=== PATIENT | female | born 1950 | race Hispanic/Latino ===

== ENCOUNTER 2025-02-22 17:48 | Inpatient (IN) | payer MEDICARE, MEDICAID ==
[~2025-02-22] VITALS: Ht 172.7 cm; Wt 89.4 kg
[2025-02-22] MEDS ORDERED: AMIOdarone 150MG VIAL IV ONE (22:15)
[2025-02-22] MEDS ORDERED: rocuRONium bROMide 10MG/1ML 5ML VL IV ONE (22:15)
--- NOTE | 2025-02-22 23:28 | HP ---
[facility] HISTORY AND PHYSICAL Date of Service: February 22, 2025 Time of Service: 23:28 Supervising physicians/attending physicians: Dr. Nathan and Dr. Alexei Burciaga HISTORY OF PRESENT ILLNESS: Ms. Rodriguez is a 74 year old female with a history of AFib, HTN, d yslipidemia, CAD, CHF, and dementia who presented to [facility] as a transfer from [facility] for the Diagnosis of triple-vessel disease and for evaluation of a CABG. The [facility] RN reports that on arrival patient's blood pressure was 82/44, heart rate 81, map 62, 98% on room air. He reports the patient was clammy and diaphoretic. EKG was done which showed sinus rhythm, PACs, L BBB, ST-elevation secondary to IVCD. Per chart review the patient presented to [facility] and was found to have leukocytosis, normocytic anemia, hypokalemia, elevated LFTs, elevated troponin, and hypoalbuminemia. The patient is a Jehovah Witness. The patient had an ultrasound of the abdomen which revealed complex hepatic cyst apparently surgery was consulted in the past but patient declined intervention. Other significant finding was dilated common bile duct with sternal echogenic material with posterior shadowing favoring choledocholithiasis. The patient was transferred on Levophed to ICU and was started on heparin drip. RN called FLOR Robbins/CV surgeon's assistant golf course superintendent as per admission order and to update her on the patient, but there was no answered. RN called Dr. Plascencia and informed him of the patient. Critical care Care was consulted for critical care management. [employer] team we will continue monitoring patient closely alongside of critical Care team, Cardiology, and CV surgeon. During my assessment patient looked fragile and diaphoretic. The patient's breathing was even, unlabored. Daughter at bedside reports that the patient has had a low blood pressure all day at [facility] and that the patient was in 2nd floor which she believes was the ICU. I informed the patient and daughter at bedside of plan of care. They verbalized understanding and are in agreement with the plan. Plan and assessment are listed below. REVIEW OF SYSTEMS 12-point ROS reviewed. All pertinent positives mentioned above. Otherwise negative, noncontributory, non-pertinent. PAST MEDICAL HISTORY: As mentioned above PAST SURGICAL HISTORY: Cholecystectomy PAST SOCIAL HISTORY: Denied alcohol, tobacco, illicit drug use FAMILY HISTORY: Noncontributory Coded Allergies: No Known Drug Allergies (Unverified Allergy, Unknown, 02/22/25) PHYSICAL EXAM GENERAL APPEARANCE: The patient is awake, alert, and oriented, in no acute cardiopulmonary distress. Appears weak, diaphoretic. NEUROLOGICAL: Cranial nerves II-XII grossly intact. Motor is 5/5 in bilateral upper and lower extremities proximal to distal. No sensory deficits. HEENT: Face is symmetric. Pupils are equal and reactive. Extraocular movements are intact. NECK: Supple. No JVD. No thyromegaly. No submental, submandibular, pre- /postauricular, occipital or supraclavicular lymphadenopathy. CHEST: Normal chest expansion. No Telemetry. LUNGS: Absence of any rales, rhonchi or any wheezing. CARDIOVASCULAR: Regular. S1 and S2 normal. No appreciable rubs, murmurs or gallops. ABDOMEN: Soft, nontender, and nondistended. There is no rebound, voluntary guarding, or rigidity. : Deferred. No Means. EXTREMITIES: Non-edematous and not cyanotic. No clubbing. Good capillary refill. SKIN: No skin breakdown. LABS: Laboratory: Test 02/22/25 23:23 Range/Units Whole Blood Glucose 135 H 70-110 MG/DL DIAGNOSTICS / RADIOLOGY: [ ] ASSESSMENT: Triple-vessel disease, POA Non ST-elevation [place] type , elevated troponins Paroxysmal atrial fibrillation with RVR Left ventricular systolic function is moderate, per echo on 02/19/2025 Global wall hypokinesis LVEF is 40-45%, per echo on 02/19/2025. Severe diastolic dysfunction (restrictive filling), per echo on 02/19/2025 Mild aortic, mitral, and tricuspid regurgitation, per echo on 02/19/2025. Bradycardia episodes, POA Rhino virus, possibly bronchopneumonia Transaminitis Polycystic liver disease Significant increase in the size of intrahepatic cystic lesions, associated with increased intrahepatic bile duct dilatation, per MRCP on 02/21/2025 Common bile duct dilatation Chronic problem list: AFib, HTN, dyslipidemia, CAD, CHF, dementia Jehovah Witness PLAN: -Patient transferred from [facility] to [facility]. -Transferred to ICU due to symptomatic hypotension with continuous cardiac monitoring and pulse oximetry monitoring. -Consult cardiology and CV surgeon. (RN informed Dr. Plascencia of patient's arrival) -Start Levophed to keep map above 65. -Start heparin drip. -Stat labs, ABGs, chest x-ray, EKG -Troponin levels and EKG series. -2D echo done at [facility]. -p.r.n. medications for: Pain management, fever, nausea, vomiting, constipation, shortness of breath. -Oxygen supplement as needed to maintain oxygen levels equal to or greater than 92% -Nitroglycerin sublingual as needed chest pain -Atorvastatin 40 mg PO daily. -vital signs per ICU -Reconcile home medications once available. -Glucometer checks before meals and at bedtime with insulin regular sliding scale. -AM labs. -monitor renal and liver function. -Monitor electrolytes and treat accordingly. -DVT and GI prophylaxis: Heparin and Pepcid ADVANCED CARE PLANNING 1. Which of the following were discussed? Hospice Care - No Therapeutic options - Yes Advance Directives - Yes Other discussions - 2. Discussed with who? Patient 3. Voluntary nature of this service was explained to the patient? Yes 4. Amount of time spent - __ over 45 minutes Due to a high probability for clinically significant, life-threatening deterioration, the patient required my highest level of preparedness to intervene emergently, and I personally spent over 45 minutes of critical care time directly and personally managing the patient. I devoted my full attention to the patient during this time, which is separate from time spent on any billable procedures. This includes time spent involved in work directly related to the care of the patient: such as review of prior records, development of treatment plan with patient and/or surrogate as well as nursing, discussions with consultants, evaluation of patient's response to treatment, examination of patient, obtaining history from patient or surrogate, ordering and performing treatments and interventions, ordering and review of laboratory studies, ordering and review of radiographic studies, pulse oximetry and re-evaluation of patient's condition, discussions with the family members and the patient, and any required documentation. This critical care time was performed to assess and manage the high probability of imminent life-threatening deterioration that could result in multi-organ failure. This dictation was prepared using [employer] voice recognition software. As a result, errors may occur. When identified, these errors have been corrected. While every attempt is made to correct errors during dictation, errors may still exist. 5. Reviewed by Physician? (if this service was performed by CANDIE) Yes ATTESTATION BY PHYSICIAN I have seen and examined the patient. I reviewed the documentation, medical decision making, and treatment plan as noted by the mid-level provider above. I agree with the findings and plan of care. ELVIRA BRYAN [facility] February 22, 2025 23:28
[2025-02-22 23:30] VITALS: BP_SYST 82; BP_SYST 87; BP_DIAS 44; BP_DIAS 5; PULSE 80; PULSE 81; RESP 20; RESP 22; TEMP 97.5; TEMP 98
[2025-02-22 23:40] VITALS: BP 86/63; PULSE 80; RESP 20
[2025-02-22 23:44] VITALS: BP 127/86; PULSE 80; RESP 18; TEMP 100.2; O2SAT 98
[2025-02-22 23:54] VITALS: TEMP 100.2
[2025-02-22 23:59] VITALS: BP 108/68; PULSE 80; RESP 17
[2025-02-23] VITALS (72 sets, daily range): BP systolic 70–138; BP diastolic 23–112; PULSE 72–91; RESP 9–72; TEMP 97.5–97.8; O2SAT 92–98
[2025-02-23] MEDS ORDERED: doCUSate SODIUM 100 MG CAP PO PRN
[2025-02-23] MEDS ORDERED: acetaMINOPHEN 650 MG SUPPOSITORY RC PRN
[2025-02-23] MEDS ORDERED: TEMAZepam 15 MG CAPSULE PO PRN
[2025-02-23] MEDS ORDERED: LACTULOSE 20 GM/30 ML UDCUP PO PRN
[2025-02-23] MEDS ORDERED: acetaMINOPHEN 325 MG TAB PO PRN
--- NOTE | 2025-02-23 00:10 | NUR ---
Admission Events 02/22/2025 2330: patient arrived via EMS to room 201 complaining of clamminess and sweating, 12-lead EKG done and vitals taken, patient was hypotensive with systolic in the 80's. Admitting team notified and orders for ICU upgrade obtained, patient to be placed on Levophed drip. 2340: Goldsmith SENIOR WEB APPLICATIONS DEVELOPER at bedside. 2350: patient transferred to ICU. 0000: care endorsed to Jh RYA. 02/23/2025 0006: Dr. Plascencia made aware of admission from [place], and transfer to ICU. Orders obtained to keep patient NPO.
[2025-02-23 00:33] LABS: ABG BASE EXCESS -2.6 mmol/L (-2.0-3.0); ABG HCO3 19.7 mmol/L (21.0-28.0); ABG OXYGEN SATURATION 98.4 % (94.0-98.0); ABG PCO2 26 mmHg (32-45); ABG PH 7.492 (7.350-7.450); CARBON MONOXIDE 0.3 % (0.5-1.5); DEVICE COMMENT ROB RN, RB; HHb 1.6; PO2, ARTERIAL BG 149.8 mmHg (83.0-108.0); VENT MODE, BG 2LNC (ROOM AIR)
[2025-02-23 00:43] LABS: BASOPHILS # (AUTO) 0.03 K/uL (0.00-0.20); BASOPHILS % (AUTO) 0.1 % (0.0-5.0); HEMATOCRIT 27.2 % (36-48); IMMATURE GRANULOCYTE ABSOLUTE 0.16 K/uL (0-1); MEAN CORPUSCULAR HEMOGLOBIN 31.9 pg (27.0-33.0); MEAN CORPUSCULAR HGB CONC 34.9 g/dL (32.0-36.0); MEAN CORPUSCULAR VOLUME 91.3 fL (79-99); MONOCYTES # (AUTO) 1.5 K/uL (0.1-1.0); MONOCYTES % (AUTO) 7.5 % (3.0-13.0); NEUTROPHILS # (AUTO) 16.4 K/uL (1.8-7.7); NEUTROPHILS % (AUTO) 81.6 % (40.0-77.0); PLATELET COUNT (AUTO) 217 K/uL (130-400); RED BLOOD CELL COUNT(AUTO) 2.98 MIL/uL (4.00-5.50); RED CELL DISTRIBUTION WIDTH 13.4 % (11.0-15.5); WHITE BLOOD COUNT (AUTO) 20.1 K/uL (4.8-10.8)
[2025-02-23 00:50] LABS: CREATININE 2.8 mg/dL (0.5-1.0); POTASSIUM 3.7 mmol/L (3.5-5.1)
[2025-02-23 01:04] LABS: ALBUMIN 2.5 g/dL (3.5-5.0); BILIRUBIN,TOTAL 3.5 mg/dL (0.2-1.0)
[2025-02-23 01:15] LABS: B-TYPE NATRIURETIC PEPTIDE 80 pg/mL (0-100)
[2025-02-23 01:16] LABS: WBC MORPHOLOGY CONSISTENT W/DIFF
[2025-02-23] MEDS: NOREPINEPHRIN 4MG/NS 250ML 250 ML IV ONE (01:49)
[2025-02-23] MEDS: atorVAStatin 40 MG TABLET PO SCH (01:51)
[2025-02-23] MEDS: HEParin 25,000 UNITS/250ML D5W 250 ML IV SCH (01:55)
[2025-02-23 04:48] LABS: HEMATOCRIT 28.9 % (36-48); MEAN CORPUSCULAR HGB CONC 33.2 g/dL (32.0-36.0); MEAN CORPUSCULAR VOLUME 93.2 fL (79-99); NUCLEATED RED BLOOD CELLS 0.1 % (0.0-0.19); RED BLOOD CELL COUNT(AUTO) 3.1 MIL/uL (4.00-5.50); RED CELL DISTRIBUTION WIDTH 13.8 % (11.0-15.5); WHITE BLOOD COUNT (AUTO) 19.4 K/uL (4.8-10.8)
[2025-02-23 05:02] LABS: CREATININE 3.1 mg/dL (0.5-1.0); MAGNESIUM 2.2 mg/dL (1.80-2.40); PHOSPHORUS 5.9 mg/dL (2.5-4.9); POTASSIUM 3.7 mmol/L (3.5-5.1); THYROID STIMULATING HORMONE 2.59 uIU/mL (0.36-3.74)
[2025-02-23 05:07] LABS: HEMOGLOBIN A1C 5.9 % (4.0-6.0)
[2025-02-23] MEDS: NOREPINEPHRIN 4MG/NS 250ML 250 ML IV SCH (06:39)
[2025-02-23] MEDS: INSULIN humuLIN R 100 UNIT/ML 3ML SQ SCH (06:49)
--- NOTE | 2025-02-23 08:48 | EKG ---
[facility] Test Date: 2025-02-22 Test Time: 23:16:00 Pat Name: YVONNE STINSON Department: [facility] Room: 208 1 Gender: F Aix Administrator: ruben rn : [id number] Requested By: ELVIRA BRYAN Order Number: [id number] Reading MD: Jewel Farris Measurements Intervals [place] Rate: 82 P: -33 OR: 136 QRS: -39 QRSD: 165 T: 69 QT: 520 QTc: 606 Interpretive Statements Sinus rhythm Atrial premature complexes Left bundle branch block ST elevation secondary to IVCD No previous ECG available for comparison Electronically Signed On 02-25-2025 12:27:09 CDT by Jewel Farris Please click the below link to view image of tracing.
--- NOTE | 2025-02-23 09:07 | HMCIMG ---
Exam Type: CHEST 1VW Clinical Information: shortness of breath Comparison: None Findings: The lungs are clear of infiltrates. The heart is enlarged. Bony and soft tissue structures of the chest wall are unremarkable. IMPRESSION: Cardiomegaly. Clear lungs.
--- NOTE | 2025-02-23 09:27 | PN ---
[facility] PROGRESS NOTE Date of Service: February 23, 2025 Time of Service: 09:19 SUBJECTIVE: [ ] Ms. Rodriguez is a 74 year old female with a history of AFib, HTN, dyslipidemia, CAD, CHF, and dementia who presented to [place] as a transfer from [facility] for the Diagnosis of triple-vessel disease and for evaluation of a CABG. The patient was seen by me on arrival to [facility]. RN reports that on arrival patient's blood pressure was 82/44, heart rate 81, map 62, 98% on room air. He reports the patient was clammy and diaphoretic. EKG was done which showed sinus rhythm, PACs, L BBB, ST-elevation secondary to IVCD. Per chart review the patient presented to [facility] and was found to have leukocytosis, normocytic anemia, hypokalemia, elevated LFTs, elevated troponin, and hypoalbuminemia. The patient is a Jehovah Witness. The patient had an ultrasound of the abdomen which revealed complex hepatic cyst apparently surgery was consulted in the past but patient declined intervention. Other significant finding was dilated common bile duct with sternal echogenic material with posterior shadowing favoring choledocholithiasis. The patient was transferred on Levophed to ICU and was started on heparin drip. 02/23 patient is seen and evaluated earlier this morning at bedside, patient alert and oriented x3, on supplemental oxygen via nasal cannula at 2 L, saturating 98%, she remains on heparin drip and Levophed. Denies chest pain, denied shortness a breath. Chest x-ray reviewed, cardiomegaly with clear lungs. Patient noted to have leukocytosis, with WBC 9.4, hemoglobin stable at 9.6. The patient 3.1. Daughter is at bedside during my visit, updated. REVIEW OF SYSTEMS 12-point ROS reviewed. All pertinent positives mentioned above. Otherwise negative, noncontributory, non-pertinent. PHYSICAL EXAM GENERAL APPEARANCE: The patient is awake, alert, and oriented, in no acute cardiopulmonary distress. Appears weak, diaphoretic. NEUROLOGICAL: Cranial nerves II-XII grossly intact. Motor is 5/5 in bilateral upper and lower extremities proximal to distal. No sensory deficits. HEENT: Face is symmetric. Pupils are equal and reactive. Extraocular movements are intact. NECK: Supple. No JVD. No thyromegaly. No submental, submandibular, pre-/po stauricular, occipital or supraclavicular lymphadenopathy. CHEST: Normal chest expansion. No Telemetry. LUNGS: Absence of any rales, rhonchi or any wheezing. CARDIOVASCULAR: Regular. S1 and S2 normal. No appreciable rubs, murmurs or gallops. ABDOMEN: Soft, nontender, and nondistended. There is no rebound, voluntary guarding, or rigidity. : Deferred. No Means. EXTREMITIES: Non-edematous and not cyanotic. No clubbing. Good capillary refill. SKIN: No skin breakdown. Vital Signs (last 8hr) Date Time Temp Pulse Resp B/P (MAP) Pulse Ox O2 Delivery O2 Flow Rate FiO2 02/23/25 06:29 78 19 112/50 (70) 97 02/23/25 06:14 75 16 100/42 (61) 98 02/23/25 05:59 75 12 95/68 (77) 97 02/23/25 05:44 76 16 98/78 (85) 97 02/23/25 05:30 76 17 101/72 (82) 98 02/23/25 05:15 75 16 95/59 (71) 97 02/23/25 05:12 77 17 130/95 (107) 97 02/23/25 04:06 97.5 77 15 111/69 (83) 97 02/23/25 04:06 77 15 111/69 97 Nasal Cannula 2.0 02/23/25 04:00 98 Nasal Cannula* 2 28 02/23/25 01:59 84 41 103/56 (72) 96 02/23/25 01:59 84 41 103/56 96 Nasal Cannula 2.0 02/23/25 01:45 83 17 126/74 99 Nasal Cannula 2.0 02/23/25 01:45 83 17 126/74 (91) 99 02/23/25 01:30 83 19 70/32 97 Nasal Cannula 2.0 02/23/25 01:30 83 19 70/32 (45) 97 LABS: Laboratory: Test 02/23/25 06:45 02/23/25 03:54 02/23/25 00:33 02/23/25 00:32 Range/Units Whole Blood Glucose 129 H 70-110 MG/DL White Blood Count 19.4 H 4.8-10.8 K/uL Red Blood Count 3.10 L 4.00-5.50 MIL/uL Hemoglobin 9.6 L 12.0-16.0 g/dL Hematocrit 28.9 L 36-48 % Mean Corpuscular Volume 93.2 79-99 fL Mean Corpuscular Hemoglobin 31.0 27.0-33.0 pg Mean Corpuscular Hemoglobin Concent 33.2 32.0-36.0 g/dL Red Cell Distribution Width 13.8 11.0-15.5 % Platelet Count 237 130-400 K/uL Mean Platelet Volume 11.9 H 7.5-10.5 fL Nucleated Red Blood Cells 0.1 0.0-0.19 % Sodium Level 127 L 136-145 mmol/L Potassium Level 3.7 3.5-5.1 mmol/L Chloride Level 91 L 101-111 mmol/L Carbon Dioxide Level 22 21-32 mmol/L Blood Urea Nitrogen 46 H 7-18 mg/dL Creatinine 3.1 H 0.5-1.0 mg/dL Glomerular Filtration Rate Calc 15 >90 mL/min Random Glucose 246 #H 70-105 mg/dL Hemoglobin A1c 5.9 4.0-6.0 % Estimated Average Glucose (eAG) 123 70-126 mg/dL Total Calcium 8.1 L 8.5-10.1 mg/dL Phosphorus Level 5.9 H 2.5-4.9 mg/dL Magnesium Level 2.20 1.80-2.40 mg/dL Thyroid Stimulating Hormone (TSH) 2.59 0.36-3.74 uIU/mL Immature Granulocyte % (Auto) 0.8 0-1 % Neutrophils (%) (Auto) 81.6 H 40.0-77.0 % Lymphocytes (%) (Auto) 10.0 L 21.0-51.0 % Monocytes (%) (Auto) 7.5 3.0-13.0 % Eosinophils (%) (Auto) 0.0 0.0-8.0 % Basophils (%) (Auto) 0.1 0.0-5.0 % Neutrophils # (Auto) 16.4 H 1.8-7.7 K/uL Lymphocytes # (Auto) 2.0 1.0-4.8 K/uL Monocytes # (Auto) 1.5 H 0.1-1.0 K/uL Eosinophils # (Auto) 0.00 0.00-0.70 K/uL Basophils # (Auto) 0.03 0.00-0.20 K/uL Absolute Immature Granulocyte (auto 0.16 0-1 K/uL White Cell Morphology Comment CONSISTENT W/DIFF Activated Partial Thromboplast Time 35.1 26.3-35.5 SEC Total Bilirubin 3.5 H 0.2-1.0 mg/dL Aspartate Amino Transf (AST/SGOT) 768 *H 10-37 U/L Alanine Aminotransferase (ALT/SGPT) 705 *H 12-78 U/L Alkaline Phosphatase 565 H 50-136 U/L Troponin I High Sensitivity 403 *H 4-50 ng/L B-Type Natriuretic Peptide 80 0-100 pg/mL Total Protein 7.0 6.0-8.3 g/dL Albumin 2.5 L 3.5-5.0 g/dL Blood Gas Specimen Type Arterial Arterial Blood pH 7.492 H 7.350-7.450 Arterial Blood Partial Pressure CO2 26 L 32-45 mmHg Arterial Blood Partial Pressure O2 149.8 H 83.0-108.0 mmHg Arterial Blood HCO3 19.7 L 21.0-28.0 mmol/L Arterial Blood Oxygen Saturation 98.4 H 94.0-98.0 % Arterial Blood Base Excess -2.6 L -2.0-3.0 mmol/L Hemoglobin (Blood Gas) 10.3 L 12.0-16.0 g/dL Sodium (Blood Gas) 130 L 136-145 MMOL/L Bedside Potassium (Blood Gas) 3.8 3.4-4.5 MMOL/L Bedside Chloride (Blood Gas) 96 L 98-107 MMOL/L Bedside Glucose (Blood Gas) 156 H 65-95 MG/DL Bedside Ionized Calcium (Blood Gas) 1.05 L 1.15-1.33 MMOL/L Bedside Lactic Acid (Blood Gas) 2.30 H 0.36-0.75 MMOL/L Blood Gas Temperature 37.0 35.5-37.0 CELSIUS Blood Gas Flow-by 2.00 0.00-15.00 L/min Blood Gas Vent Mode 2LNC ROOM AIR FiO2 28.0 % Blood Gas Specimen Comment TERESA RN, RB Current Medications Medications (Trade) Dose Ordered Sig/Nathan Route PRN Reason Start Time Stop Time Status Last Admin Dose Admin Acetaminophen (TYLenol 325MG TAB) 650 mg Q6H PRN PO FEVER/MILD PAIN LEVEL 1-3 02/23/25 00:00 03/25/25 00:00 Acetaminophen (TYLenol 650MG SUPPOSITORY) 650 mg Q6H PRN RC FEVER / MILD PAIN 1-3 IF NPO 02/23/25 00:00 03/25/25 00:00 Atorvastatin Calcium (LIPItor 40MG) 40 mg HS PO 02/23/25 00:15 03/25/25 00:14 02/23/25 01:51 40 MG Docusate Sodium (COLace 100MG CAP) 100 mg BID PRN PO CONSTIPATION 02/23/25 00:00 03/25/25 00:00 Doxycycline Hyclate 250 ml @ 125 mls/hr Q12H IV 02/23/25 09:30 03/05/25 09:29 Heparin Sodium/ Dextrose 250 ml @ 0 mls/hr PROTOCOL IV 02/23/25 00:30 03/25/25 00:29 02/23/25 01:55 15 MLS/HR Insulin Human Regular (humuLIN R 100 UNIT/ML 3ML) INSULIN SLIDING SCAL... ACHS SQ 02/23/25 07:30 03/25/25 07:29 Lactulose (Constulose 20gm/ 30ml Udcup) 20 gm Q6H PRN PO CONSTIPATION 02/23/25 00:00 03/25/25 00:00 Norepinephrine 250 ml @ 33.509 mls/ hr PROTOCOL IV 02/23/25 05:30 03/25/25 05:29 02/23/25 06:39 33.509 MLS/HR Ondansetron HCl (zoFRAN 4MG INJ) 4 mg Q6H PRN IVP NAUSEA/VOMITING 02/23/25 00:00 03/25/25 00:00 Piperacillin Sod/ Tazobactam Sod (Zosyn 3.375gm+NS 50ml) 3.375 gm Q12H IV 02/23/25 09:30 03/05/25 09:29 Sodium Bicarbonate (Sodium Bicarbonate) 650 mg BID PO 02/23/25 21:00 03/25/25 20:59 Temazepam (restORIL 15 MG CAP) 15 mg HS PRN PO INSOMNIA/SLEEP 02/23/25 00:00 03/25/25 00:00 DIAGNOSTICS / RADIOLOGY: [ ] Exam Type: CHEST 1VW Clinical Information: shortness of breath Comparison: None Findings: The lungs are clear of infiltrates. The heart is enlarged. Bony and soft tissue structures of the chest wall are unremarkable. IMPRESSION: Cardiomegaly. Clear lungs. ASSESSMENT: Possible Septic shock, POA Possible acute ascending cholangitis, POA Triple-vessel disease, POA Non ST-elevation [place] type , elevated troponins Paroxysmal atrial fibrillation with RVR Left ventricular systolic function is moderate, per echo on 02/19/2025 Global wall hypokinesis LVEF is 40-45%, per echo on 02/19/2025. Severe diastolic dysfunction (restrictive filling), per echo on 02/19/2025 Mild aortic, mitral, and tricuspid regurgitation, per echo on 02/19/2025. Bradycardia episodes, POA Rhino virus, possibly bronchopneumonia Transaminitis Polycystic liver disease Significant increase in the size of intrahepatic cystic lesions, associated with increased intrahepatic bile duct dilatation, per MRCP on 02/21/2025 Common bile duct dilatation Chronic problem list: AFib, HTN, dyslipidemia, CAD, CHF, dementia Jehovah Witness Anemia of chronic disease PLAN: Patient remains admitted to the ICU Continue the patient on supplemental oxygen via nasal cannula at 2 L to keep oxygen saturation greater than 94% Continue the patient on Levophed, wean as tolerated Continue the patient on heparin drip Critical care consultation requested, we will follow input and recommendation Cardiothoracic surgery consultation requested, we will follow input and recommendation The patient with transaminitis, per chart review, admission [facility], The patient had an ultrasound of the abdomen which revealed complex hepatic cyst apparently surgery was consulted in the past but patient declined intervention. Other significant finding was dilated common bile duct with sternal echogenic material with posterior shadowing favoring choledocholithiasis. Continue the patient on broad-spectrum IV antibiotics with Zosyn IV and doxycycline IV We will request Infectious Disease consultation Septic workup to include two sets of blood cultures, UA and urine culture We will perform liver ultrasound at the bedside for further evaluation Continue to monitor liver enzymes in a.m. Follow anemia workup Jehovah Witness NEURO: Minimize central acting medications as possible. Fall Precautions. Well lighted room through the day and minimize interruptions through the night to prevent acute delirium. PULMONARY: Supplemental 02 as needed BiPAP as necessary, for respiratory distress Titrate Fio2 to keep Spo2 > or = 90% DuoNebs and CPT as needed IS hourly while awake for pulmonary hygiene prn Out of bed to chair as tolerated Maintain aspiration precautions at all times CARDIOVASCULAR: Follow hemodynamics. Vital signs per facility protocol GI & NUTRITION: Continue nutritional support Aspirations precautions Prokinetic agents and laxatives as needed KIDNEYS & ELECTROLYTES: Strict monitoring of intake and output Daily weights Avoid nephrotoxic agents Monitor electrolytes and replace as needed Goal urine output of 30mL/hr or 0.5mL/kg/hr Medications to be dosed according to renal function. Avoid contrast if possible ENDOCRINE: Maintain blood glucose between 100-180 at all times. Insulin sliding scale for blood glucose management Hypoglycemia and hyperglycemia protocol in place INFECTIOUS DISEASE: Trend temperature, WBC and procalcitonin level Follow cultures, deescalate antibiotics as soon as possible. Panculture if new onset fever HEMATOLOGY & COAGULATION: Monitor H&H. Keep Hgb > 7 Transfuse 1 unit of PRBC for Hgb < 7 Transfuse 1 pack of platelets of platelets < 20, 000 Watch for any signs and symptoms of bleeding SKIN: Pressure ulcer prevention per facility protocol Specialty mattress as needed ORTHO/REHAB Continue PT/OT PRN: MEDICATIONS Tylenol 650 mg po every 4 hrs for fever zofran 4 mg IV every 6 hrs for n/v Hydralazine 5 mg IV every 4 hrs systolic pressure > 160 bowel regiment: lactulose 20 gm PO BID PRN constipation Supportive measures: Continue GI and DVT prophylaxis Disposition: Pending improvement in clinical condition All questions answered time spent: > 35 min FRANCIA SETHI MD February 23, 2025 09:27
--- NOTE | 2025-02-23 09:37 | CONS ---
[facility] CONSULTATION NOTE Date Patient Seen: February 23, 2025 Time of Visit: 09:37 Supervising Physician: Katia Garsia MD Reason for Consultation: [facility] Primary Care Physician: Kin Guerra MD Outpatient Specialists: Inpatient Consults: Dr Kaley PICKENS, Dr Kelton Patel MD , MD Dr Tito Lima MD PROBLEM LIST: Septic shock POA MvCAD- pending CABG eval POA NSTEMI Type II POA Paroxysmal atrial fibrillation with RVR [id number] score 5 Points, HAS Bled Score of 4 Points (High Risk for bleed) Chronic diastolic Heart Failure with EF of 40-45% POA 02/19/25 Mild aortic, mitral, and tricuspid regurgitation, per echo on 02/19/2025. Bradycardia episodes, POA + Rhino virus POA (Tested + at [facility]) Transaminitis Polycystic liver disease Significant increase in the size of intrahepatic cystic lesions, associated with increased intrahepatic bile duct dilatation, per MRCP on 02/21/2025 Common bile duct dilatation Chronic problem list: AFib, HTN, dyslipidemia, CAD, CHF, dementia Jehovah Witness HPI: This is a 74-year-old obese female with a past medical history of atrial fibrillation, hypertension, dyslipidemia, multivessel CAD, CHF and dementia who was transferred from [facility] for evaluation of multivessel CAD for possible CABG. Per patient and daughter she presented to [facility] for complaints of cold-like symptoms, she was found to be positive for rhino virus and was found to have leukocytosis, normocytic anemia hypokalemia elevated LFTs and elevated troponin. The patient had ultrasound of the abdomen which revealed complex hepatic cyst apparently surgery was consulted in the past but patient declined intervention. There was a significant findings of dilated common bile duct was sternal echogenic material with posterior shadowing favoring choledocholithiasis. Patient was worked up with an MRCP on 02/21/25 which showed significant increasing size of intrahepatic cystic lesions with increased intrahepatic bile duct dilation. Apparently patient has a history of multivessel CAD and was transferred for evaluation by CV for possible CABG. At the time of my assessment patient was in the ICU on a heparin drip and Levophed at 0.04 mcg/kg per minute. She appeared critically ill with possible septic shock. Vital signs: Heart rate in the 70s respiratory rate of 20 blood pressure 118/78 saturating 96% with 2 L via nasal cannula. She is afebrile with a T-max of 100.2 F and a T low of 97.5. white count of 20.7 H&H of 8.6/25.7 platelet count of 211 K. sodium of 130 potassium 3.8 chloride of 94 BUN of 55, creatinine 3.5 worsening GFR of 13 patient is not on hemodialysis patient and does have a previous history of CKD but now is worsening lactic acid of 4.2 total calcium 7.7 AST of 702 trending down slightly alkaline phosphatase 484 and total bili 3.1. Sensitive Troponins were trended 403, now 416. TSH was normal albumin of 2.3. She is pending US of abdomen complete. PAST MEDICAL HX: see above PAST SURGICAL HX: noncontributory SOCIAL HISTORY: No tobacco, ETOH, or illicit drug use Coded Allergies: No Known Drug Allergies (Unverified Allergy, Unknown, 02/22/25) REVIEW OF SYSTEMS: Const: Yes to fever and fatigue, no weight changes. Eyes:[ no recent vision problems] ENT: [No congestion, ear pain, or sore throat] C/V: [no chest pain, palpitations or edema] Resp: [No cough, congestion, wheezing , or Shortness of breath] GI: Yes to abdominal pain nausea no diarrhea. : [No incontinence of or dyuria] M/S: [No joint or pain swelling] Skin: [No rash] Neuro: [no headache, focal numbness, or weakness, dizziness or seizures] Psych: [no depression or anxiety] Heme: [no abnormal bruising or bleeding] Lymph: [no swollen glands] PHYSICAL EXAM: GENERAL: alert, weak, awake oriented x 3 HEENT: EOMI, Sclera non icteric, moist mucosa NECK: Supple, no JVD, trachea midline LUNGS: Clear breath sounds bilaterally. No wheezes HEART: Regular rate and rhythm. Normal S1 and S2, without murmurs ABD: Abdomen soft, nontender. Bowel sounds present EXT: No clubbing cyanosis or edema NEURO: Alert and oriented to person, follows commands Vital Signs (last 8hr) Date Time Temp Pulse Resp B/P (MAP) Pulse Ox O2 Delivery O2 Flow Rate FiO2 02/23/25 06:29 78 19 112/50 (70) 97 02/23/25 06:14 75 16 100/42 (61) 98 02/23/25 05:59 75 12 95/68 (77) 97 02/23/25 05:44 76 16 98/78 (85) 97 02/23/25 05:30 76 17 101/72 (82) 98 02/23/25 05:15 75 16 95/59 (71) 97 02/23/25 05:12 77 17 130/95 (107) 97 02/23/25 04:06 97.5 77 15 111/69 (83) 97 02/23/25 04:06 77 15 111/69 97 Nasal Cannula 2.0 02/23/25 04:00 98 Nasal Cannula* 2 28 02/23/25 01:59 84 41 103/56 (72) 96 02/23/25 01:59 84 41 103/56 96 Nasal Cannula 2.0 02/23/25 01:45 83 17 126/74 99 Nasal Cannula 2.0 02/23/25 01:45 83 17 126/74 (91) 99 LABS: Hematology Labs: Test 02/23/25 03:54 02/23/25 00:33 Range/Units White Blood Count 19.4 H 4.8-10.8 K/uL Red Blood Count 3.10 L 4.00-5.50 MIL/uL Hemoglobin 9.6 L 12.0-16.0 g/dL Hematocrit 28.9 L 36-48 % Mean Corpuscular Volume 93.2 79-99 fL Mean Corpuscular Hemoglobin 31.0 27.0-33.0 pg Mean Corpuscular Hemoglobin Concent 33.2 32.0-36.0 g/dL Red Cell Distribution Width 13.8 11.0-15.5 % Platelet Count 237 130-400 K/uL Mean Platelet Volume 11.9 H 7.5-10.5 fL Nucleated Red Blood Cells 0.1 0.0-0.19 % Immature Granulocyte % (Auto) 0.8 0-1 % Neutrophils (%) (Auto) 81.6 H 40.0-77.0 % Lymphocytes (%) (Auto) 10.0 L 21.0-51.0 % Monocytes (%) (Auto) 7.5 3.0-13.0 % Eosinophils (%) (Auto) 0.0 0.0-8.0 % Basophils (%) (Auto) 0.1 0.0-5.0 % Neutrophils # (Auto) 16.4 H 1.8-7.7 K/uL Lymphocytes # (Auto) 2.0 1.0-4.8 K/uL Monocytes # (Auto) 1.5 H 0.1-1.0 K/uL Eosinophils # (Auto) 0.00 0.00-0.70 K/uL Basophils # (Auto) 0.03 0.00-0.20 K/uL Absolute Immature Granulocyte (auto 0.16 0-1 K/uL White Cell Morphology Comment CONSISTENT W/DIFF Chemistry Labs: Test 02/23/25 06:45 02/23/25 03:54 02/23/25 00:33 Range/Units Whole Blood Glucose 129 H 70-110 MG/DL Sodium Level 127 L 136-145 mmol/L Potassium Level 3.7 3.5-5.1 mmol/L Chloride Level 91 L 101-111 mmol/L Carbon Dioxide Level 22 21-32 mmol/L Blood Urea Nitrogen 46 H 7-18 mg/dL Creatinine 3.1 H 0.5-1.0 mg/dL Glomerular Filtration Rate Calc 15 >90 mL/min Random Glucose 246 #H 70-105 mg/dL Hemoglobin A1c 5.9 4.0-6.0 % Estimated Average Glucose (eAG) 123 70-126 mg/dL Total Calcium 8.1 L 8.5-10.1 mg/dL Phosphorus Level 5.9 H 2.5-4.9 mg/dL Magnesium Level 2.20 1.80-2.40 mg/dL Thyroid Stimulating Hormone (TSH) 2.59 0.36-3.74 uIU/mL Total Bilirubin 3.5 H 0.2-1.0 mg/dL Aspartate Amino Transf (AST/SGOT) 768 *H 10-37 U/L Alanine Aminotransferase (ALT/SGPT) 705 *H 12-78 U/L Alkaline Phosphatase 565 H 50-136 U/L Troponin I High Sensitivity 403 *H 4-50 ng/L B-Type Natriuretic Peptide 80 0-100 pg/mL Total Protein 7.0 6.0-8.3 g/dL Albumin 2.5 L 3.5-5.0 g/dL Coagulation Labs: Test 02/23/25 07:53 Range/Units Activated Partial Thromboplast Time > 139.0 #*H 26.3-35.5 [facility] / RADIOLOGY RESULTS: [ ] IMAGING REPORT Signed PATIENT: YVONNE STINSON MR#: [id number] : 1950 SEX: F AGE: 74 LOCATION: 2B ORDER STATUS: ADM IN REPORT#: [id number] SERVICE REASON: shortness of breath ORDERING PHYSICIAN: ELVIRA BRYAN PROCEDURE: CXR1VW - CHEST 1VW Exam Type: CHEST 1VW Clinical Information: shortness of breath Comparison: None Findings: The lungs are clear of infiltrates. The heart is enlarged. Bony and soft tissue structures of the chest wall are unremarkable. IMPRESSION: Cardiomegaly. Clear lungs. DICTATED BY: KIT ALEMAN MD DATE: 02/23/25902 ELECTRONICALLY SIGNED BY: KIT ALEMAN MD DATE: 02/23/25906 PLAN ICU care Cardiac monitoring Cardiac enzymes BNP follow cardiology recommendations 2D echo done admission [facility] which shows EF of 4 40-45% CV has been consulted pending eval and recommendations Patient currently on heparin drip per protocol Monitor for bleeding PPI for risk of bleeding Statin therapy Glucose goal between 82 180 mg/dL Atorvastatin on hold due to elevated liver enzymes Sodium bicarb 650 mg p.o. b.i.d. Start Zosyn IV q.12 hours Doxycycline 100 mg IV q.12 hours Patient is NPO due to abdominal pain and nausea.-IVF with NS at 50 mL/hour for now. Stop IV fluids once patient tolerates p.o.. Appreciate GI eval and recommendations NEURO: Minimize central acting medications as possible. Fall Precautions. Well lighted room through the day and minimize interruptions through the night to prevent acute delirium. Patient with underlying history of dementia-melatonin q.h.s. PULMONARY: Supplemental 02 as needed Titrate Fio2 to keep Spo2 > or = 90% DuoNebs and CPT as needed IS hourly while awake for pulmonary hygiene Out of bed to chair as tolerated CXR with no obvious infiltrates CARDIOVASCULAR: Follow hemodynamics. Titrate vasopressor to keep MAP >65 or systolic blood pressure >95mmHg Continuous cardiac monitoring Consult cardiology and follow recommendations Monitor troponin levels Cardiac panel CV surgeon eval and recommendations Drips: Levophed Heparin LINES: PIV Pending PICC line GI & NUTRITION: Continue nutritional support Aspirations precautions Prokinetic agents and laxatives as needed NPO due to severe abdominal pain and nausea GI consulted and appreciate recs us abdomen complete per primary team CT abdomen and pelvis to rule out intraabdominal infection KIDNEYS & ELECTROLYTES: Strict monitoring of intake and output Daily weights Avoid nephrotoxic agents Monitor electrolytes and replace as needed Goal urine output of 30mL/hr or 0.5mL/kg/hr potassium half protocol magnesium protocol ENDOCRINE: Maintain blood glucose between 100-180 at all times. Insulin sliding scale for blood glucose management A1C 5.9 at [facility]. TSH normal INFECTIOUS DISEASE: Trend temperature. Doyle-culture if febrile. Micro: [ ] Respiratory Urine Blood cultures covid Influenza a and B swab COVID-19 swab Antibiotics: Zosyn Doxy HEMATOLOGY & COAGULATION: Monitor H&H. Keep Hgb > 7 Transfuse 1 unit of PRBC for Hgb < 7 Transfuse 1 pack of platelets of platelets < 20, 000 Watch for any signs and symptoms of bleeding SKIN: Pressure ulcer prevention per facility protocol Rehab: PT/OT Prophylaxis: GI: Protonix DVT: Patient currently on heparin drip Code Status: Full Resuscitation Disposition: ICU Other: Critical care time This patient required multiple bedside visits to manage the patient, review blood gases, coordinate with respiratory, nurses, talk to [Specialist] review radiology exams, talk to the family members and discuss advanced directives. I personally spent 90 minutes of critical care time in treatment of this patient. This includes patient management, time at bedside, time reviewing tests, labs, appropriate images and studies, documentation, and patient care coordination. This time excludes separately billable procedures. Case was discussed and seen with my supervising physician. The above plan was formulated and agreed upon. ANTHONY CHIU [facility] February 23, 2025 09:37
[2025-02-23] MEDS: LACTATED RINGERS 1000ML IV SCH (09:44)
[2025-02-23] MEDS: hydroMORPHone 0.5 MG SYG (0.5MG/0.5ML) IVP ONE ×2 (10:34→12:24)
[2025-02-23] MEDS: ZOSYN 3.375GM +NS 50ML IV SCH (10:35)
[2025-02-23] MEDS: DOXYCYCLINE 100MG+NS 250ML 250 ML IV SCH (10:35)
[2025-02-23] MEDS: PoTASSium chloRIDE 20MEQ/100ML 100 ML IV ONE (10:35)
[2025-02-23 10:41] LABS: BASOPHILS # (AUTO) 0.03 K/uL (0.00-0.20); BASOPHILS % (AUTO) 0.1 % (0.0-5.0); HEMATOCRIT 25.7 % (36-48); IMMATURE GRANULOCYTE ABSOLUTE 0.22 K/uL (0-1); LYMPHOCYTES # (AUTO) 1.9 K/uL (1.0-4.8); LYMPHOCYTES % (AUTO) 9.3 % (21.0-51.0); MEAN CORPUSCULAR HEMOGLOBIN 31.2 pg (27.0-33.0); MEAN CORPUSCULAR HGB CONC 33.5 g/dL (32.0-36.0); MEAN CORPUSCULAR VOLUME 93.1 fL (79-99); MONOCYTES # (AUTO) 1.6 K/uL (0.1-1.0); MONOCYTES % (AUTO) 7.8 % (3.0-13.0); NEUTROPHILS # (AUTO) 16.9 K/uL (1.8-7.7); NEUTROPHILS % (AUTO) 81.7 % (40.0-77.0); NUCLEATED RED BLOOD CELLS 0.1 % (0.0-0.19); PLATELET COUNT (AUTO) 211 K/uL (130-400); RED BLOOD CELL COUNT(AUTO) 2.76 MIL/uL (4.00-5.50); RED CELL DISTRIBUTION WIDTH 13.8 % (11.0-15.5); WHITE BLOOD COUNT (AUTO) 20.7 K/uL (4.8-10.8)
[2025-02-23 10:58] LABS: % IRON SATURATION 56.3 % (22-44)
[2025-02-23 11:09] LABS: ALBUMIN 2.3 g/dL (3.5-5.0); BILIRUBIN,TOTAL 3.1 mg/dL (0.2-1.0); CREATININE 3.5 mg/dL (0.5-1.0); POTASSIUM 3.8 mmol/L (3.5-5.1); TOTAL PROTEIN, SERUM 6.6 g/dL (6.0-8.3)
[2025-02-23 11:40] LABS: INR 1.21 (0.85-1.15); PROTHROMBIN TIME 12.6 SEC (9.6-11.6)
--- NOTE | 2025-02-23 11:40 | NUR ---
DCP: HOME Pt is from [facility] and was transferred from [facility] to [facility]. Pt lives alone in her home. Sons Nate and Valentin [phone] tend to pt and assist her as needed, Pt has a provider services 4hrs daily, to assist her with ADLS, home management and meal prep. Pt uses a walker and has no HH or HD services. PCP is Kin Ruiz and she uses [facility] for rx. DCP is home wih family to assist during recovery as needed. Addendum: 02/23/25 at 1141 by DEA CHICAS SS Amended: Links added.
[2025-02-23] MEDS: 0.9%NACL 1000ML 1,000 ML IV SCH (11:50)
[2025-02-23] MEDS ORDERED: PoTASSium chloRIDE 20MEQ ER 20 MEQ ERTAB PO PRN (13:00)
[2025-02-23] MEDS ORDERED: MAGNESIUM 2GM PREMIX 50ML 50 ML IV PRN (13:00)
[2025-02-23] MEDS ORDERED: PoTASSium chloRIDE 10MEQ/100ML 100 ML IV PRN ×2 (13:00)
[2025-02-23] MEDS ORDERED: PoTASSium chl 10% ELIXIR 20MEQ 20 MEQ/15 ML UDCUP PO PRN (13:00)
--- NOTE | 2025-02-23 14:32 | HMCIMG ---
Exam Type: CHEST 1VW Clinical Information: PICC PLACEMENT Comparison: None Findings: Left PICC line is noted with tip within the mid superior vena cava and there are no other interval changes. IMPRESSION: Left PICC line as noted.
--- NOTE | 2025-02-23 14:36 | HMCIMG ---
Exam Type: CT ABDOMEN/PELVIS W/O CONTRAST Clinical Information: rule out intrabdominal infection Comparison: None CT Dose Index (CTDI): 10.20 mGy Dose Length Product (DLP): 530.00 total mGy-cm PROTOCOL: Routine noncontrast helical scanning of the abdomen and pelvis was performed at 5mm collimation. Findings: Please note that this is a noncontrast study but there is residual contrast within the urinary tract, probably from a recent exam. Please correlate with patient's immediate history. The liver is enlarged and there is a complex structure within the right lobe extending into the left lobe, large, centrally located and measuring 16.1 x 14.3 cm. The appearance of the structures that of a developing abscess or a parenchymal hematoma of the liver, less likely. No evidence of nephro or ureterolithiasis is found. No hydronephrosis or ureteral dilatation is seen. The lung bases are clear. The stomach is unremarkable. It shows no wall thickening. No gross ulceration is seen. It is not overly distended. There are no surrounding inflammatory changes. No wall lesions are identified to suggest cancer. The spleen is unremarkable. It is not enlarged. The pancreas shows normal anatomy. It is not fatty replaced. It shows no lesions. The pancreatic duct is not dilated. The gallbladder is surgically absent. The adrenal glands are unremarkable. There is no enlargement. No lesions are noted. The appendix is unremarkable. It shows no evidence of inflammation. No appendicolith is seen. The small bowel is unremarkable. There is no evidence of dilatation to suggest obstruction. No evidence of adynamic ileus is seen. There is no small bowel wall thickening to suggest enteritis. The colon is unremarkable. The urinary bladder is unremarkable. There is no wall thickening to suggest tumor or inflammation. There are no intraluminal calculi. There are no diverticula. There is no evidence of chronic bladder outlet obstruction. There is no evidence of urinary bladder distention to suggest urinary retention. Means catheter noted in place. The other pelvic structures are unremarkable. The bony and vascular structures are unremarkable for the patient's age. IMPRESSION: Hepatic abscess, less likely hematoma as noted above. This study was performed using dose reduction techniques to include automated exposure control and/or adjustment of the mA and/or kV according to patient size.
--- NOTE | 2025-02-23 14:46 | CONS ---
NEPHROLOGY CONSULTATION NOTE Date/Time Patient Seen: February 23, 2025 Reason for Consultation: Renal failure HISTORY OF PRESENT ILLNESS: This is a is a 74 year old female with a history of AFib, HTN, dyslipidemia, CAD, CHF, and dementia She [place] [facility] [place] from [facility] for the Diagnosis of triple-vessel disease and for evaluation of a CABG. Per chart review the patient presented to [facility] and was found to have leukocytosis, normocytic anemia, hypokalemia, elevated LFTs, elevated troponin, and hypoalbuminemia. The patient is a Jehovah Witness. The patient had an ultrasound of the abdomen which revealed complex hepatic cyst apparently surgery was consulted in the past but patient declined intervention. Other significant finding was dilated common bile duct with sternal echogenic material with posterior shadowing favoring choledocholithiasis. She was noted with elevated BUN/creatinine. We has been consulted for renal failure Renal function remains elevated Electrolytes are noted Pending CT of the abdomen and complete abdominal ultrasound. She was seen in the ICU REVIEW OF SYSTEMS: GENERAL: Negative for any nausea, vomiting, fevers, chills, or weight loss. NEUROLOGIC: Negative for any blurry vision, blind spots, double vision, facial asymmetry, dysphagia, dysarthria, hemiparesis, hemisensory deficits, vertigo, ataxia. HEENT: Negative for any head trauma, neck trauma, neck stiffness, photophobia, phonophobia, sinusitis, rhinitis. CARDIAC: Negative for any chest pain, dyspnea on exertion, paroxysmal nocturnal dyspnea, peripheral edema. PULMONARY: Negative for any shortness of breath, wheezing, COPD, or TB exposure. GASTROINTESTINAL: Negative for any abdominal pain, nausea, vomiting, bright red blood per rectum, melena. GENITOURINARY: Negative for any dysuria, hematuria, incontinence. INTEGUMENTARY: Negative for any rashes, cuts, insect bites. RHEUMATOLOGIC: Negative for any joint pains, photosensitive rashes, history of vasculitis or kidney problems. HEMATOLOGIC: Negative for any abnormal bruising, frequent infections or bleeding. PAST MEDICAL HISTORY: AFib, HTN, dyslipidemia, CAD, CHF, and dementia PAST SURGICAL HISTORY: Noncontributory PAST SOCIAL HISTORY: Denies use of alcohol, tobacco or illicit drugs FAMILY HISTORY: Noncontributory PHYSICAL EXAM: GENERAL: Alert and oriented x 3. No acute distress. Well-nourished. EYES: EOMI. Anicteric. HENT: Moist mucous membranes. No scleral icterus. No cervical lymphadenopathy. LUNGS: Clear to auscultation bilaterally. No accessory muscle use. CARDIOVASCULAR: Regular rate and rhythm. No murmur. No JVD. ABDOMEN: Soft, non-tender and non-distended. No palpable masses. EXTREMITIES: No edema. Non-tender.?SKIN: No rashes or lesions. Warm. NEUROLOGIC: No focal neurological deficits. CN II-XII grossly intact, but not individually tested. PSYCHIATRIC: Cooperative. Appropriate mood and affect. MEDICATIONS: [ ] Current Medications Medications (Trade) Dose Ordered Sig/Nathan Route PRN Reason Start Time Stop Time Status Last Admin Dose Admin Acetaminophen (TYLenol 325MG TAB) 650 mg Q6H PRN PO FEVER/MILD PAIN LEVEL 1-3 02/23/25 00:00 03/25/25 00:00 Acetaminophen (TYLenol 650MG SUPPOSITORY) 650 mg Q6H PRN RC FEVER / MILD PAIN 1-3 IF NPO 02/23/25 00:00 03/25/25 00:00 Atorvastatin Calcium (LIPItor 40MG) 40 mg HS PO 02/23/25 00:15 03/25/25 00:14 Hold 02/23/25 01:51 40 MG Docusate Sodium (COLace 100MG CAP) 100 mg BID PRN PO CONSTIPATION 02/23/25 00:00 03/25/25 00:00 Doxycycline Hyclate 250 ml @ 125 mls/hr Q12H IV 02/23/25 09:30 03/05/25 09:29 02/23/25 10:35 125 MLS/HR Heparin Sodium/ Dextrose 250 ml @ 0 mls/hr PROTOCOL IV 02/23/25 00:30 03/25/25 00:29 02/23/25 01:55 15 MLS/HR Hydromorphone HCl (DiLAUDid 0.5MG INJ) 0.5 mg Q4H PRN IVP SEVERE PAIN (7-10) 02/23/25 12:00 02/28/25 11:59 Insulin Human Regular (humuLIN R 100 UNIT/ML 3ML) INSULIN SLIDING SCAL... ACHS SQ 02/23/25 07:30 03/25/25 07:29 Lactated Ringer's (Lactated Ringers 1000ml) 500 ml ONCE IV 02/23/25 09:30 02/23/25 09:31 DC 02/23/25 09:44 500 ML Lactulose (Constulose 20gm/ 30ml Udcup) 20 gm Q6H PRN PO CONSTIPATION 02/23/25 00:00 03/25/25 00:00 Magnesium Sulfate 50 ml @ 0 mls/hr PROTOCOL PRN IV low magnesium 02/23/25 13:00 03/25/25 12:59 Melatonin (Melatonin) 10 mg HS PO 02/23/25 21:00 03/25/25 20:59 Norepinephrine 250 ml @ 33.509 mls/ hr PROTOCOL IV 02/23/25 05:30 03/25/25 05:29 02/23/25 12:31 33.509 MLS/HR Ondansetron HCl (zoFRAN 4MG INJ) 4 mg Q6H PRN IVP NAUSEA/VOMITING 02/23/25 00:00 03/25/25 00:00 Pantoprazole Sodium (PROTonix 40MG INJ) 40 mg DAILY IVP 02/23/25 13:00 03/25/25 12:59 Piperacillin Sod/ Tazobactam Sod (Zosyn 3.375gm+NS 50ml) 3.375 gm Q12H IV 02/23/25 09:30 03/05/25 09:29 02/23/25 10:35 3.375 GM Potassium Chloride 100 ml @ 100 mls/hr AD PRN IV POTASSIUM PROTOCOL 02/23/25 13:00 03/25/25 12:59 Potassium Chloride 100 ml @ 100 mls/hr AD PRN IV POTASSIUM PROTOCOL 02/23/25 13:00 03/25/25 12:59 Potassium Chloride (K-Dur/Klor-Con 20meq) 10 meq AD PRN PO POTASSIUM PROTOCOL 02/23/25 13:00 03/25/25 12:59 Potassium Chloride (KCl 10% Elixir 20meq/15ml) 10 meq AD PRN PO POTASSIUM PROTOCOL 02/23/25 13:00 03/25/25 12:59 Sodium Bicarbonate (Sodium Bicarbonate) 650 mg BID PO 02/23/25 21:00 03/25/25 20:59 Sodium Chloride 1,000 ml @ 50 mls/hr Q20H IV 02/23/25 09:30 03/25/25 09:29 02/23/25 11:50 50 MLS/HR Temazepam (restORIL 15 MG CAP) 15 mg HS PRN PO INSOMNIA/SLEEP 02/23/25 00:00 03/25/25 00:00 Vital Signs (last 8hr) Date Time Temp Pulse Resp B/P (MAP) Pulse Ox O2 Delivery O2 Flow Rate FiO2 02/23/25 12:31 101/60 02/23/25 10:30 77 20 95 02/23/25 10:30 96 Nasal Cannula* 2 28 02/23/25 10:29 76 15 111/78 (89) 96 02/23/25 10:15 78 14 98 02/23/25 10:14 79 19 118/77 (91) 99 02/23/25 10:00 78 19 129/102 (111) 88 02/23/25 09:30 84 18 111/76 (88) 97 02/23/25 09:15 84 18 111/70 (84) 97 02/23/25 09:00 87 21 110/71 (84) 97 02/23/25 08:45 91 21 79/23 (41) 94 02/23/25 08:30 83 18 102/73 (83) 96 02/23/25 08:15 81 17 96/67 (77) 97 02/23/25 08:00 81 19 89/65 (73) 98 02/23/25 07:45 81 17 97/60 (72) 97 02/23/25 07:30 97.7 80 17 95/59 (71) 95 02/23/25 07:15 79 18 103/66 (78) 98 02/23/25 07:00 84 19 84/60 (68) 97 DIAGNOSTICS / RADIOLOGY: REASON: PICC PLACEMENT ORDERING PHYSICIAN: ANTHONY CHIU PROCEDURE: CXR1VW - CHEST 1VW Exam Type: CHEST 1VW Clinical Information: PICC PLACEMENT Comparison: None Findings: Left PICC line is noted with tip within the mid superior vena cava and there are no other interval changes. IMPRESSION: Left PICC line as noted. DICTATED BY: KIT ALEMAN MD DATE: 02/23/25 1423 REASON: rule out intrabdominal infection ORDERING PHYSICIAN: ANTHONY CHIU PROCEDURE: ABD PEL WO - CT ABDOMEN/PELVIS W/O CONTRAST Exam Type: CT ABDOMEN/PELVIS W/O CONTRAST Clinical Information: rule out intrabdominal infection Comparison: None CT Dose Index (CTDI): 10.20 mGy Dose Length Product (DLP): 530.00 total mGy-cm PROTOCOL: Routine noncontrast helical scanning of the abdomen and pelvis was performed at 5mm collimation. Findings: Please note that this is a noncontrast study but there is residual contrast within the urinary tract, probably from a recent exam. Please correlate with patient's immediate history. The liver is enlarged and there is a complex structure within the right lobe extending into the left lobe, large, centrally located and measuring 16.1 x 14.3 cm. The appearance of the structures that of a developing abscess or a parenchymal hematoma of the liver, less likely. No evidence of nephro or ureterolithiasis is found. No hydronephrosis or ureteral dilatation is seen. The lung bases are clear. The stomach is unremarkable. It shows no wall thickening. No gross ulceration is seen. It is not overly distended. There are no surrounding inflammatory changes. No wall lesions are identified to suggest cancer. The spleen is unremarkable. It is not enlarged. The pancreas shows normal anatomy. It is not fatty replaced. It shows no lesions. The pancreatic duct is not dilated. The gallbladder is surgically absent. The adrenal glands are unremarkable. There is no enlargement. No lesions are noted. The appendix is unremarkable. It shows no evidence of inflammation. No appendicolith is seen. The small bowel is unremarkable. There is no evidence of dilatation to suggest obstruction. No evidence of adynamic ileus is seen. There is no small bowel wall thickening to suggest enteritis. The colon is unremarkable. The urinary bladder is unremarkable. There is no wall thickening to suggest tumor or inflammation. There are no intraluminal calculi. There are no diverticula. There is no evidence of chronic bladder outlet obstruction. There is no evidence of urinary bladder distention to suggest urinary retention. Means catheter noted in place. The other pelvic structures are unremarkable. The bony and vascular structures are unremarkable for the patient's age. IMPRESSION: Hepatic abscess, less likely hematoma as noted above. This study was performed using dose reduction techniques to include automated exposure control and/or adjustment of the mA and/or kV according to patient size. DICTATED BY: KIT ALEMAN MD DATE: 02/23/25 7513 REASON: shortness of breath ORDERING PHYSICIAN: ELVIRA BRYAN BARBER OR [employer] MANAGER PROCEDURE: CXR1VW - CHEST 1VW Exam Type: CHEST 1VW Clinical Information: shortness of breath Comparison: None Findings: The lungs are clear of infiltrates. The heart is enlarged. Bony and soft tissue structures of the chest wall are unremarkable. IMPRESSION: Cardiomegaly. Clear lungs. DICTATED BY: KIT ALEMAN MD DATE: 02/23/25 0903 LABORATORY: [ ] Hematology Labs: Test 02/23/25 10:27 02/23/25 00:33 Range/Units White Blood Count 20.7 H 4.8-10.8 K/uL Red Blood Count 2.76 L 4.00-5.50 MIL/uL Hemoglobin 8.6 L 12.0-16.0 g/dL Hematocrit 25.7 L 36-48 % Mean Corpuscular Volume 93.1 79-99 fL Mean Corpuscular Hemoglobin 31.2 27.0-33.0 pg Mean Corpuscular Hemoglobin Concent 33.5 32.0-36.0 g/dL Red Cell Distribution Width 13.8 11.0-15.5 % Platelet Count 211 130-400 K/uL Mean Platelet Volume 11.3 H 7.5-10.5 fL Immature Granulocyte % (Auto) 1.1 H 0-1 % Neutrophils (%) (Auto) 81.7 H 40.0-77.0 % Lymphocytes (%) (Auto) 9.3 L 21.0-51.0 % Monocytes (%) (Auto) 7.8 3.0-13.0 % Eosinophils (%) (Auto) 0.0 0.0-8.0 % Basophils (%) (Auto) 0.1 0.0-5.0 % Neutrophils # (Auto) 16.9 H 1.8-7.7 K/uL Lymphocytes # (Auto) 1.9 1.0-4.8 K/uL Monocytes # (Auto) 1.6 H 0.1-1.0 K/uL Eosinophils # (Auto) 0.00 0.00-0.70 K/uL Basophils # (Auto) 0.03 0.00-0.20 K/uL Absolute Immature Granulocyte (auto 0.22 0-1 K/uL Nucleated Red Blood Cells 0.1 0.0-0.19 % White Cell Morphology Comment CONSISTENT W/DIFF Chemistry Labs: Test 02/23/25 13:10 02/23/25 11:42 02/23/25 10:27 02/23/25 03:54 Range/Units Lactic Acid Level 2.6 H 0.8-2.5 mmol/L Whole Blood Glucose 147 H 70-110 MG/DL Sodium Level 130 L 136-145 mmol/L Potassium Level 3.8 3.5-5.1 mmol/L Chloride Level 94 L 101-111 mmol/L Carbon Dioxide Level 21 21-32 mmol/L Blood Urea Nitrogen 55 H 7-18 mg/dL Creatinine 3.5 H 0.5-1.0 mg/dL Glomerular Filtration Rate Calc 13 >90 mL/min Random Glucose 149 H 70-105 mg/dL Whole Blood Ketones Quantitative 0.4 0.0-0.6 mmol/L Total Calcium 7.7 L 8.5-10.1 mg/dL Iron Level 102 50-170 mcg/dL Total Iron Binding Capacity 181 L 250-450 mcg/dL Percent Iron Saturation 56.3 H 22-44 % Total Bilirubin 3.1 H 0.2-1.0 mg/dL Aspartate Amino Transf (AST/SGOT) 825 *H 10-37 U/L Alanine Aminotransferase (ALT/SGPT) 702 *H 12-78 U/L Alkaline Phosphatase 484 H 50-136 U/L Ammonia < 10 L 11-32 umol/L Total Creatine Kinase 362 H 21-232 U/L Troponin I High Sensitivity 516.7 *H 4-50 ng/L Total Protein 6.6 6.0-8.3 g/dL Albumin 2.3 L 3.5-5.0 g/dL Lipase 72 16-77 U/L Procalcitonin 5.56 H 0.05-0.5 ng/mL Hemoglobin A1c 5.9 4.0-6.0 % Estimated Average Glucose (eAG) 123 70-126 mg/dL Phosphorus Level 5.9 H 2.5-4.9 mg/dL Magnesium Level 2.20 1.80-2.40 mg/dL Thyroid Stimulating Hormone (TSH) 2.59 0.36-3.74 uIU/mL Test 02/23/25 00:33 Range/Units B-Type Natriuretic Peptide 80 0-100 pg/mL Coagulation Labs: Test 02/23/25 10:27 02/23/25 07:53 Range/Units Prothrombin Time 12.6 H 9.6-11.6 SEC Prothromb Time International Ratio 1.21 H 0.85-1.15 Activated Partial Thromboplast Time > 139.0 #*H 26.3-35.5 SEC ASSESSMENT: Acute renal failure Anemia Possible Septic shock, POA Possible acute ascending cholangitis, POA Triple-vessel disease, POA Non ST-elevation CT type , elevated troponins Paroxysmal atrial fibrillation with RVR Left ventricular systolic function is moderate, per echo on 02/19/2025 Global wall hypokinesis LVEF is 40-45%, per echo on 02/19/2025. Severe diastolic dysfunction (restrictive filling), per echo on 02/19/2025 Mild aortic, mitral, and tricuspid regurgitation, per echo on 02/19/2025. Bradycardia episodes, POA Rhino virus, possibly bronchopneumonia Transaminitis Polycystic liver disease Significant increase in the size of intrahepatic cystic lesions, associated with increased intrahepatic bile duct dilatation, per MRCP on 02/21/2025 Common bile duct dilatation AFib HTN dyslipidemia CAD CHF Dementia PLAN: Labs, diagnostic, radiologic exams reviewed and interpreted by myself and supervising physician. We have reviewed external records in detail Start thiamine 100 mg IV q.day Order acute hepatitis panel Obtain UA, urine electrolytes, urine creatinine, urine osmolality Pending complete abdominal ultrasound Require close monitoring of renal function and electrolytes Order CBC, CMP, uric acid, TSH and electrolytes in am Continue with antibiotics Renal diabetic diet BiPAP as necessary, for respiratory distress IV pressors as needed Monitor blood pressure adjust medication doses as needed Avoid hypotensive episodes May use Dilaudid 0.5 mg IV every 6 hours as needed for severe pain Monitor blood sugars Strict intake, output, and daily weight should be monitored Please renally adjust medications Avoid nephrotoxic and nonsteroidal drugs Avoid contrast if possible Will continue to monitor renal function, anemia, electrolytes Treatment plan discussed with patient Questions were answered We have discussed with the other team physicians in detail about the care plan We will continue to monitor the patient closely Thank you for allowing us to participate in the care of this patient Total critical care time spent with patient, nursing staff, critical care team over 35 minutes ATTESTATION BY PHYSICIAN I have seen and examined the patient. I reviewed the documentation, medical decision making, and treatment plan as noted by the mid-level provider above. I agree with the findings and plan of care. EVGENY SMITH MD, ELIZABETH [employer]BER [employer]GER February 23, 2025 14:46
[2025-02-23] MEDS: SODIUM CHLORIDE 3% FOR INHALATION 4 ML/AMP VIAL.NEB IH ONE ×2 (14:53→23:37)
[2025-02-23 14:57] LABS: HEMATOCRIT 24.5 % (36-48); MEAN CORPUSCULAR HEMOGLOBIN 31.8 pg (27.0-33.0); MEAN CORPUSCULAR HGB CONC 33.5 g/dL (32.0-36.0); NUCLEATED RED BLOOD CELLS 0.2 % (0.0-0.19); RED BLOOD CELL COUNT(AUTO) 2.58 MIL/uL (4.00-5.50); WHITE BLOOD COUNT (AUTO) 21.4 K/uL (4.8-10.8)
[2025-02-23] MEDS: hydroMORPHone 0.5 MG SYG (0.5MG/0.5ML) IVP PRN (15:40)
[2025-02-23] MEDS: PANTOPrazole 40 MG/VIAL IVP SCH (15:52)
[2025-02-23] MEDS ORDERED: ATOR40TA69 PO (17:19)
[2025-02-23] MEDS ORDERED: ESOM40CA66 PO (17:44)
[2025-02-23] MEDS ORDERED: SODI650T PO (17:44)
[2025-02-23] MEDS ORDERED: METO-409 PO (17:44)
[2025-02-23] MEDS ORDERED: FE F1CAP8 PO (17:44)
[2025-02-23] MEDS ORDERED: MEMA5TAB16 PO (17:44)
[2025-02-23] MEDS ORDERED: ALPR-410 PO (17:44)
[2025-02-23] MEDS ORDERED: APIX5TAB PO (17:44)
[2025-02-23] MEDS ORDERED: MECL-226 PO (17:44)
[2025-02-23] MEDS ORDERED: AMIO200T68 PO (17:44)
[2025-02-23] MEDS ORDERED: PHARMACY COMMUNICATION MISC SCH (19:00)
[2025-02-23 20:03] LABS: POTASSIUM 4.1 mmol/L (3.5-5.1)
[2025-02-23] MEDS: SODIUM CHLORIDE FOR INHALATION 3 ML VIAL.NEB. IH ONE (20:13)
[2025-02-23] MEDS: MELATONIN 5 MG TABLET PO SCH (20:57)
[2025-02-23] MEDS: SODIUM BICARBONATE 650 MG TAB PO SCH (20:57)
[2025-02-23] MEDS: NOREPINEPHRINE BITARTRATE 32 MG in 0.9% NACL 250ML 250 ML IV ONE (21:05)
[2025-02-23] MEDS: metRONIDazole 500MG/100ML BAG 100 ML IVPB SCH (22:38)
[2025-02-24] VITALS (66 sets, daily range): BP systolic 75–137; BP diastolic 32–102; PULSE 71–99; RESP 10–83; TEMP 97.2–98.8; O2SAT 92–99
[2025-02-24 04:08] LABS: HEPATITIS B SURFACE ANTIGEN Non-Reactive (Nonreactive)
[2025-02-24 04:09] LABS: HEPATITIS A IGM ANTIBODY Non-Reactive (Nonreactive); HEPATITIS B CORE IGM ANTIBODY Non-Reactive (Negative); HEPATITIS C ANTIBODY Non-Reactive (Nonreactive)
[2025-02-24] MEDS: Vitamin B Complex/Vit C/Folic Acid PO SCH (09:00)
[2025-02-24] MEDS ORDERED: THIAMINE HCL 100 MG/ML 2ML VIAL IM SCH (09:00)
--- NOTE | 2025-02-24 09:13 | HMCIMG ---
Exam Type: US ABDOMINAL COMPLETE Clinical Information: transaminitis, anemia Comparison: None Findings: The liver shows fatty infiltration and is enlarged at 19 cm. There are simple cysts of the liver. In addition, there is a complex cystic lesion, possible abscess, right lobe, 17 x 15 x 15 mm. Doppler evaluation shows patent portal and hepatic veins. The gallbladder is surgically absent. There is intra and extrahepatic bile duct dilatation with a prominent common bile duct measuring 8 mm. Multiple intrahepatic biliary ductal calculi are seen and there are common bile duct calculi as well consistent with choledocholithiasis. In addition, the complex cystic lesion suspicious for an abscess of the right liver lobe appears to be causing extrinsic compression upon the common bile duct and may be contributing to the obstructive changes. The kidneys are normal in size and echogenicity. No hydronephrosis or renal calculi are seen. There are no renal masses. The pancreas is unremarkable. IMPRESSION: Suspected right liver lobe abscess. Common bile duct and intrahepatic bile ductal dilatation with choledocholithiasis. Please see above.
[2025-02-24 09:35] LABS: BASOPHILS # (AUTO) 0.02 K/uL (0.00-0.20); BASOPHILS % (AUTO) 0.1 % (0.0-5.0); IMMATURE GRANULOCYTE ABSOLUTE 0.33 K/uL (0-1); LYMPHOCYTES # (AUTO) 1.4 K/uL (1.0-4.8); LYMPHOCYTES % (AUTO) 6.8 % (21.0-51.0); MEAN CORPUSCULAR HEMOGLOBIN 31.7 pg (27.0-33.0); MEAN CORPUSCULAR HGB CONC 34.1 g/dL (32.0-36.0); MEAN CORPUSCULAR VOLUME 92.8 fL (79-99); MONOCYTES % (AUTO) 4.7 % (3.0-13.0); NEUTROPHILS # (AUTO) 18.3 K/uL (1.8-7.7); NEUTROPHILS % (AUTO) 86.8 % (40.0-77.0); NUCLEATED RED BLOOD CELLS 0.6 % (0.0-0.19); PLATELET COUNT (AUTO) 200 K/uL (130-400); RED BLOOD CELL COUNT(AUTO) 2.21 MIL/uL (4.00-5.50); RED CELL DISTRIBUTION WIDTH 14.1 % (11.0-15.5); WHITE BLOOD COUNT (AUTO) 21.1 K/uL (4.8-10.8)
--- NOTE | 2025-02-24 09:46 | NUR ---
PT AND HER FAMILY REQUESTING THAT BLOOD DRAWS BE LIMITED FOR ONLY IF NECESSARY AND TO COLLECT AMOUNTS IN PEDI TUBES. THEY ALLOWED ME TO COLLECT AM LABS EARLIER. VENOUS BLOOD GAS CANCELLED DR SETHI NOTIFIED OF PT.FAMILY REQUEST.
[2025-02-24 09:53] LABS: HEMATOCRIT 20.5 % (36-48)
[2025-02-24 10:03] LABS: ALBUMIN 2.2 g/dL (3.5-5.0); BILIRUBIN,TOTAL 2.7 mg/dL (0.2-1.0); CREATININE 4.7 mg/dL (0.5-1.0); PHOSPHORUS 6.5 mg/dL (2.5-4.9); POTASSIUM 4.3 mmol/L (3.5-5.1); TOTAL PROTEIN, SERUM 6.2 g/dL (6.0-8.3); URIC ACID 6.8 mg/dL (2.6-7.2)
--- NOTE | 2025-02-24 10:42 | PN ---
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 Bradycardia episodes, POA + Rhino virus POA (Tested + at [facility]) Transaminitis Polycystic liver disease Significant increase in the size of intrahepatic cystic lesions, associated with increased intrahepatic bile duct dilatation, per MRCP on 02/21/2025 Common bile duct dilatation Chronic problem list: AFib, HTN, dyslipidemia, CAD, CHF, dementia Jehovah Witness INTERVAL HISTORY: Pt is awake alert and oriented. She appears pale and fatigue. she is currently on 3 L via NC saturatin 98%. She remains on pressors. Per RN he has not been able to wean currently on Levophed at 0.15 mcg/kg/min and Blood pressure 111/76 with a MAP of 83. White count is trending downslightly WBC 21.1 at this time. HH 7.0/20.5. Neutrophils 86.8. Pt reports she is a Jehova witness and would not accept blood transfusion. Heparin gtt was placed on hold yesterday. Started pt on Iron IV x 3 days and Neprhology has started pt on Retacrit. We will order 1 x dose of vitamin K. due to Liver abscess noted on CT abdomen and pelvis that may have a hemorrhagic component to it. IR was consulted to eval for liver abscess drain and they have recommended no intervention for drain because it is too high risk. For now we will follow ID recommendations and continue IV abx and blood pressure support. Left Picc line has been placed. appears in good position and good to use on chest XR. Dr Garsia has explained to pt the complexity of her clinical findings and multiorgan system involvement. Pt has a poor prognosis. Pt and family have requested for her to remain a full code. Post conversation with Dr Garsia they have agreed to revisit the discussion of goals of care together as a family for the possibility of comfort measures but for now we will continue with current medical management. REVIEW OF SYSTEMS: Const: Yes to fever and fatigue, no weight changes. Eyes:[ no recent vision problems] ENT: [No congestion, ear pain, or sore throat] C/V: [no chest pain, palpitations or edema] Resp: [No cough, congestion, wheezing , or Shortness of breath] GI: Yes to abdominal pain nausea no diarrhea. : [No incontinence of or dyuria] M/S: [No joint or pain swelling] Skin: [No rash] Neuro: [no headache, focal numbness, or weakness, dizziness or seizures] Psych: [no depression or anxiety] Heme: [no abnormal bruising or bleeding] Lymph: [no swollen glands] PHYSICAL EXAM: GENERAL: alert, weak, awake oriented x 3 HEENT: EOMI, Sclera non icteric, moist mucosa NECK: Supple, no JVD, trachea midline LUNGS: Clear breath sounds bilaterally. No wheezes HEART: Regular rate and rhythm. Normal S1 and S2, without murmurs ABD: Abdomen soft, nontender. Bowel sounds present EXT: No clubbing cyanosis or edema NEURO: Alert and oriented to person, follows commands Vital Signs (last 8hr) Date Time Temp Pulse Resp B/P (MAP) Pulse Ox O2 Delivery O2 Flow Rate FiO2 02/24/25 08:00 97.7 89 14 108/62 (77) 98 02/24/25 07:00 84 13 101/64 (76) 100 02/24/25 06:49 88 18 N/Cannula Low lpm 2.0 28 02/24/25 05:59 88 13 93/63 (73) 94 02/24/25 05:44 88 16 111/69 (83) 98 02/24/25 05:29 88 23 104/85 (91) 84 02/24/25 05:14 88 18 118/82 (94) 92 02/24/25 05:00 88 13 116/75 (89) 93 02/24/25 04:44 87 15 106/61 (76) 95 02/24/25 04:29 87 15 115/79 (91) 97 02/24/25 04:14 85 14 79/45 (56) 88 02/24/25 03:59 84 22 87/58 (68) 96 02/24/25 03:52 97.2 LABS: Hematology Labs: Test 02/24/25 08:56 02/23/25 00:33 Range/Units White Blood Count 21.1 H 4.8-10.8 K/uL Red Blood Count 2.21 L 4.00-5.50 MIL/uL Hemoglobin 7.0 *L 12.0-16.0 g/dL Hematocrit 20.5 *L 36-48 % Mean Corpuscular Volume 92.8 79-99 fL Mean Corpuscular Hemoglobin 31.7 27.0-33.0 pg Mean Corpuscular Hemoglobin Concent 34.1 32.0-36.0 g/dL Red Cell Distribution Width 14.1 11.0-15.5 % Platelet Count 200 130-400 K/uL Mean Platelet Volume 11.6 H 7.5-10.5 fL Immature Granulocyte % (Auto) 1.6 H 0-1 % Neutrophils (%) (Auto) 86.8 H 40.0-77.0 % Lymphocytes (%) (Auto) 6.8 L 21.0-51.0 % Monocytes (%) (Auto) 4.7 3.0-13.0 % Eosinophils (%) (Auto) 0.0 0.0-8.0 % Basophils (%) (Auto) 0.1 0.0-5.0 % Neutrophils # (Auto) 18.3 H 1.8-7.7 K/uL Lymphocytes # (Auto) 1.4 1.0-4.8 K/uL Monocytes # (Auto) 1.0 0.1-1.0 K/uL Eosinophils # (Auto) 0.00 0.00-0.70 K/uL Basophils # (Auto) 0.02 0.00-0.20 K/uL Absolute Immature Granulocyte (auto 0.33 0-1 K/uL Nucleated Red Blood Cells 0.6 H 0.0-0.19 % White Cell Morphology Comment CONSISTENT W/DIFF Chemistry Labs: Test 02/24/25 08:56 02/24/25 06:28 02/23/25 10:27 02/23/25 03:54 Range/Units Sodium Level 131 L 136-145 mmol/L Potassium Level 4.3 3.5-5.1 mmol/L Chloride Level 97 L 101-111 mmol/L Carbon Dioxide Level 21 21-32 mmol/L Blood Urea Nitrogen 76 *H 7-18 mg/dL Creatinine 4.7 H 0.5-1.0 mg/dL Glomerular Filtration Rate Calc 9 >90 mL/min Random Glucose 132 H 70-105 mg/dL Lactic Acid Level 2.6 H 0.8-2.5 mmol/L Uric Acid 6.8 2.6-7.2 mg/dL Total Calcium 7.1 L 8.5-10.1 mg/dL Phosphorus Level 6.5 H 2.5-4.9 mg/dL Magnesium Level 2.00 1.80-2.40 mg/dL Total Bilirubin 2.7 H 0.2-1.0 mg/dL Aspartate Amino Transf (AST/SGOT) 1219 *H 10-37 U/L Alanine Aminotransferase (ALT/SGPT) 834 *H 12-78 U/L Alkaline Phosphatase 445 H 50-136 U/L Total Creatine Kinase 398 H 21-232 U/L Troponin I High Sensitivity 643.7 *H 4-50 ng/L Total Protein 6.2 6.0-8.3 g/dL Albumin 2.2 L 3.5-5.0 g/dL Triglycerides Level 59 30-200 mg/dL Cholesterol Level 86 <200 mg/dL LDL Cholesterol 40 0-99 mg/dL HDL Cholesterol 23 L 35-85 mg/dL Whole Blood Glucose 118 H 70-110 MG/DL Whole Blood Ketones Quantitative 0.4 0.0-0.6 mmol/L Iron Level 102 50-170 mcg/dL Total Iron Binding Capacity 181 L 250-450 mcg/dL Percent Iron Saturation 56.3 H 22-44 % Ammonia < 10 L 11-32 umol/L Lipase 72 16-77 U/L Procalcitonin 5.56 H 0.05-0.5 ng/mL Hemoglobin A1c 5.9 4.0-6.0 % Estimated Average Glucose (eAG) 123 70-126 mg/dL Thyroid Stimulating Hormone (TSH) 2.59 0.36-3.74 uIU/mL Test 02/23/25 00:33 Range/Units B-Type Natriuretic Peptide 80 0-100 pg/mL Coagulation Labs: Test 02/23/25 10:27 02/23/25 07:53 Range/Units Prothrombin Time 12.6 H 9.6-11.6 SEC Prothromb Time International Ratio 1.21 H 0.85-1.15 Activated Partial Thromboplast Time > 139.0 #*H 26.3-35.5 SEC DIAGNOSTICS / RADIOLOGY RESULTS: [ ] IMAGING REPORT Signed PATIENT: YVONNE STINSON MR#: [id number] : 1950 SEX: F AGE: 74 LOCATION: 2BH ORDER 1046 STATUS: ADM IN REPORT#: [id number] SERVICE [id number] REASON: hypoxic ORDERING PHYSICIAN: ANTHONY CHIU PROCEDURE: CXR1VW - CHEST 1VW Exam Type: CHEST 1VW Clinical Information: hypoxic Comparison: None Findings: Left PICC line is noted with tip within the mid superior vena cava and there are no other interval changes. IMPRESSION: Left PICC line as noted. DICTATED BY: KIT ALEMAN MD DATE: 02/24/25 1149 ELECTRONICALLY SIGNED BY: KIT ALEMAN MD DATE: 02/24/25 1152 PLAN ICU care Cardiac monitoring Cardiac enzymes BNP follow cardiology recommendations 2D echo done admission [facility] which shows EF of 4 40-45% CV has been consulted pending eval and recommendations AC on hold due to acute anemia Monitor for bleeding Vitamin K x 1 dose Iron IV x 3 days Epogen per neprhology recs PPI for risk of bleeding Glucose goal between 82 180 mg/dL Atorvastatin on hold due to elevated liver enzymes Sodium bicarb 650 mg p.o. b.i.d. Start Zosyn IV q.12 hours Doxycycline 100 mg IV q.12 hours Patient is NPO due to abdominal pain and nausea.-IVF with NS at 50 mL/hour for now. Stop IV fluids once patient tolerates p.o.. Appreciate GI eval and recommendations Follow recs from ID GI to eval no need for ERCP, per GI IR to has deemed pt to high risk for abscess drain intervention NEURO: Minimize central acting medications as possible. Fall Precautions. Well lighted room through the day and minimize interruptions through the night to prevent acute delirium. Patient with underlying history of dementia-melatonin q.h.s. PULMONARY: Supplemental 02 as needed Titrate Fio2 to keep Spo2 > or = 90% DuoNebs and CPT as needed IS hourly while awake for pulmonary hygiene Out of bed to chair as tolerated CXR with no obvious infiltrates CARDIOVASCULAR: Follow hemodynamics. Titrate vasopressor to keep MAP >65 or systolic blood pressure >95mmHg Continuous cardiac monitoring Consult cardiology and follow recommendations Monitor troponin levels Cardiac panel CV surgeon eval and recommendations Drips: Levophed LINES: PIV Pending PICC line GI & NUTRITION: Continue nutritional support Aspirations precautions Prokinetic agents and laxatives as needed NPO due to severe abdominal pain and nausea GI consulted and appreciate recs us abdomen complete per primary team CT abdomen and pelvis to rule out intraabdominal infection KIDNEYS & ELECTROLYTES: Strict monitoring of intake and output Daily weights Avoid nephrotoxic agents Monitor electrolytes and replace as needed Goal urine output of 30mL/hr or 0.5mL/kg/hr potassium half protocol magnesium protocol ENDOCRINE: Maintain blood glucose between 100-180 at all times. Insulin sliding scale for blood glucose management A1C 5.9 at [facility]. TSH normal INFECTIOUS DISEASE: Trend temperature. Doyle-culture if febrile. Micro: [ ] Respiratory Urine Blood cultures covid Influenza a and B swab COVID-19 swab Antibiotics: Zosyn Doxy HEMATOLOGY & COAGULATION: Monitor H&H. Keep Hgb > 7 Transfuse 1 unit of PRBC for Hgb < 7 Transfuse 1 pack of platelets of platelets < 20, 000 Watch for any signs and symptoms of bleeding SKIN: Pressure ulcer prevention per facility protocol Rehab: PT/OT Prophylaxis: GI: Protonix DVT: Patient currently on heparin drip on HOLD due to high risk for bleeding and anemia, SCDS Code Status: Full Resuscitation Disposition: ICU Other: Critical care time This patient required multiple bedside visits to manage the patient, review blood gases, coordinate with respiratory, nurses, talk to [Specialist] review radiology exams, talk to the family members and discuss advanced directives. I personally spent 90 minutes of critical care time in treatment of this patient. This includes patient management, time at bedside, time reviewing tests, labs, appropriate images and studies, documentation, and patient care coordination. This time excludes separately billable procedures. Case was discussed and seen with my supervising physician. The above plan was formulated and agreed upon. ANTHONY CHIU DAIRY FARM MANAGER February 24, 2025 10:42
[2025-02-24] MEDS ORDERED: 0.9% NACL 500ML IV.SOLN 500 ML IV SCH (11:00)
--- NOTE | 2025-02-24 11:20 | NUR ---
CT LIVER ABSCESS DRAIN PLACEMENT CANCELLED IMAGES REVIEWED BY DR Ethan GONSALVES. PER DR GONSALVES H&H CRITICALLY LOW. PER ELIEL RAY PT IS JEHOVAH WITNESS AND DOES NOT ACCEPT BLOOD PRODUCTS. PER DR GONSALVES IMAGES SHOW A HEMATOMA AROUND LIVER. UNSAFE TO PROCEDURE WITH DRAIN PLACEMENT. ELIEL RAY NOTIFIED OF OUTCOME.
[2025-02-24] MEDS: THIAMINE HCL 100 MG/ML 2ML VIAL IV SCH (11:38)
[2025-02-24] MEDS: IRON sUCROse COMPLEX 100 MG/5 ML VIAL IV SCH (11:39)
--- NOTE | 2025-02-24 11:52 | HMCIMG ---
Exam Type: CHEST 1VW Clinical Information: hypoxic Comparison: None Findings: Left PICC line is noted with tip within the mid superior vena cava and there are no other interval changes. IMPRESSION: Left PICC line as noted.
[2025-02-24] MEDS ORDERED: COMPOUND IV REFRIGERATED 1 EACH IVSOLN MISC PRN (12:30)
--- NOTE | 2025-02-24 12:38 | CONS ---
GASTROENTEROLOGY CONSULTATION NOTE Date of Consultation: February 24, 2025 Time of Consultation: 12:38 History of Present Illness: This is a 74-year-old female with past medical history of atrial fibrillation, hypertension, dyslipidemia, CAD, CHF, dementia who presented from [facility] due to triple-vessel disease for evaluation for CABG. She was found to be hypotensive. Troponin elevated as well as LFTs. She is on pressor support in the ICU. MRCP was done at [facility] without evidence of choledocholithiasis. Imaging here with liver abscess. Hemoglobin on admission was 9.5 and today trended down to 7 with a platelet count of 200. There is no overt GI bleeding. Total bilirubin trended down from 3.5 to 2.7. AST 1219, ALT 34 and alkaline phos of 445. Lipase negative. IR consult was placed for drainage of liver abscess however patient was deemed not to be a candidate. Review of Systems: CONSTITUTIONAL: No malaise or change in sensation of wellbeing. ENMT: No rhinorrhea, otorrhea, sinus pain, ear ache. CARDIOVASCULAR: No angina, palpitations, orthopnea or paroxysmal dyspnea. RESPIRATORY: No SOB. GASTROINTESTINAL: No abdominal pain, nausea, vomiting, diarrhea, hematemesis, melena or change in the patient's habitual bowel movements consistency/number. GENITOURINARY: No dysuria, hematuria or change in bladder continence. MUSCULOSKELETAL: No new muscle pain or decrease in muscular strength. No new joint swelling, redness or tenderness. SKIN: No new rash. Past Medical History: [ ] Past Surgical History: [ ] Past Social History: [ ] Family History: [ ] Coded Allergies: No Known Drug Allergies (Unverified Allergy, Unknown, 02/22/25) Physical Exam: GEN: Awake, alert, oriented in person, time and place, and in no acute distress. HEENT: No sinus tenderness. Tympanic membranes were not examined. No rhinorrhea. Oral pharyngeal mucosa is pink, moist and within normal limits. Neck is supple with no cervical lymphadenopathy, thyromegaly or JVD. CHEST: Inspection, palpation and percussion of the chest were unremarkable. Lung auscultation revealed normal breath sounds bilaterally. CARDIAC: PMI is within normal limits. Heart sounds are regular. Normal S1, S2. No gallop or murmur. ABD: Soft, non-tender and not distended. No peritoneal signs on palpation. No organomegaly. Normal bowel sounds. EXT: No cyanosis or clubbing. No edema. SKIN: Intact. No rashes. JOINTS: No evidence of synovitis or acute arthritis. NEURO: Alert and oriented to name, place and person. Cranial nerve examination is unremarkable. No focal motor deficits. Normal speech. Gait is normal. Strength is normal. Vital Sign (Last 24 Hours) 02/24/25 02/24/25 06:49 08:00 Temp 97.7 Pulse 89 Resp 14 B/P (MAP) 108/62 (77) Pulse Ox 98 O2 Delivery N/Cannula Low lpm O2 Flow Rate 2.0 FiO2 28 Intake & Output (last 24hrs) 02/23/25 02/23/25 02/24/25 15:00 23:00 07:00 Intake Total 853.6 ml 1571.9 ml 550.4 ml Output Total 0 ml Balance 853.6 ml 1571.9 ml 550.4 ml Laboratory: [ ] Laboratory: Test 02/24/25 11:24 02/24/25 08:56 02/23/25 12:05 02/23/25 10:27 Range/Units Whole Blood Glucose 115 H 70-110 MG/DL White Blood Count 21.1 H 4.8-10.8 K/uL Red Blood Count 2.21 L 4.00-5.50 MIL/uL Hemoglobin 7.0 *L 12.0-16.0 g/dL Hematocrit 20.5 *L 36-48 % Mean Corpuscular Volume 92.8 79-99 fL Mean Corpuscular Hemoglobin 31.7 27.0-33.0 pg Mean Corpuscular Hemoglobin Concent 34.1 32.0-36.0 g/dL Red Cell Distribution Width 14.1 11.0-15.5 % Platelet Count 200 130-400 K/uL Mean Platelet Volume 11.6 H 7.5-10.5 fL Immature Granulocyte % (Auto) 1.6 H 0-1 % Neutrophils (%) (Auto) 86.8 H 40.0-77.0 % Lymphocytes (%) (Auto) 6.8 L 21.0-51.0 % Monocytes (%) (Auto) 4.7 3.0-13.0 % Eosinophils (%) (Auto) 0.0 0.0-8.0 % Basophils (%) (Auto) 0.1 0.0-5.0 % Neutrophils # (Auto) 18.3 H 1.8-7.7 K/uL Lymphocytes # (Auto) 1.4 1.0-4.8 K/uL Monocytes # (Auto) 1.0 0.1-1.0 K/uL Eosinophils # (Auto) 0.00 0.00-0.70 K/uL Basophils # (Auto) 0.02 0.00-0.20 K/uL Absolute Immature Granulocyte (auto 0.33 0-1 K/uL Nucleated Red Blood Cells 0.6 H 0.0-0.19 % Sodium Level 131 L 136-145 mmol/L Potassium Level 4.3 3.5-5.1 mmol/L Chloride Level 97 L 101-111 mmol/L Carbon Dioxide Level 21 21-32 mmol/L Blood Urea Nitrogen 76 *H 7-18 mg/dL Creatinine 4.7 H 0.5-1.0 mg/dL Glomerular Filtration Rate Calc 9 >90 mL/min Random Glucose 132 H 70-105 mg/dL Lactic Acid Level 2.6 H 0.8-2.5 mmol/L Uric Acid 6.8 2.6-7.2 mg/dL Total Calcium 7.1 L 8.5-10.1 mg/dL Phosphorus Level 6.5 H 2.5-4.9 mg/dL Magnesium Level 2.00 1.80-2.40 mg/dL Total Bilirubin 2.7 H 0.2-1.0 mg/dL Aspartate Amino Transf (AST/SGOT) 1219 *H 10-37 U/L Alanine Aminotransferase (ALT/SGPT) 834 *H 12-78 U/L Alkaline Phosphatase 445 H 50-136 U/L Total Creatine Kinase 398 H 21-232 U/L Troponin I High Sensitivity 643.7 *H 4-50 ng/L Total Protein 6.2 6.0-8.3 g/dL Albumin 2.2 L 3.5-5.0 g/dL Triglycerides Level 59 30-200 mg/dL Cholesterol Level 86 <200 mg/dL LDL Cholesterol 40 0-99 mg/dL HDL Cholesterol 23 L 35-85 mg/dL Hepatitis A IgM Antibody Non-Reactive Nonreactive Hepatitis B Surface Antigen. Non-Reactive Nonreactive Hepatitis B Core IgM Antibody Non-Reactive Negative Hepatitis C Antibody Non-Reactive Nonreactive Prothrombin Time 12.6 H 9.6-11.6 SEC Prothromb Time International Ratio 1.21 H 0.85-1.15 Whole Blood Ketones Quantitative 0.4 0.0-0.6 mmol/L Iron Level 102 50-170 mcg/dL Total Iron Binding Capacity 181 L 250-450 mcg/dL Percent Iron Saturation 56.3 H 22-44 % Ammonia < 10 L 11-32 umol/L Lipase 72 16-77 U/L Procalcitonin 5.56 H 0.05-0.5 ng/mL Monoscreen NEGATIVE NEGATIVE Test 02/23/25 07:53 02/23/25 03:54 02/23/25 00:33 02/23/25 00:32 Range/Units Activated Partial Thromboplast Time > 139.0 #*H 26.3-35.5 SEC Hemoglobin A1c 5.9 4.0-6.0 % Estimated Average Glucose (eAG) 123 70-126 mg/dL Thyroid Stimulating Hormone (TSH) 2.59 0.36-3.74 uIU/mL White Cell Morphology Comment CONSISTENT W/DIFF B-Type Natriuretic Peptide 80 0-100 pg/mL Blood Gas Specimen Type Arterial Arterial Blood pH 7.492 H 7.350-7.450 Arterial Blood Partial Pressure CO2 26 L 32-45 mmHg Arterial Blood Partial Pressure O2 149.8 H 83.0-108.0 mmHg Arterial Blood HCO3 19.7 L 21.0-28.0 mmol/L Arterial Blood Oxygen Saturation 98.4 H 94.0-98.0 % Arterial Blood Base Excess -2.6 L -2.0-3.0 mmol/L Hemoglobin (Blood Gas) 10.3 L 12.0-16.0 g/dL Sodium (Blood Gas) 130 L 136-145 MMOL/L Bedside Potassium (Blood Gas) 3.8 3.4-4.5 MMOL/L Bedside Chloride (Blood Gas) 96 L 98-107 MMOL/L Bedside Glucose (Blood Gas) 156 H 65-95 MG/DL Bedside Ionized Calcium (Blood Gas) 1.05 L 1.15-1.33 MMOL/L Bedside Lactic Acid (Blood Gas) 2.30 H 0.36-0.75 MMOL/L Blood Gas Temperature 37.0 35.5-37.0 CELSIUS Blood Gas Flow-by 2.00 0.00-15.00 L/min Blood Gas Vent Mode 2LNC ROOM AIR FiO2 28.0 % Blood Gas Specimen Comment TERESA RN, RB Current Medications Medications (Trade) Dose Ordered Sig/Nathan Route PRN Reason Start Time Stop Time Status Last Admin Dose Admin Acetaminophen (TYLenol 325MG TAB) 650 mg Q6H PRN PO FEVER/MILD PAIN LEVEL 1-3 02/23/25 00:00 03/25/25 00:00 Acetaminophen (TYLenol 650MG SUPPOSITORY) 650 mg Q6H PRN RC FEVER / MILD PAIN 1-3 IF NPO 02/23/25 00:00 03/25/25 00:00 Atorvastatin Calcium (LIPItor 40MG) 40 mg HS PO 02/23/25 00:15 03/25/25 00:14 Hold 02/23/25 01:51 40 MG Docusate Sodium (COLace 100MG CAP) 100 mg BID PRN PO CONSTIPATION 02/23/25 00:00 03/25/25 00:00 Doxycycline Hyclate 250 ml @ 125 mls/hr Q12H IV 02/23/25 09:30 03/05/25 09:29 02/24/25 08:32 125 MLS/HR Heparin Sodium/ Dextrose 250 ml @ 0 mls/hr PROTOCOL IV 02/23/25 00:30 03/25/25 00:29 Hold 02/23/25 01:55 15 MLS/HR Hydromorphone HCl (DiLAUDid 0.5MG INJ) 0.5 mg Q4H PRN IVP SEVERE PAIN (7-10) 02/23/25 12:00 02/28/25 11:59 02/24/25 10:14 0.5 MG Insulin Human Regular (humuLIN R 100 UNIT/ML 3ML) INSULIN SLIDING SCAL... ACHS SQ 02/23/25 07:30 03/25/25 07:29 Ipratropium [place] (AtrovENT UD) 0.5 MG [id number] IH 02/24/25 14:00 03/26/25 13:59 Iron Sucrose (VenoFER) 200 mg Q24H IV 02/24/25 11:00 02/27/25 10:59 02/24/25 11:39 200 MG Lactated Ringer's (Lactated Ringers 1000ml) 500 ml ONCE IV 02/23/25 09:30 02/23/25 09:31 DC 02/23/25 09:44 500 ML Lactulose (Constulose 20gm/ 30ml Udcup) 20 gm Q6H PRN PO CONSTIPATION 02/23/25 00:00 03/25/25 00:00 Magnesium Sulfate 50 ml @ 0 mls/hr PROTOCOL PRN IV low magnesium 02/23/25 13:00 03/25/25 12:59 Melatonin (Melatonin) 10 mg HS PO 02/23/25 21:00 03/25/25 20:59 02/23/25 20:57 10 MG Metronidazole/ Sodium Chloride 100 ml @ 100 mls/hr Q8H6 IVPB 02/23/25 22:00 03/05/25 21:59 02/24/25 06:08 100 MLS/HR Norepinephrine 250 ml @ 33.509 mls/ hr PROTOCOL IV 02/23/25 05:30 03/25/25 05:29 02/23/25 12:31 33.509 MLS/HR Ondansetron HCl (zoFRAN 4MG INJ) 4 mg Q6H PRN IVP NAUSEA/VOMITING 02/23/25 00:00 03/25/25 00:00 Pantoprazole Sodium (PROTonix 40MG INJ) 40 mg BID IVP 02/24/25 21:00 03/25/25 12:59 Pantoprazole Sodium (PROTonix 40MG INJ) 40 mg DAILY IVP 02/23/25 13:00 02/24/25 10:44 DC 02/24/25 10:18 40 MG Pharmacy Profile Note (Pharmacy Communication) 1 each ONCE MISC 02/23/25 19:00 02/23/25 19:16 DC Piperacillin Sod/ Tazobactam Sod (Zosyn 3.375gm+NS 50ml) 3.375 gm Q12H IV 02/23/25 09:30 03/05/25 09:29 02/24/25 10:18 3.375 GM Potassium Chloride 100 ml @ 100 mls/hr AD PRN IV POTASSIUM PROTOCOL 02/23/25 13:00 03/25/25 12:59 Potassium Chloride 100 ml @ 100 mls/hr AD PRN IV POTASSIUM PROTOCOL 02/23/25 13:00 03/25/25 12:59 Potassium Chloride (K-Dur/Klor-Con 20meq) 10 meq AD PRN PO POTASSIUM PROTOCOL 02/23/25 13:00 6/7/25 12:59 Potassium Chloride (KCl 10% Elixir 20meq/15ml) 10 meq AD PRN PO POTASSIUM PROTOCOL 02/23/25 13:00 03/25/25 12:59 Sodium Bicarbonate (Sodium Bicarbonate) 650 mg BID PO 02/23/25 21:00 03/25/25 20:59 02/23/25 20:57 650 MG Sodium Chloride 500 ml @ 0 mls/hr Q0M IV 02/24/25 11:00 03/26/25 10:59 Sodium Chloride 1,000 ml @ 50 mls/hr Q20H IV 02/23/25 09:30 02/24/25 10:40 DC 02/24/25 08:33 50 MLS/HR Temazepam (restORIL 15 MG CAP) 15 mg HS PRN PO INSOMNIA/SLEEP 02/23/25 00:00 03/25/25 00:00 Thiamine HCl (Vitamin B-1) 100 mg DAILY IM 02/24/25 09:00 02/24/25 10:22 DC Thiamine HCl (Vitamin B-1) 100 mg DAILY IV 02/24/25 10:30 03/26/25 10:29 02/24/25 11:38 100 MG Vitamin B Complex/ Vit C/Folic Acid (Nephrovite Tablet) 1 cap DAILY PO 02/24/25 09:00 03/26/25 08:59 Diagnostics / Radiology: [COPY/PASTE HERE IF NO REPORTS PLEASE DELETE SECTION] Assessment: Abnormal LFTs Liver abscess CAD Plan: Case discussed with Dr. Garcia ERCP not warranted given no evidence of choledocholithiasis on MRCP Continue antibiotics and ID recs for liver abscess Trend LFTs, likely shock liver from hemodynamic instability MICHELL KNIGHT SQL SS[employer] DEVELOPER February 24, 2025 12:38
--- NOTE | 2025-02-24 12:58 | PN ---
[facility] PROGRESS NOTE Date of Service: February 24, 2025 Time of Service: 12:53 SUBJECTIVE: [ ] Ms. Rodriguez is a 74 year old female with a history of AFib, HTN, dyslipidemia, CAD, CHF, and dementia who [place] [facility] [place] [facility] for the Diagnosis of triple-vessel disease and for evaluation of a CABG. The patient was seen by me on arrival to [facility]. RN reports that on arrival patient's blood pressure was 82/44, heart rate 81, map 62, 98% on room air. He reports the patient was clammy and diaphoretic. EKG was done which showed sinus rhythm, PACs, L BBB, ST-elevation secondary to IVCD. Per chart review the patient presented to [facility] and was found to have leukocytosis, normocytic anemia, hypokalemia, elevated LFTs, elevated troponin, and hypoalbuminemia. The patient is a Jehovah Witness. The patient had an ultrasound of the abdomen which revealed complex hepatic cyst apparently surgery was consulted in the past but patient declined intervention. Other significant finding was dilated common bile duct with sternal echogenic material with posterior shadowing favoring choledocholithiasis. The patient was transferred on Levophed to ICU and was started on heparin drip. 02/23 patient is seen and evaluated earlier this morning at bedside, patient alert and oriented x3, on supplemental oxygen via nasal cannula at 2 L, saturating 98%, she remains on heparin drip and Levophed. Denies chest pain, denied shortness a breath. Chest x-ray reviewed, cardiomegaly with clear lungs. Patient noted to have leukocytosis, with WBC 9.4, hemoglobin stable at 9.6. The patient 3.1. Daughter is at bedside during my visit, updated. 02/24 patient is seen and examined at bedside, remains on Levophed for blood pressure support, BP 108/62, afebrile, saturating 98% 2 L nasal cannula. Patient getting broad-spectrum IV antibiotics. Son is at the bedside during my visit. Ultrasound of the abdomen as well as CT of the abdomen suspected right liver lobe abscess, common bile duct and intrahepatic bile duct dilatation with choledocholithiasis is present. Discussed findings with both the patient and the son at bedside, all questions answered. Understood all the information provided. Patient hemoglobin today 7.0, hematocrit 20.5, persistent leukocytosis at 21.1. REVIEW OF SYSTEMS 12-point ROS reviewed. All pertinent positives mentioned above. Otherwise negative, noncontributory, non-pertinent. PHYSICAL EXAM GENERAL APPEARANCE: The patient is awake, alert, and oriented, in no acute cardiopulmonary distress. Appears weak, diaphoretic. NEUROLOGICAL: Cranial nerves II-XII grossly intact. Motor is 5/5 in bilateral upper and lower extremities proximal to distal. No sensory deficits. HEENT: Face is symmetric. Pupils are equal and reactive. Extraocular movements are intact. NECK: Supple. No JVD. No thyromegaly. No submental, submandibular, pre-/postauricular, occipital or supraclavicular lymphadenopathy. CHEST: Normal chest expansion. No Telemetry. LUNGS: Absence of any rales, rhonchi or any wheezing. CARDIOVASCULAR: Regular. S1 and S2 normal. No appreciable rubs, murmurs or gallops. ABDOMEN: Soft, nontender, and nondistended. There is no rebound, voluntary guarding, or rigidity. : Deferred. No Means. EXTREMITIES: Non-edematous and not cyanotic. No clubbing. Good capillary refill. SKIN: No skin breakdown. Vital Signs (last 8hr) Date Time Temp Pulse Resp B/P (MAP) Pulse Ox O2 Delivery O2 Flow Rate FiO2 02/24/25 08:00 97.7 89 14 108/62 (77) 98 02/24/25 07:00 84 13 101/64 (76) 100 02/24/25 06:49 88 18 N/Cannula Low lpm 2.0 28 02/24/25 05:59 88 13 93/63 (73) 94 02/24/25 05:44 88 16 111/69 (83) 98 02/24/25 05:29 88 23 104/85 (91) 84 02/24/25 05:14 88 18 118/82 (94) 92 02/24/25 05:00 88 13 116/75 (89) 93 LABS: Laboratory: Test 02/24/25 11:24 02/24/25 08:56 02/23/25 12:05 02/23/25 10:27 Range/Units Whole Blood Glucose 115 H 70-110 MG/DL White Blood Count 21.1 H 4.8-10.8 K/uL Red Blood Count 2.21 L 4.00-5.50 MIL/uL Hemoglobin 7.0 *L 12.0-16.0 g/dL Hematocrit 20.5 *L 36-48 % Mean Corpuscular Volume 92.8 79-99 fL Mean Corpuscular Hemoglobin 31.7 27.0-33.0 pg Mean Corpuscular Hemoglobin Concent 34.1 32.0-36.0 g/dL Red Cell Distribution Width 14.1 11.0-15.5 % Platelet Count 200 130-400 K/uL Mean Platelet Volume 11.6 H 7.5-10.5 fL Immature Granulocyte % (Auto) 1.6 H 0-1 % Neutrophils (%) (Auto) 86.8 H 40.0-77.0 % Lymphocytes (%) (Auto) 6.8 L 21.0-51.0 % Monocytes (%) (Auto) 4.7 3.0-13.0 % Eosinophils (%) (Auto) 0.0 0.0-8.0 % Basophils (%) (Auto) 0.1 0.0-5.0 % Neutrophils # (Auto) 18.3 H 1.8-7.7 K/uL Lymphocytes # (Auto) 1.4 1.0-4.8 K/uL Monocytes # (Auto) 1.0 0.1-1.0 K/uL Eosinophils # (Auto) 0.00 0.00-0.70 K/uL Basophils # (Auto) 0.02 0.00-0.20 K/uL Absolute Immature Granulocyte (auto 0.33 0-1 K/uL Nucleated Red Blood Cells 0.6 H 0.0-0.19 % Sodium Level 131 L 136-145 mmol/L Potassium Level 4.3 3.5-5.1 mmol/L Chloride Level 97 L 101-111 mmol/L Carbon Dioxide Level 21 21-32 mmol/L Blood Urea Nitrogen 76 *H 7-18 mg/dL Creatinine 4.7 H 0.5-1.0 mg/dL Glomerular Filtration Rate Calc 9 >90 mL/min Random Glucose 132 H 70-105 mg/dL Lactic Acid Level 2.6 H 0.8-2.5 mmol/L Uric Acid 6.8 2.6-7.2 mg/dL Total Calcium 7.1 L 8.5-10.1 mg/dL Phosphorus Level 6.5 H 2.5-4.9 mg/dL Magnesium Level 2.00 1.80-2.40 mg/dL Total Bilirubin 2.7 H 0.2-1.0 mg/dL Aspartate Amino Transf (AST/SGOT) 1219 *H 10-37 U/L Alanine Aminotransferase (ALT/SGPT) 834 *H 12-78 U/L Alkaline Phosphatase 445 H 50-136 U/L Total Creatine Kinase 398 H 21-232 U/L Troponin I High Sensitivity 643.7 *H 4-50 ng/L Total Protein 6.2 6.0-8.3 g/dL Albumin 2.2 L 3.5-5.0 g/dL Triglycerides Level 59 30-200 mg/dL Cholesterol Level 86 <200 mg/dL LDL Cholesterol 40 0-99 mg/dL HDL Cholesterol 23 L 35-85 mg/dL Hepatitis A IgM Antibody Non-Reactive Nonreactive Hepatitis B Surface Antigen. Non-Reactive Nonreactive Hepatitis B Core IgM Antibody Non-Reactive Negative Hepatitis C Antibody Non-Reactive Nonreactive Prothrombin Time 12.6 H 9.6-11.6 SEC Prothromb Time International Ratio 1.21 H 0.85-1.15 Whole Blood Ketones Quantitative 0.4 0.0-0.6 mmol/L Iron Level 102 50-170 mcg/dL Total Iron Binding Capacity 181 L 250-450 mcg/dL Percent Iron Saturation 56.3 H 22-44 % Ammonia < 10 L 11-32 umol/L Lipase 72 16-77 U/L Procalcitonin 5.56 H 0.05-0.5 ng/mL Monoscreen NEGATIVE NEGATIVE Test 02/23/25 07:53 02/23/25 03:54 02/23/25 00:33 02/23/25 00:32 Range/Units Activated Partial Thromboplast Time > 139.0 #*H 26.3-35.5 SEC Hemoglobin A1c 5.9 4.0-6.0 % Estimated Average Glucose (eAG) 123 70-126 mg/dL Thyroid Stimulating Hormone (TSH) 2.59 0.36-3.74 uIU/mL White Cell Morphology Comment CONSISTENT W/DIFF B-Type Natriuretic Peptide 80 0-100 pg/mL Blood Gas Specimen Type Arterial Arterial Blood pH 7.492 H 7.350-7.450 Arterial Blood Partial Pressure CO2 26 L 32-45 mmHg Arterial Blood Partial Pressure O2 149.8 H 83.0-108.0 mmHg Arterial Blood HCO3 19.7 L 21.0-28.0 mmol/L Arterial Blood Oxygen Saturation 98.4 H 94.0-98.0 % Arterial Blood Base Excess -2.6 L -2.0-3.0 mmol/L Hemoglobin (Blood Gas) 10.3 L 12.0-16.0 g/dL Sodium (Blood Gas) 130 L 136-145 MMOL/L Bedside Potassium (Blood Gas) 3.8 3.4-4.5 MMOL/L Bedside Chloride (Blood Gas) 96 L 98-107 MMOL/L Bedside Glucose (Blood Gas) 156 H 65-95 MG/DL Bedside Ionized Calcium (Blood Gas) 1.05 L 1.15-1.33 MMOL/L Bedside Lactic Acid (Blood Gas) 2.30 H 0.36-0.75 MMOL/L Blood Gas Temperature 37.0 35.5-37.0 CELSIUS Blood Gas Flow-by 2.00 0.00-15.00 L/min Blood Gas Vent Mode 2LNC ROOM AIR FiO2 28.0 % Blood Gas Specimen Comment TERESA RN, RB Current Medications Medications (Trade) Dose Ordered Sig/Nathan Route PRN Reason Start Time Stop Time Status Last Admin Dose Admin Acetaminophen (TYLenol 325MG TAB) 650 mg Q6H PRN PO FEVER/MILD PAIN LEVEL 1-3 02/23/25 00:00 03/25/25 00:00 Acetaminophen (TYLenol 650MG SUPPOSITORY) 650 mg Q6H PRN RC FEVER / MILD PAIN 1-3 IF NPO 02/23/25 00:00 03/25/25 00:00 Atorvastatin Calcium (LIPItor 40MG) 40 mg HS PO 02/23/25 00:15 03/25/25 00:14 Hold 02/23/25 01:51 40 MG Docusate Sodium (COLace 100MG CAP) 100 mg BID PRN PO CONSTIPATION 02/23/25 00:00 03/25/25 00:00 Doxycycline Hyclate 250 ml @ 125 mls/hr Q12H IV 02/23/25 09:30 03/05/25 09:29 02/24/25 08:32 125 MLS/HR Heparin Sodium/ Dextrose 250 ml @ 0 mls/hr PROTOCOL IV 02/23/25 00:30 03/25/25 00:29 Hold 02/23/25 01:55 15 MLS/HR Hydromorphone HCl (DiLAUDid 0.5MG INJ) 0.5 mg Q4H PRN IVP SEVERE PAIN (7-10) 02/23/25 12:00 02/28/25 11:59 02/24/25 10:14 0.5 MG Insulin Human Regular (humuLIN R 100 UNIT/ML 3ML) INSULIN SLIDING SCAL... ACHS SQ 02/23/25 07:30 03/25/25 07:29 Ipratropium [place] (AtrovENT UD) 0.5 MG [id number] IH 02/24/25 14:00 03/26/25 13:59 Iron Sucrose (VenoFER) 200 mg Q24H IV 02/24/25 11:00 02/27/25 10:59 02/24/25 11:39 200 MG Lactated Ringer's (Lactated Ringers 1000ml) 500 ml ONCE IV 02/23/25 09:30 02/23/25 09:31 DC 02/23/25 09:44 500 ML Lactulose (Constulose 20gm/ 30ml Udcup) 20 gm Q6H PRN PO CONSTIPATION 02/23/25 00:00 03/25/25 00:00 Magnesium Sulfate 50 ml @ 0 mls/hr PROTOCOL PRN IV low magnesium 02/23/25 13:00 03/25/25 12:59 Melatonin (Melatonin) 10 mg HS PO 02/23/25 21:00 03/25/25 20:59 02/23/25 20:57 10 MG Metronidazole/ Sodium Chloride 100 ml @ 100 mls/hr Q8H6 IVPB 02/23/25 22:00 03/05/25 21:59 02/24/25 06:08 100 MLS/HR Norepinephrine 250 ml @ 33.509 mls/ hr PROTOCOL IV 02/23/25 05:30 03/25/25 05:29 02/23/25 12:31 33.509 MLS/HR Ondansetron HCl (zoFRAN 4MG INJ) 4 mg Q6H PRN IVP NAUSEA/VOMITING 02/23/25 00:00 03/25/25 00:00 Pantoprazole Sodium (PROTonix 40MG INJ) 40 mg BID IVP 02/24/25 21:00 03/25/25 12:59 Pantoprazole Sodium (PROTonix 40MG INJ) 40 mg DAILY IVP 02/23/25 13:00 02/24/25 10:44 DC 02/24/25 10:18 40 MG Pharmacy Profile Note (Pharmacy Communication) 1 each ONCE MISC 02/23/25 19:00 02/23/25 19:16 DC Piperacillin Sod/ Tazobactam Sod (Zosyn 3.375gm+NS 50ml) 3.375 gm Q12H IV 02/23/25 09:30 03/05/25 09:29 02/24/25 10:18 3.375 GM Potassium Chloride 100 ml @ 100 mls/hr AD PRN IV POTASSIUM PROTOCOL 02/23/25 13:00 03/25/25 12:59 Potassium Chloride 100 ml @ 100 mls/hr AD PRN IV POTASSIUM PROTOCOL 02/23/25 13:00 03/25/25 12:59 Potassium Chloride (K-Dur/Klor-Con 20meq) 10 meq AD PRN PO POTASSIUM PROTOCOL 02/23/25 13:00 03/25/25 12:59 Potassium Chloride (KCl 10% Elixir 20meq/15ml) 10 meq AD PRN PO POTASSIUM PROTOCOL 02/23/25 13:00 03/25/25 12:59 Sodium Bicarbonate (Sodium Bicarbonate) 650 mg BID PO 02/23/25 21:00 03/25/25 20:59 02/23/25 20:57 650 MG Sodium Chloride 500 ml @ 0 mls/hr Q0M IV 02/24/25 11:00 03/26/25 10:59 Sodium Chloride 1,000 ml @ 50 mls/hr Q20H IV 02/23/25 09:30 02/24/25 10:40 DC 02/24/25 08:33 50 MLS/HR Temazepam (restORIL 15 MG CAP) 15 mg HS PRN PO INSOMNIA/SLEEP 02/23/25 00:00 03/25/25 00:00 Thiamine HCl (Vitamin B-1) 100 mg DAILY IM 02/24/25 09:00 02/24/25 10:22 DC Thiamine HCl (Vitamin B-1) 100 mg DAILY IV 02/24/25 10:30 03/26/25 10:29 02/24/25 11:38 100 MG Vitamin B Complex/ Vit C/Folic Acid (Nephrovite Tablet) 1 cap DAILY PO 02/24/25 09:00 03/26/25 08:59 DIAGNOSTICS / RADIOLOGY: [ ] Exam Type: US ABDOMINAL COMPLETE Clinical Information: transaminitis, anemia Comparison: None Findings: The liver shows fatty infiltration and is enlarged at 19 cm. There are simple cysts of the liver. In addition, there is a complex cystic lesion, possible abscess, right lobe, 17 x 15 x 15 mm. Doppler evaluation shows patent portal and hepatic veins. The gallbladder is surgically absent. There is intra and extrahepatic bile duct dilatation with a prominent common bile duct measuring 8 mm. Multiple intrahepatic biliary ductal calculi are seen and there are common bile duct calculi as well consistent with choledocholithiasis. In addition, the complex cystic lesion suspicious for an abscess of the right liver lobe appears to be causing extrinsic compression upon the common bile duct and may be contributing to the obstructive changes. The kidneys are normal in size and echogenicity. No hydronephrosis or renal calculi are seen. There are no renal masses. The pancreas is unremarkable. IMPRESSION: Suspected right liver lobe abscess. Common bile duct and intrahepatic bile ductal dilatation with choledocholithiasis. Please see above. ASSESSMENT: Septic shock, POA Acute ascending cholangitis, POA Suspected right liver lobe abscess, POA Common bile duct dilatation, POA Intrahepatic bile duct dilatation with choledocholithiasis, POA CAD with a Triple-vessel disease, POA Non ST-elevation [place] type , elevated troponins Paroxysmal atrial fibrillation with RVR Left ventricular systolic function is moderate, per echo on 02/19/2025 Global wall hypokinesis LVEF is 40-45%, per echo on 02/19/2025. Severe diastolic dysfunction (restrictive filling), per echo on 02/19/2025 Mild aortic, mitral, and tricuspid regurgitation, per echo on 02/19/2025. Bradycardia episodes, POA Rhino virus, possibly bronchopneumonia Transaminitis possible shock liver Polycystic liver disease Significant increase in the size of intrahepatic cystic lesions, associated with increased intrahepatic bile duct dilatation, per MRCP on 02/21/2025 Common bile duct dilatation Chronic problem list: AFib, HTN, dyslipidemia, CAD, CHF, dementia Jehovah Witness Anemia of chronic disease PLAN: Patient remains admitted to the ICU Continue the patient on supplemental oxygen via nasal cannula at 2 L to keep oxygen saturation greater than 94% Continue the patient on Levophed, wean as tolerated Critical care consultation requested, case discussed Cardiothoracic surgery consultation requested, we will follow input and recommendation The patient with transaminitis, per chart review, admission [facility], The patient had an ultrasound of the abdomen which revealed complex hepatic cyst apparently surgery was consulted in the past but patient declined intervention. Other significant finding was dilated common bile duct with sternal echogenic material with posterior shadowing favoring choledocho lithiasis. CT of the abdomen as well as repeat liver ultrasound done [place] [facility] [place] right liver low abscess, common bile duct and intrahepatic bile ductal dilatation with choledocholithiasis. The patient with persistent leukocytosis. Liver enzymes progressively getting worse, total bilirubin 2.7 Continue the patient on broad-spectrum IV antibiotics with Flagyl, Zosyn IV and doxycycline IV. Infectious Disease consultation requested, we will follow input and recommendation. Follow results of septic workup May benefit from IR consultation for possible liver abscess aspiration Continue to monitor liver enzymes in a.m. Follow anemia workup, hemoglobin worse today. GI consultation requested, follow input and recommendation. The patient is Jehovah Witness Prognosis of this patient is guarded. NEURO: Minimize central acting medications as possible. Fall Precautions. Well lighted room through the day and minimize interruptions through the night to prevent acute delirium. PULMONARY: Supplemental 02 as needed BiPAP as necessary, for respiratory distress Titrate Fio2 to keep Spo2 > or = 90% DuoNebs and CPT as needed IS hourly while awake for pulmonary hygiene prn Out of bed to chair as tolerated Maintain aspiration precautions at all times CARDIOVASCULAR: Follow hemodynamics. Vital signs per facility protocol GI & NUTRITION: Continue nutritional support Aspirations precautions Prokinetic agents and laxatives as needed KIDNEYS & ELECTROLYTES: Strict monitoring of intake and output Daily weights Avoid nephrotoxic agents Monitor electrolytes and replace as needed Goal urine output of 30mL/hr or 0.5mL/kg/hr Medications to be dosed according to renal function. Avoid contrast if possible ENDOCRINE: Maintain blood glucose between 100-180 at all times. Insulin sliding scale for blood glucose management Hypoglycemia and hyperglycemia protocol in place INFECTIOUS DISEASE: Trend temperature, WBC and procalcitonin level Follow cultures, deescalate antibiotics as soon as possible. Panculture if new onset fever HEMATOLOGY & COAGULATION: Monitor H&H. Keep Hgb > 7 Transfuse 1 unit of PRBC for Hgb < 7 Transfuse 1 pack of platelets of platelets < 20, 000 Watch for any signs and symptoms of bleeding SKIN: Pressure ulcer prevention per facility protocol Specialty mattress as needed ORTHO/REHAB Continue PT/OT PRN: MEDICATIONS Tylenol 650 mg po every 4 hrs for fever zofran 4 mg IV every 6 hrs for n/v Hydralazine 5 mg IV every 4 hrs systolic pressure > 160 bowel regiment: lactulose 20 gm PO BID PRN constipation Supportive measures: Continue GI and DVT prophylaxis Disposition: Pending improvement in clinical condition All questions answered time spent: > 35 min FRANCIA SETHI MD February 24, 2025 12:58
--- NOTE | 2025-02-24 14:10 | PN ---
NEPHROLOGY PROGRESS NOTE Date/Time Patient Seen: February 24, 2025 SUBJECTIVE: This is a 74 year old female with a history of AFib, HTN, dyslipidemia, CAD, CHF, and dementia She presented to [facility] as a transfer from [facility] for the Diagnosis of triple-vessel disease and for evaluation of a CABG. Per chart review the patient presented to [facility] and was found to have leukocytosis, normocytic anemia, hypokalemia, elevated LFTs, elevated troponin, and hypoalbuminemia. The patient is a Jehovah Witness. The patient had an ultrasound of the abdomen which revealed complex hepatic cyst apparently surgery was consulted in the past but patient declined intervention. Other significant finding was dilated common bile duct with sternal echogenic material with posterior shadowing favoring choledocholithiasis. She was noted with elevated BUN/creatinine. We has been consulted for renal failure Renal function remains elevated Electrolytes are noted Hemoglobin and iron panel was noted. She has been started on IV Iron She was seen in the ICU REVIEW OF SYSTEMS: GENERAL: Negative for any nausea, vomiting, fevers, chills, or weight loss. NEUROLOGIC: Negative for any blurry vision, blind spots, double vision, facial asymmetry, dysphagia, dysarthria, hemiparesis, hemisensory deficits, vertigo, ataxia. HEENT: Negative for any head trauma, neck trauma, neck stiffness, photophobia, phonophobia, sinusitis, rhinitis. CARDIAC: Negative for any chest pain, dyspnea on exertion, paroxysmal nocturnal dyspnea, peripheral edema. PULMONARY: Negative for any shortness of breath, wheezing, COPD, or TB exposure. GASTROINTESTINAL: Negative for any abdominal pain, nausea, vomiting, bright red blood per rectum, melena. GENITOURINARY: Negative for any dysuria, hematuria, incontinence. INTEGUMENTARY: Negative for any rashes, cuts, insect bites. RHEUMATOLOGIC: Negative for any joint pains, photosensitive rashes, history of vasculitis or kidney problems. HEMATOLOGIC: Negative for any abnormal bruising, frequent infections or bleeding. PHYSICAL EXAM: GENERAL: Alert and oriented x 3. No acute distress. Well-nourished. EYES: EOMI. Anicteric. HENT: Moist mucous membranes. No scleral icterus. No cervical lymphadenopathy. LUNGS: Clear to auscultation bilaterally. No accessory muscle use. CARDIOVASCULAR: Regular rate and rhythm. No murmur. No JVD. ABDOMEN: Soft, non-tender and non-distended. No palpable masses. EXTREMITIES: No edema. Non-tender.?SKIN: No rashes or lesions. Warm. NEUROLOGIC: No focal neurological deficits. CN II-XII grossly intact, but not individually tested. PSYCHIATRIC: Cooperative. Appropriate mood and affect. LABORATORY: [ ] Hematology Labs: Test 02/24/25 08:56 02/23/25 00:33 Range/Units White Blood Count 21.1 H 4.8-10.8 K/uL Red Blood Count 2.21 L 4.00-5.50 MIL/uL Hemoglobin 7.0 *L 12.0-16.0 g/dL Hematocrit 20.5 *L 36-48 % Mean Corpuscular Volume 92.8 79-99 fL Mean Corpuscular Hemoglobin 31.7 27.0-33.0 pg Mean Corpuscular Hemoglobin Concent 34.1 32.0-36.0 g/dL Red Cell Distribution Width 14.1 11.0-15.5 % Platelet Count 200 130-400 K/uL Mean Platelet Volume 11.6 H 7.5-10.5 fL Immature Granulocyte % (Auto) 1.6 H 0-1 % Neutrophils (%) (Auto) 86.8 H 40.0-77.0 % Lymphocytes (%) (Auto) 6.8 L 21.0-51.0 % Monocytes (%) (Auto) 4.7 3.0-13.0 % Eosinophils (%) (Auto) 0.0 0.0-8.0 % Basophils (%) (Auto) 0.1 0.0-5.0 % Neutrophils # (Auto) 18.3 H 1.8-7.7 K/uL Lymphocytes # (Auto) 1.4 1.0-4.8 K/uL Monocytes # (Auto) 1.0 0.1-1.0 K/uL Eosinophils # (Auto) 0.00 0.00-0.70 K/uL Basophils # (Auto) 0.02 0.00-0.20 K/uL Absolute Immature Granulocyte (auto 0.33 0-1 K/uL Nucleated Red Blood Cells 0.6 H 0.0-0.19 % White Cell Morphology Comment CONSISTENT W/DIFF Chemistry Labs: Test 02/24/25 11:24 5/9/25 08:56 02/23/25 10:27 02/23/25 03:54 Range/Units Whole Blood Glucose 115 H 70-110 MG/DL Sodium Level 131 L 136-145 mmol/L Potassium Level 4.3 3.5-5.1 mmol/L Chloride Level 97 L 101-111 mmol/L Carbon Dioxide Level 21 21-32 mmol/L Blood Urea Nitrogen 76 *H 7-18 mg/dL Creatinine 4.7 H 0.5-1.0 mg/dL Glomerular Filtration Rate Calc 9 >90 mL/min Random Glucose 132 H 70-105 mg/dL Lactic Acid Level 2.6 H 0.8-2.5 mmol/L Uric Acid 6.8 2.6-7.2 mg/dL Total Calcium 7.1 L 8.5-10.1 mg/dL Phosphorus Level 6.5 H 2.5-4.9 mg/dL Magnesium Level 2.00 1.80-2.40 mg/dL Total Bilirubin 2.7 H 0.2-1.0 mg/dL Aspartate Amino Transf (AST/SGOT) 1219 *H 10-37 U/L Alanine Aminotransferase (ALT/SGPT) 834 *H 12-78 U/L Alkaline Phosphatase 445 H 50-136 U/L Total Creatine Kinase 398 H 21-232 U/L Troponin I High Sensitivity 643.7 *H 4-50 ng/L Total Protein 6.2 6.0-8.3 g/dL Albumin 2.2 L 3.5-5.0 g/dL Triglycerides Level 59 30-200 mg/dL Cholesterol Level 86 <200 mg/dL LDL Cholesterol 40 0-99 mg/dL HDL Cholesterol 23 L 35-85 mg/dL Whole Blood Ketones Quantitative 0.4 0.0-0.6 mmol/L Iron Level 102 50-170 mcg/dL Total Iron Binding Capacity 181 L 250-450 mcg/dL Percent Iron Saturation 56.3 H 22-44 % Ammonia < 10 L 11-32 umol/L Lipase 72 16-77 U/L Procalcitonin 5.56 H 0.05-0.5 ng/mL Hemoglobin A1c 5.9 4.0-6.0 % Estimated Average Glucose (eAG) 123 70-126 mg/dL Thyroid Stimulating Hormone (TSH) 2.59 0.36-3.74 uIU/mL Test 02/23/25 00:33 Range/Units B-Type Natriuretic Peptide 80 0-100 pg/mL Coagulation Labs: Test 02/23/25 10:27 02/23/25 07:53 Range/Units Prothrombin Time 12.6 H 9.6-11.6 SEC Prothromb Time International Ratio 1.21 H 0.85-1.15 Activated Partial Thromboplast Time > 139.0 #*H 26.3-35.5 SEC DIAGNOSTICS / RADIOLOGY: REASON: hypoxic ORDERING PHYSICIAN: ANTHONY CHIU PROCEDURE: CXR1VW - CHEST 1VW Exam Type: CHEST 1VW Clinical Information: hypoxic Comparison: None Findings: Left PICC line is noted with tip within the mid superior vena cava and there are no other interval changes. IMPRESSION: Left PICC line as noted. DICTATED BY: KIT ALEMAN MD DATE: 02/24/25 1149 REASON: PICC PLACEMENT ORDERING PHYSICIAN: ANTHONY CHIU PROCEDURE: CXR1VW - CHEST 1VW Exam Type: CHEST 1VW Clinical Information: PICC PLACEMENT Comparison: None Findings: Left PICC line is noted with tip within the mid superior vena cava and there are no other interval changes. IMPRESSION: Left PICC line as noted. DICTATED BY: KIT ALEMAN MD DATE: 02/23/25 1429 REASON: rule out intrabdominal infection ORDERING PHYSICIAN: ANTHONY CHIU PROCEDURE: ABD PEL WO - CT ABDOMEN/PELVIS W/O CONTRAST Exam Type: CT ABDOMEN/PELVIS W/O CONTRAST Clinical Information: rule out intrabdominal infection Comparison: None CT Dose Index (CTDI): 10.20 mGy Dose Length Product (DLP): 530.00 total mGy-cm PROTOCOL: Routine noncontrast helical scanning of the abdomen and pelvis was performed at 5mm collimation. Findings: Please note that this is a noncontrast study but there is residual contrast within the urinary tract, probably from a recent exam. Please correlate with patient's immediate history. The liver is enlarged and there is a complex structure within the right lobe extending into the left lobe, large, centrally located and measuring 16.1 x 14.3 cm. The appearance of the structures that of a developing abscess or a parenchymal hematoma of the liver, less likely. No evidence of nephro or ureterolithiasis is found. No hydronephrosis or ureteral dilatation is seen. The lung bases are clear. The stomach is unremarkable. It shows no wall thickening. No gross ulceration is seen. It is not overly distended. There are no surrounding inflammatory changes. No wall lesions are identified to suggest cancer. The spleen is unremarkable. It is not enlarged. The pancreas shows normal anatomy. It is not fatty replaced. It shows no lesions. The pancreatic duct is not dilated. The gallbladder is surgically absent. The adrenal glands are unremarkable. There is no enlargement. No lesions are noted. The appendix is unremarkable. It shows no evidence of inflammation. No appendicolith is seen. The small bowel is unremarkable. There is no evidence of dilatation to suggest obstruction. No evidence of adynamic ileus is seen. There is no small bowel wall thickening to suggest enteritis. The colon is unremarkable. The urinary bladder is unremarkable. There is no wall thickening to suggest tumor or inflammation. There are no intraluminal calculi. There are no diverticula. There is no evidence of chronic bladder outlet obstruction. There is no evidence of urinary bladder distention to suggest urinary retention. Means catheter noted in place. The other pelvic structures are unremarkable. The bony and vascular structures are unremarkable for the patient's age. IMPRESSION: Hepatic abscess, less likely hematoma as noted above. This study was performed using dose reduction techniques to include automated exposure control and/or adjustment of the mA and/or kV according to patient size. DICTATED BY: KIT ALEMAN MD DATE: 02/23/25 1431 REASON: shortness of breath ORDERING PHYSICIAN: ELVIRA [employer]AN [employer] PROCEDURE: CXR1VW - CHEST 1VW Exam Type: CHEST 1VW Clinical Information: shortness of breath Comparison: None Findings: The lungs are clear of infiltrates. The heart is enlarged. Bony and soft tissue structures of the chest wall are unremarkable. IMPRESSION: Cardiomegaly. Clear lungs. DICTATED BY: KIT ALEMAN MD DATE: 02/23/25 0903 ASSESSMENT: Acute renal failure Anemia Possible Septic shock, POA Possible acute ascending cholangitis, POA Triple-vessel disease, POA Non ST-elevation [place] type , elevated troponins Paroxysmal atrial fibrillation with RVR Left ventricular systolic function is moderate, per echo on 02/19/2025 Global wall hypokinesis LVEF is 40-45%, per echo on 02/19/2025. Severe diastolic dysfunction (restrictive filling), per echo on 02/19/2025 Mild aortic, mitral, and tricuspid regurgitation, per echo on 02/19/2025. Bradycardia episodes, POA Rhino virus, possibly bronchopneumonia Transaminitis Polycystic liver disease Significant increase in the size of intrahepatic cystic lesions, associated with increased intrahepatic bile duct dilatation, per MRCP on 02/21/2025 Common bile duct dilatation AFib HTN dyslipidemia CAD CHF Dementia PLAN: Labs, diagnostic, radiologic exams reviewed and interpreted by myself and supervising physician. We have reviewed external records in detail Epogen 20,000 U SQ weekly. Pending complete abdominal ultrasound Require close monitoring of renal function and electrolytes Order CBC, CMP,and electrolytes in am Continue with antibiotics Renal diabetic diet BiPAP as necessary, for respiratory distress IV pressors as needed Monitor blood pressure adjust medication doses as needed Avoid hypotensive episodes May use Dilaudid 0.5 mg IV every 6 hours as needed for severe pain Monitor blood sugars Strict intake, output, and daily weight should be monitored Please renally adjust medications Avoid nephrotoxic and nonsteroidal drugs Avoid contrast if possible Will continue to monitor renal function, anemia, electrolytes Treatment plan discussed with patient Questions were answered We have discussed with the other team physicians in detail about the care plan We will continue to monitor the patient closely Total critical care time spent with patient, nursing staff, critical care team over 35 minutes ATTESTATION BY PHYSICIAN I have seen and examined the patient. I reviewed the documentation, medical decision making, and treatment plan as noted by the mid-level provider above. I agree with the findings and plan of care. EVGENY SMITH MD, [facility] February 24, 2025 14:10
[2025-02-24] MEDS: IpraTROPium 0.5 MG/2.5 ML INH IH SCH (14:17)
[2025-02-24] MEDS: M.V.I. IV [ADULT] 10 ML in CLINIMIX-E 5%AA /D15%W 2000ML 2,000 ML IV ONE (15:15)
[2025-02-24] MEDS ORDERED: DILT-36 PO (15:36)
[2025-02-24] MEDS ORDERED: FE F1CAP33 PO (15:39)
[2025-02-24] MEDS ORDERED: MECL-302 PO (15:39)
[2025-02-24] MEDS: EPOETIN ALFA-EPBX (NON-ESRD) 10,000 UNIT/ML VIAL SQ ONE (16:33)
--- NOTE | 2025-02-24 16:35 | CONS ---
INFECTIOUS DISEASE CONSULTATION DATE OF SERVICE: 02/24/2025 REQUESTING PHYSICIAN: Alexi Nathan MD REASON FOR CONSULTATION: Septic shock and antibiotic management. HISTORY OF PRESENT ILLNESS: A 74-year-old female with atrial fibrillation, hypertension, dyslipidemia, and coronary artery disease who was transferred from [facility] for a higher level of care. The patient was originally admitted to [facility] with chest pain. The patient had cardiac catheterization done, which shows multivessel coronary artery disease. The patient transferred to [facility] for evaluation for CABG. Upon arrival, the patient was found with elevated liver enzymes, renal failure, elevated WBC and was transferred to ICU because of septic shock. Imaging of the abdomen has been done, which is consistent with liver abscess. The patient is on vasopressor. Hemoglobin today is 7.0. The patient is refusing blood transfusion due to advent belief. The patient is a Jehovah Witness. The patient has no cough, no shortness of breath. Denies chest pain. No palpitation or orthopnea. The patient was also found with renal failure. Means catheter has been placed. PAST MEDICAL HISTORY: * Atrial fibrillation. * Hypertension. * Dyslipidemia. * Coronary artery disease. * CHF. * Dementia. PAST SURGICAL HISTORY: Cardiac catheterization. ALLERGIES: No known drug allergies. CURRENT MEDICATIONS: Include, * Zosyn. * Lipitor. * Dilaudid. * Flagyl. * Tylenol. * Levophed. SOCIAL HISTORY: No alcohol, tobacco or illicit drug use. The patient is a Jehovah Witness. FAMILY HISTORY: Noncontributory. REVIEW OF SYSTEMS: Greater than 10-system were reviewed, negative as documented above. PHYSICAL EXAMINATION: GENERAL: Elderly female, awake. VITAL SIGNS: Temperature 97.7, pulse 89, respiratory rate 14, blood pressure 108/62. EYES: No icterus. Pupils equal and reactive. HENT: No oral thrush seen. Moist oral mucosa. NECK: Supple. No JVD or thyromegaly. LUNGS: Good air entry. No rales. No rhonchi. CARDIOVASCULAR: S1 and S2, regular. No murmur heard. ABDOMEN: Full, soft, nontender. Bowel sound is present. CENTRAL NERVOUS SYSTEM: Awake. Dictation ends here. TID: [id number] RECEIPT: [id number]
--- NOTE | 2025-02-24 18:16 | CONS ---
Cardiology Consult Note Attending Finisher Wallboard And Plasterboard: Dr. Jewel Valverde Consulting Physician: Hospitalist Date of Service: 02/24/2025 Reason for Consult: ACS-NSTEMI HPI: This is a 74y/o female with a past medical history of HTN, HLP, DM2, CAD s/p PCI with RASHAWN placement in the mid LAD done in 2008, paroxysmal atrial fibrillation, HFmrEF, polocytic liver disease, and Mosque who was transferred from [facility] for further evaluation from CT surgery for CABG secondary to ACS-NSTEMI with multivessel CAD. The patient's hospital course have been complicated by the development of multifactorial shock, leukocytosis, lactic acidosis, increased size in an intrahepatic cyst or abscess with concern for a hemorrhagic component, acute liver injury, acute renal failure, and acute blood loss anemia. Cardiology was consulted for treatment recommendations. PMH: Listed above PSH: Listed above FH: Noncontributory SH: Denies alcohol, tobacco, or illicit drug use. Allergies: Coded Allergies: No Known Drug Allergies (Unverified Allergy, Unknown, 02/22/25) Review of systems: General: Denies fever or chills HEENT: Denies changes in vision, earache or sore throat Neck: Denies pain or stiffness Cardio: As per the HPI Pulm: Denies SOB, coughing or wheezing GI: As per the HPI MSK: Denies decreased ROM or joint pain. Heme: As per the HPI Neuro: Denies headache, dizziness, or syncope. Physical Exam: Vital Signs Date Time Temp Pulse Resp B/P (MAP) Pulse Ox O2 Delivery O2 Flow Rate FiO2 02/24/25 17:00 80 18 130/64 (86) 97 02/24/25 16:00 98.8 02/24/25 16:00 Nasal Cannula* 2 28 General: Alert and oriented. Ill appearing. Weak, frail, and pale. HEENT: NC/AT. Oral mucosa is moist. Neck: No masses, JVD, or carotid bruits Lungs: NRD. SCM. Bilateral air entry. Diminished breath sounds noted throughout. Cardio: Regular rate. Normal S1 and S2. +S4. No obvious murmurs, gallops, or rubs noted. Abdomen: Soft. ND. Normal active bowel sounds x 4 quadrants. Extremities: Diminished throughout. No edema, clubbing, or cyanosis. Neuro: CN II-XII were grossly intact. No focal deficits. Labs: Laboratory Tests Test 02/23/25 19:32 02/23/25 21:17 02/24/25 06:28 02/24/25 08:56 Range/Units Sodium Level 132 L 131 L 136-145 mmol/L Potassium Level 4.1 4.3 3.5-5.1 mmol/L Chloride Level 98 L 97 L 101-111 mmol/L Carbon Dioxide Level 20 L 21 21-32 mmol/L Blood Urea Nitrogen 62 H 76 *H 7-18 mg/dL Creatinine 4.0 H 4.7 H 0.5-1.0 mg/dL Glomerular Filtration Rate Calc 11 9 >90 mL/min Random Glucose 130 H 132 H 70-105 mg/dL Total Calcium 7.0 L 7.1 L 8.5-10.1 mg/dL Whole Blood Glucose 125 H 118 H 70-110 MG/DL White Blood Count 21.1 H 4.8-10.8 K/uL Red Blood Count 2.21 L 4.00-5.50 MIL/uL Hemoglobin 7.0 *L 12.0-16.0 g/dL Hematocrit 20.5 *L 36-48 % Mean Corpuscular Volume 92.8 79-99 fL Mean Corpuscular Hemoglobin 31.7 27.0-33.0 pg Mean Corpuscular Hemoglobin Concent 34.1 32.0-36.0 g/dL Red Cell Distribution Width 14.1 11.0-15.5 % Platelet Count 200 130-400 K/uL Mean Platelet Volume 11.6 H 7.5-10.5 fL Immature Granulocyte % (Auto) 1.6 H 0-1 % Neutrophils (%) (Auto) 86.8 H 40.0-77.0 % Lymphocytes (%) (Auto) 6.8 L 21.0-51.0 % Monocytes (%) (Auto) 4.7 3.0-13.0 % Eosinophils (%) (Auto) 0.0 0.0-8.0 % Basophils (%) (Auto) 0.1 0.0-5.0 % Neutrophils # (Auto) 18.3 H 1.8-7.7 K/uL Lymphocytes # (Auto) 1.4 1.0-4.8 K/uL Monocytes # (Auto) 1.0 0.1-1.0 K/uL Eosinophils # (Auto) 0.00 0.00-0.70 K/uL Basophils # (Auto) 0.02 0.00-0.20 K/uL Absolute Immature Granulocyte (auto 0.33 0-1 K/uL Nucleated Red Blood Cells 0.6 H 0.0-0.19 % Lactic Acid Level 2.6 H 0.8-2.5 mmol/L Uric Acid 6.8 2.6-7.2 mg/dL Phosphorus Level 6.5 H 2.5-4.9 mg/dL Magnesium Level 2.00 1.80-2.40 mg/dL Total Bilirubin 2.7 H 0.2-1.0 mg/dL Aspartate Amino Transf (AST/SGOT) 1219 *H 10-37 U/L Alanine Aminotransferase (ALT/SGPT) 834 *H 12-78 U/L Alkaline Phosphatase 445 H 50-136 U/L Total Creatine Kinase 398 H 21-232 U/L Troponin I High Sensitivity 643.7 *H 4-50 ng/L Total Protein 6.2 6.0-8.3 g/dL Albumin 2.2 L 3.5-5.0 g/dL Triglycerides Level 59 30-200 mg/dL Cholesterol Level 86 <200 mg/dL LDL Cholesterol 40 0-99 mg/dL HDL Cholesterol 23 L 35-85 mg/dL Test 02/24/25 11:24 02/24/25 16:31 Range/Units Whole Blood Glucose 115 H 131 H 70-110 MG/DL Assessment: -Multifactorial shock -Sepsis -Leukocytosis -Lactic acidosis -Intrahepatic cyst or abscess with concern for a hemorrhagic component -Acute liver injury -Acute renal failure -ACS-NSTEMI -Acute blood loss anemia -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 Multifactorial shock -Secondary to sepsis, multiorgan failure, and acute blood loss anemia -The patient has been evaluated by IR for possible drainage of the hepatic cyst/abscess, but has deemed her too high of a risk to undergo any procedure due to bleeding risks, thus treatment options remain incredibly limited. She has been started on IV iron and was given a dose of epoetin in hopes to address her underlying anemia. -Currently on IV vasopressor support with norepinephrine 2. ACS-NSTEMI -Unfortunately antiplatelet therapy had been held due to the patient's acute blood loss anemia (suspected intrahepatic hemorrhage) and she is not a candidate for BB therapy due to the need for IV vasopressor support or statin therapy due to her acute liver injury. -Furthermore, she is not a candidate for CABG at this time due to her underlying shock, multiorgan failure, and anemia in which she is refusing blood product transfusion. In light of the patient's clinical status and increased risk of in hospital mortality, goals of care and code status should be reevaluated, and consideration for transitioning to Palliative Care/Comfort Measures would be an appropriate option. Thank you for this interesting consult and allowing us to participate in the care of your patient. This case was discussed with my Supervising Physician, Dr. Jewel Valverde, and the above mentioned plan was formulated and agreed upon. -Consult Note written by Nita Mathis, MSN, [employer], AGACNP-BC NITA MATHIS ECHO VASCULAR TECH February 24, 2025 18:15
[2025-02-24] MEDS: hydroMORPHone 1 MG INJ IVP ONE (18:32)
[2025-02-24] MEDS: ondanSETRON 4MG INJ IVP PRN (18:38)
[2025-02-24] MEDS: PANTOPrazole 40 MG/VIAL IVP SCH (20:53)
--- NOTE | 2025-02-24 21:15 | CONS ---
This is a 74-year-old lady, transferred from [place], presents with a liver cyst and three-vessel coronary artery disease. The patient is a Evangelical. I have discussed the case with Dr. Ovalles. We both agree she meets indications for surgery; however, she has poor access and she is a Evangelical. The hemoglobin is down to 7, so it would not be safe to proceed with any surgical intervention at this point. We will have to build up the hemoglobin by giving IV iron, vitamin B6, B12, and Procrit. The patient also has a liver cyst which needs to be drained to rule out infectious versus malignant process. I will follow with you. At this time, she is not a surgical candidate. TID: [id number] RECEIPT: [id number]
[2025-02-24] MEDS: PHYTONADIONE 10 MG/1 ML AMP SQ ONE (23:31)
[2025-02-25] VITALS (71 sets, daily range): BP systolic 68–145; BP diastolic 30–84; PULSE 81–108; RESP 11–93; TEMP 97.5–97.8; O2SAT 94–100
[2025-02-25] MEDS ORDERED: NOREPINEPHRINE BITARTRATE 32 MG in 0.9% NACL 250ML 250 ML IV SCH (09:00)
[2025-02-25] MEDS ORDERED: PHARMACY COMMUNICATION MISC SCH (09:00)
[2025-02-25] MEDS: NOREPINEPHRINE BITARTRATE 32 MG in 0.9% NACL 250ML 250 ML IV SCH (09:08)
--- NOTE | 2025-02-25 09:58 | HMCIMG ---
Exam Type: CHEST 1VW Clinical Information: hypoxic Comparison: None Findings: Pulmonary pattern is as before. No worrisome interval changes have taken place. Impression: Stable exam.
--- NOTE | 2025-02-25 10:47 | PN ---
[facility] Cardiology Progress Note Cardiology progress note February 25, 2025 Problems: 1. Non ST-elevation myocardial infarction 2. Multifactorial shock including sepsis 3. Intrahepatic cyst versus abscess, history of polycystic liver disease 4. Acute liver injury 5. Acute renal insufficiency with a GFR less than 10 6. Anemia secondary to blood loss 7. CAD status post drug-eluting stent in the mid LAD 2008 with ejection fraction of 40-45% this admission 8. Confucianist declining blood products 9. Hypertension 10. Dyslipidemia 11. Diabetes mellitus type 2 The patient is receiving iron therapy and Epogen for his underlying anemia. Continues on pressor support. His antiplatelet agents have been held because of drop in hemoglobin. [place] [address] hemoglobin has dropped from 8.2-7.0. The patient continues on doxycycline insulin scale metronidazole norepinephrine pantoprazole Zosyn antibiotic and thiamine. The patient has been seen by the CT surgery service and is not felt to be a candidate for surgery at this time. Recommendations were made to potentially drain the liver cyst when able and to try to improve the hemoglobin. Currently she is resting comfortably flat and denies any chest pain or shortness of breath. She has good breath sounds bilaterally. She is receiving an iron infusion currently. Prognosis remains guarded. LORRIE HUYNH MD February 25, 2025 10:47
--- NOTE | 2025-02-25 11:31 | PN ---
[facility] PROGRESS NOTE Date of Service: February 25, 2025 Time of Service: 11:28 SUBJECTIVE: [ ] Ms. Rodriguez is a 74 year old female with a history of AFib, HTN, dyslipidemia, CAD, CHF, and dementia who presented to [facility] as a transfer from [facility] for the Diagnosis of triple-vessel disease and for evaluation of a CABG. The patient was seen by me on arrival to [facility]. RN reports that on arrival patient's blood pressure was 82/44, heart rate 81, map 62, 98% on room air. He reports the patient was clammy and diaphoretic. EKG was done which showed sinus rhythm, PACs, L BBB, ST-elevation secondary to IVCD. Per chart review the patient presented to [facility] and was found to have leukocytosis, normocytic anemia, hypokalemia, elevated LFTs, elevated troponin, and hypoalbuminemia. The patient is a Jehovah Witness. The patient had an ultrasound of the abdomen which revealed complex hepatic cyst apparently surgery was consulted in the past but patient declined intervention. Other significant finding was dilated common bile duct with sternal echogenic material with posterior shadowing favoring choledocholithiasis. The patient was transferred on Levophed to ICU and was started on heparin drip. 02/23 patient is seen and evaluated earlier this morning at bedside, patient alert and oriented x3, on supplemental oxygen via nasal cannula at 2 L, saturating 98%, she remains on heparin drip and Levophed. Denies chest pain, denied shortness a breath. Chest x-ray reviewed, cardiomegaly with clear lungs. Patient noted to have leukocytosis, with WBC 9.4, hemoglobin stable at 9.6. The patient 3.1. Daughter is at bedside during my visit, updated. 02/24 patient is seen and examined at bedside, remains on Levophed for blood pressure support, BP 108/62, afebrile, saturating 98% 2 L nasal cannula. Patien t getting broad-spectrum IV antibiotics. Son is at the bedside during my visit. Ultrasound of the abdomen as well as CT of the abdomen suspected right liver lobe abscess, common bile duct and intrahepatic bile duct dilatation with choledocholithiasis is present. Discussed findings with both the patient and the son at bedside, all questions answered. Understood all the information provided. Patient hemoglobin today 7.0, hematocrit 20.5, persistent leukocytosis at 21.1. 02/25 patient is seen and examined at bedside, she remains alert oriented x3, remains on Levophed for blood pressure support, she is getting broad-spectrum IV antibiotics, getting nutritional support via TPN. BP 99/54, she is saturating 100% on 3 L via nasal cannula. Latest hemoglobin of 7.0, hematocrit 20.5, with WBC persistently elevated at 21.1. REVIEW OF SYSTEMS 12-point ROS reviewed. All pertinent positives mentioned above. Otherwise negative, noncontributory, non-pertinent. PHYSICAL EXAM GENERAL APPEARANCE: The patient is awake, alert, and oriented, in no acute cardiopulmonary distress. Appears weak, diaphoretic. NEUROLOGICAL: Cranial nerves II-XII grossly intact. Motor is 5/5 in bilateral upper and lower extremities proximal to distal. No sensory deficits. HEENT: Face is symmetric. Pupils are equal and reactive. Extraocular movements are intact. NECK: Supple. No JVD. No thyromegaly. No submental, submandibular, pre- /postauricular, occipital or supraclavicular lymphadenopathy. CHEST: Normal chest expansion. No Telemetry. LUNGS: Absence of any rales, rhonchi or any wheezing. CARDIOVASCULAR: Regular. S1 and S2 normal. No appreciable rubs, murmurs or gallops. ABDOMEN: Soft, nontender, and nondistended. There is no rebound, voluntary guarding, or rigidity. : Deferred. No Means. EXTREMITIES: Non-edematous and not cyanotic. No clubbing. Good capillary refill. SKIN: No skin breakdown. Vital Signs (last 8hr) Date Time Temp Pulse Resp B/P (MAP) Pulse Ox O2 Delivery O2 Flow Rate FiO2 02/25/25 09:08 113/62 02/25/25 08:00 97.7 02/25/25 08:00 100 Nasal Cannula* 3 32 02/25/25 08:00 90 12 99/54 (69) 100 02/25/25 07:30 88 18 93/55 (68) 97 02/25/25 07:11 83 18 02/25/25 07:09 83 18 N/Cannula Low lpm 2.0 28 02/25/25 07:00 90 13 113/64 (80) 100 02/25/25 06:29 81 13 101/57 (72) 100 02/25/25 06:14 81 35 90/48 (62) 97 02/25/25 05:44 82 13 105/58 (74) 97 02/25/25 05:29 87 13 102/54 (70) 94 02/25/25 05:14 83 18 89/51 (64) 100 02/25/25 04:59 83 15 105/57 (73) 96 02/25/25 04:54 84 14 94/61 (72) 99 02/25/25 04:44 86 14 68/30 (43) 100 02/25/25 04:29 93 15 112/72 (85) 95 02/25/25 04:14 97.7 87 11 115/53 (73) 90 02/25/25 04:10 98 Nasal Cannula* 3 32 02/25/25 03:59 83 15 97/61 (73) 100 02/25/25 03:44 88 13 111/52 (71) 96 02/25/25 03:29 90 14 92/61 (71) 99 LABS: Laboratory: Test 02/25/25 06:34 02/24/25 08:56 02/23/25 12:05 Range/Units Whole Blood Glucose 152 #H 70-110 MG/DL White Blood Count 21.1 H 4.8-10.8 K/uL Red Blood Count 2.21 L 4.00-5.50 MIL/uL Hemoglobin 7.0 *L 12.0-16.0 g/dL Hematocrit 20.5 *L 36-48 % Mean Corpuscular Volume 92.8 79-99 fL Mean Corpuscular Hemoglobin 31.7 27.0-33.0 pg Mean Corpuscular Hemoglobin Concent 34.1 32.0-36.0 g/dL Red Cell Distribution Width 14.1 11.0-15.5 % Platelet Count 200 130-400 K/uL Mean Platelet Volume 11.6 H 7.5-10.5 fL Immature Granulocyte % (Auto) 1.6 H 0-1 % Neutrophils (%) (Auto) 86.8 H 40.0-77.0 % Lymphocytes (%) (Auto) 6.8 L 21.0-51.0 % Monocytes (%) (Auto) 4.7 3.0-13.0 % Eosinophils (%) (Auto) 0.0 0.0-8.0 % Basophils (%) (Auto) 0.1 0.0-5.0 % Neutrophils # (Auto) 18.3 H 1.8-7.7 K/uL Lymphocytes # (Auto) 1.4 1.0-4.8 K/uL Monocytes # (Auto) 1.0 0.1-1.0 K/uL Eosinophils # (Auto) 0.00 0.00-0.70 K/uL Basophils # (Auto) 0.02 0.00-0.20 K/uL Absolute Immature Granulocyte (auto 0.33 0-1 K/uL Nucleated Red Blood Cells 0.6 H 0.0-0.19 % Sodium Level 131 L 136-145 mmol/L Potassium Level 4.3 3.5-5.1 mmol/L Chloride Level 97 L 101-111 mmol/L Carbon Dioxide Level 21 21-32 mmol/L Blood Urea Nitrogen 76 *H 7-18 mg/dL Creatinine 4.7 H 0.5-1.0 mg/dL Glomerular Filtration Rate Calc 9 >90 mL/min Random Glucose 132 H 70-105 mg/dL Lactic Acid Level 2.6 H 0.8-2.5 mmol/L Uric Acid 6.8 2.6-7.2 mg/dL Total Calcium 7.1 L 8.5-10.1 mg/dL Phosphorus Level 6.5 H 2.5-4.9 mg/dL Magnesium Level 2.00 1.80-2.40 mg/dL Total Bilirubin 2.7 H 0.2-1.0 mg/dL Aspartate Amino Transf (AST/SGOT) 1219 *H 10-37 U/L Alanine Aminotransferase (ALT/SGPT) 834 *H 12-78 U/L Alkaline Phosphatase 445 H 50-136 U/L Total Creatine Kinase 398 H 21-232 U/L Troponin I High Sensitivity 643.7 *H 4-50 ng/L Total Protein 6.2 6.0-8.3 g/dL Albumin 2.2 L 3.5-5.0 g/dL Triglycerides Level 59 30-200 mg/dL Cholesterol Level 86 <200 mg/dL LDL Cholesterol 40 0-99 mg/dL HDL Cholesterol 23 L 35-85 mg/dL Hepatitis A IgM Antibody Non-Reactive Nonreactive Hepatitis B Surface Antigen. Non-Reactive Nonreactive Hepatitis B Core IgM Antibody Non-Reactive Negative Hepatitis C Antibody Non-Reactive Nonreactive Current Medications Medications (Trade) Dose Ordered Sig/Nathan Route PRN Reason Start Time Stop Time Status Last Admin Dose Admin Acetaminophen (TYLenol 325MG TAB) 650 mg Q6H PRN PO FEVER/MILD PAIN LEVEL 1-3 02/23/25 00:00 03/25/25 00:00 Acetaminophen (TYLenol 650MG SUPPOSITORY) 650 mg Q6H PRN RC FEVER / MILD PAIN 1-3 IF NPO 02/23/25 00:00 03/25/25 00:00 Atorvastatin Calcium (LIPItor 40MG) 40 mg HS PO 02/23/25 00:15 03/25/25 00:14 Hold 02/23/25 01:51 40 MG Docusate Sodium (COLace 100MG CAP) 100 mg BID PRN PO CONSTIPATION 02/23/25 00:00 03/25/25 00:00 Doxycycline Hyclate 250 ml @ 125 mls/hr Q12H IV 02/23/25 09:30 03/05/25 09:29 02/25/25 08:20 125 MLS/HR Heparin Sodium/ Dextrose 250 ml @ 0 mls/hr PROTOCOL IV 02/23/25 00:30 03/25/25 00:29 Hold 02/23/25 01:55 15 MLS/HR Hydromorphone HCl (DiLAUDid 0.5MG INJ) 0.5 mg Q4H PRN IVP SEVERE PAIN (7-10) 02/23/25 12:00 02/28/25 11:59 02/25/25 11:26 0.5 MG Insulin Human Regular (humuLIN R 100 UNIT/ML 3ML) INSULIN SLIDING SCAL... ACHS SQ 02/23/25 07:30 03/25/25 07:29 Ipratropium [place] (AtrovENT UD) 0.5 MG [id number] IH 02/24/25 14:00 03/26/25 13:59 02/25/25 07:11 0.5 MG Iron Sucrose (VenoFER) 200 mg Q24H IV 02/24/25 11:00 02/27/25 10:59 02/25/25 10:00 200 MG Lactated Ringer's (Lactated Ringers 1000ml) 500 ml ONCE IV 02/23/25 09:30 02/23/25 09:31 DC 02/23/25 09:44 500 ML Lactulose (Constulose 20gm/ 30ml Udcup) 20 gm Q6H PRN PO CONSTIPATION 02/23/25 00:00 03/25/25 00:00 Magnesium Sulfate 50 ml @ 0 mls/hr PROTOCOL PRN IV low magnesium 02/23/25 13:00 03/25/25 12:59 Melatonin (Melatonin) 10 mg HS PO 02/23/25 21:00 03/25/25 20:59 02/23/25 20:57 10 MG Metronidazole/ Sodium Chloride 100 ml @ 100 mls/hr Q8H6 IVPB 02/23/25 22:00 03/05/25 21:59 02/25/25 06:30 100 MLS/HR Norepinephrine 250 ml @ 33.509 mls/ hr PROTOCOL IV 02/23/25 05:30 02/25/25 08:39 DC 02/23/25 12:31 33.509 MLS/HR Norepinephrine Bitartrate 32 mg/ Sodium Chloride 250 ml @ 0 mls/hr AD IV 02/25/25 09:00 02/25/25 08:39 DC Norepinephrine Bitartrate 32 mg/ Sodium Chloride 250 ml @ 0 mls/hr PROTOCOL IV 02/25/25 09:00 03/27/25 08:59 02/25/25 09:08 8.4 MLS/HR Ondansetron HCl (zoFRAN 4MG INJ) 4 mg Q6H PRN IVP NAUSEA/VOMITING 02/23/25 00:00 03/25/25 00:00 02/24/25 18:38 4 MG Pantoprazole Sodium (PROTonix 40MG INJ) 40 mg BID IVP 02/24/25 21:00 03/25/25 12:59 02/25/25 08:20 40 MG Pantoprazole Sodium (PROTonix 40MG INJ) 40 mg DAILY IVP 02/23/25 13:00 02/24/25 10:44 DC 02/24/25 10:18 40 MG Pharmacy Profile Note (Pharmacy Communication) 1 each ONCE MISC 02/25/25 09:00 03/04/25 08:59 Cancel Pharmacy Profile Note (Pharmacy Communication) 1 each ONCE MISC 02/23/25 19:00 02/23/25 19:16 DC Piperacillin Sod/ Tazobactam Sod (Zosyn 3.375gm+NS 50ml) 3.375 gm Q12H IV 02/23/25 09:30 03/05/25 09:29 02/25/25 10:00 3.375 GM Potassium Chloride 100 ml @ 100 mls/hr AD PRN IV POTASSIUM PROTOCOL 02/23/25 13:00 03/25/25 12:59 Potassium Chloride 100 ml @ 100 mls/hr AD PRN IV POTASSIUM PROTOCOL 02/23/25 13:00 03/25/25 12:59 Potassium Chloride (K-Dur/Klor-Con 20meq) 10 meq AD PRN PO POTASSIUM PROTOCOL 02/23/25 13:00 03/25/25 12:59 Potassium Chloride (KCl 10% Elixir 20meq/15ml) 10 meq AD PRN PO POTASSIUM PROTOCOL 02/23/25 13:00 03/25/25 12:59 Sodium Bicarbonate (Sodium Bicarbonate) 650 mg BID PO 02/23/25 21:00 03/25/25 20:59 02/23/25 20:57 650 MG Sodium Chloride 500 ml @ 0 mls/hr Q0M IV 02/24/25 11:00 03/26/25 10:59 Sodium Chloride 1,000 ml @ 50 mls/hr Q20H IV 02/23/25 09:30 02/24/25 10:40 DC 02/24/25 08:33 50 MLS/HR Temazepam (restORIL 15 MG CAP) 15 mg HS PRN PO INSOMNIA/SLEEP 02/23/25 00:00 03/25/25 00:00 Thiamine HCl (Vitamin B-1) 100 mg DAILY IM 02/24/25 09:00 02/24/25 10:22 DC Thiamine HCl (Vitamin B-1) 100 mg DAILY IV 02/24/25 10:30 03/26/25 10:29 02/25/25 08:20 100 MG Vitamin B Complex/ Vit C/Folic Acid (Nephrovite Tablet) 1 cap DAILY PO 02/24/25 09:00 03/26/25 08:59 DIAGNOSTICS / RADIOLOGY: [ ] ASSESSMENT: Septic shock, POA Acute ascending cholangitis, POA Suspected right liver lobe abscess, POA Common bile duct dilatation, POA Intrahepatic bile duct dilatation with choledocholithiasis, POA CAD with a Triple-vessel disease, POA Non ST-elevation [place] type , elevated troponins Paroxysmal atrial fibrillation with RVR Left ventricular systolic function is moderate, per echo on 02/19/2025 Global wall hypokinesis LVEF is 40-45%, per echo on 02/19/2025. Severe diastolic dysfunction (restrictive filling), per echo on 02/19/2025 Mild aortic, mitral, and tricuspid regurgitation, per echo on 02/19/2025. Bradycardia episodes, POA Rhino virus, possibly bronchopneumonia Transaminitis possible shock liver Polycystic liver disease Significant increase in the size of intrahepatic cystic lesions, associated with increased intrahepatic bile duct dilatation, per MRCP on 02/21/2025 Common bile duct dilatation Chronic problem list: AFib, HTN, dyslipidemia, CAD, CHF, dementia Jehovah Witness Anemia of chronic disease PLAN: Patient remains admitted to the ICU Continue the patient on supplemental oxygen via nasal cannula at 2 L to keep oxygen saturation greater than 94% Continue the patient on Levophed, wean as tolerated Critical care consultation requested, case discussed Cardiothoracic surgery consultation requested, we will follow input and recomm endation The patient with transaminitis, per chart review, admission [facility], The patient had an ultrasound of the abdomen which revealed complex hepatic cyst apparently surgery was consulted in the past but patient declined intervention. Other significant finding was dilated common bile duct with sternal echogenic material with posterior shadowing favoring loretta docholithiasis. CT of the abdomen as well as repeat liver ultrasound done at [facility] suspected right liver low abscess, common bile duct and intrahepatic bile ductal dilatation with choledocholithiasis. The patient with persistent leukocytosis. Continue the patient on broad-spectrum IV antibiotics with Flagyl, Zosyn IV and doxycycline IV. Infectious Disease consultation requested, we will follow input and recommendation. Follow results of septic workup Patient with possible liver abscess versus hematoma. Continue to monitor liver enzymes in a.m. Follow anemia workup, hemoglobin worse today. GI consultation requested, follow input and recommendation. The patient is Jehovah Witness Prognosis of this patient is guarded. NEURO: Minimize central acting medications as possible. Fall Precautions. Well lighted room through the day and minimize interruptions through the night to prevent acute delirium. PULMONARY: Supplemental 02 as needed BiPAP as necessary, for respiratory distress Titrate Fio2 to keep Spo2 > or = 90% DuoNebs and CPT as needed IS hourly while awake for pulmonary hygiene prn Out of bed to chair as tolerated Maintain aspiration precautions at all times CARDIOVASCULAR: Follow hemodynamics. Vital signs per facility protocol GI & NUTRITION: Continue nutritional support Aspirations precautions Prokinetic agents and laxatives as needed KIDNEYS & ELECTROLYTES: Strict monitoring of intake and output Daily weights Avoid nephrotoxic agents Monitor electrolytes and replace as needed Goal urine output of 30mL/hr or 0.5mL/kg/hr Medications to be dosed according to renal function. Avoid contrast if possible ENDOCRINE: Maintain blood glucose between 100-180 at all times. Insulin sliding scale for blood glucose management Hypoglycemia and hyperglycemia protocol in place INFECTIOUS DISEASE: Trend temperature, WBC and procalcitonin level Follow cultures, deescalate antibiotics as soon as possible. Panculture if new onset fever HEMATOLOGY & COAGULATION: Monitor H&H. Keep Hgb > 7 Transfuse 1 unit of PRBC for Hgb < 7 Transfuse 1 pack of platelets of platelets < 20, 000 Watch for any signs and symptoms of bleeding SKIN: Pressure ulcer prevention per facility protocol Specialty mattress as needed ORTHO/REHAB Continue PT/OT PRN: MEDICATIONS Tylenol 650 mg po every 4 hrs for fever zofran 4 mg IV every 6 hrs for n/v Hydralazine 5 mg IV every 4 hrs systolic pressure > 160 bowel regiment: lactulose 20 gm PO BID PRN constipation Supportive measures: Continue GI and DVT prophylaxis Disposition: Pending improvement in clinical condition All questions answered time spent: > 35 min FRANCIA SETHI MD February 25, 2025 11:31
--- NOTE | 2025-02-25 12:00 | NUR ---
I HAVE ROUNDED WITH DR SETHI THIS AM- HE ASKED PT IF SHE WOULD ACCEPT BLOOD TRANSFUSION AND SHE SAID "NO". 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 Marci CHIU HAD CONVERSATION WITH SON SUZANNA ON THE PHONE. HE WAS INFORMED OF PROGNOSIS AND PLAN OF CARE . SUZANNA ASKS THAT LAB BE DRAWN TOMORROW 11/29/2024 USING PEDI TUBES ONLY. DNR/DNI DISCUSSED - PER SUZANNA FULL CODE AT THIS TIME.
--- NOTE | 2025-02-25 12:26 | PN ---
[facility] PROGRESS NOTE Date Patient Seen: February 25, 2025 Time of Visit: 12:22 Supervising Physician: Crispin Martin MD Primary Care Physician: Kin Guerra MD Outpatient Specialists: Inpatient Consults: NELIA, Dr Roche, Dr Kelton Patel MD , MD Dr Tito Lima MD PROBLEM LIST: Refractory Septic shock POA with combination Cardiogenic Shock SCAI Stage D Poor candidate for MCS due to Multiorgan failure Liver abscess w/ possible hemorrhagic component POA Acute on chronic anemia - Refusing blood due to Jehovah witness MvCAD- Not a candidate for CABG 2/2 to above NSTEMI Type II POA- Not on AC due to acute anemia Paroxysmal atrial fibrillation with RVR [id number] score 5 Points, HAS Bled Score of 4 Points (High Risk for bleed) Chronic diastolic Heart Failure with EF of 40-45% POA 02/19/25 Mild aortic, mitral, and tricuspid regurgitation, per echo on 02/19/2025. Non sustained VTach runs on 02/24/25 + Rhino virus POA (Tested + at [facility]) Transaminitis Polycystic liver disease Significant increase in the size of intrahepatic cystic lesions, associated with increased intrahepatic bile duct dilatation, per MRCP on 02/21/2025 at [facility] Common bile duct dilatation not adue to candidate for ERCP [facility] GI Chronic problem list: AFib, HTN, dyslipidemia, CAD, CHF, dementia Jehovah Witness INTERVAL HISTORY: Pt is awake to vocie and confused. GCS of 13. No major overnight events per RN. She appears pale and fatigue. she is currently on 3 L via RI saturatin 96%. She remains on pressors and as per RN having to increase dose. Per RN he has not been able to wean currently on Levophed at 0.3mcg/kg/min. Pt's family refusing blood draw for today due to acute anemia. Made them aware it will be even harder to tell if changes needed to be made. Son continue to refuse blood draw. I spoke to sons and updated on current state. I have asked if they are still refusing blood and or blood products and they said yes. For this we have recommended that the pt at least be DNR. Family continues to request full code but they have agreed for palliative care consult or likely next week. Pt's prognosis is poor we recommend hospice. REVIEW OF SYSTEMS: unable to perform due to encephalopathy. PHYSICAL EXAM: GENERAL: Pale alert, weak, awake oriented x 3 HEENT: EOMI, Sclera non icteric, moist mucosa NECK: Supple, no JVD, trachea midline LUNGS: Clear breath sounds bilaterally. No wheezes HEART: Regular rate and rhythm. Normal S1 and S2, without murmurs ABD: Abdomen soft, nontender. Bowel sounds present EXT: No clubbing cyanosis or edema NEURO: Alert and oriented to person, follows commands Vital Signs (last 8hr) Date Time Temp Pulse Resp B/P (MAP) Pulse Ox O2 Delivery O2 Flow Rate FiO2 02/25/25 09:08 113/62 02/25/25 08:00 97.7 02/25/25 08:00 100 Nasal Cannula* 3 32 02/25/25 08:00 90 12 99/54 (69) 100 02/25/25 07:30 88 18 93/55 (68) 97 02/25/25 07:11 83 18 02/25/25 07:09 83 18 N/Cannula Low lpm 2.0 28 02/25/25 07:00 90 13 113/64 (80) 100 02/25/25 06:29 81 13 101/57 (72) 100 02/25/25 06:14 81 35 90/48 (62) 97 02/25/25 05:44 82 13 105/58 (74) 97 02/25/25 05:29 87 13 102/54 (70) 94 02/25/25 05:14 83 18 89/51 (64) 100 02/25/25 04:59 83 15 105/57 (73) 96 02/25/25 04:54 84 14 94/61 (72) 99 02/25/25 04:44 86 14 68/30 (43) 100 02/25/25 04:29 93 15 112/72 (85) 95 LABS: Hematology Labs: Test 02/24/25 08:56 Range/Units White Blood Count 21.1 H 4.8-10.8 K/uL Red Blood Count 2.21 L 4.00-5.50 MIL/uL Hemoglobin 7.0 *L 12.0-16.0 g/dL Hematocrit 20.5 *L 36-48 % Mean Corpuscular Volume 92.8 79-99 fL Mean Corpuscular Hemoglobin 31.7 27.0-33.0 pg Mean Corpuscular Hemoglobin Concent 34.1 32.0-36.0 g/dL Red Cell Distribution Width 14.1 11.0-15.5 % Platelet Count 200 130-400 K/uL Mean Platelet Volume 11.6 H 7.5-10.5 fL Immature Granulocyte % (Auto) 1.6 H 0-1 % Neutrophils (%) (Auto) 86.8 H 40.0-77.0 % Lymphocytes (%) (Auto) 6.8 L 21.0-51.0 % Monocytes (%) (Auto) 4.7 3.0-13.0 % Eosinophils (%) (Auto) 0.0 0.0-8.0 % Basophils (%) (Auto) 0.1 0.0-5.0 % Neutrophils # (Auto) 18.3 H 1.8-7.7 K/uL Lymphocytes # (Auto) 1.4 1.0-4.8 K/uL Monocytes # (Auto) 1.0 0.1-1.0 K/uL Eosinophils # (Auto) 0.00 0.00-0.70 K/uL Basophils # (Auto) 0.02 0.00-0.20 K/uL Absolute Immature Granulocyte (auto 0.33 0-1 K/uL Nucleated Red Blood Cells 0.6 H 0.0-0.19 % Chemistry Labs: Test 02/25/25 06:34 02/24/25 08:56 Range/Units Whole Blood Glucose 152 #H 70-110 MG/DL Sodium Level 131 L 136-145 mmol/L Potassium Level 4.3 3.5-5.1 mmol/L Chloride Level 97 L 101-111 mmol/L Carbon Dioxide Level 21 21-32 mmol/L Blood Urea Nitrogen 76 *H 7-18 mg/dL Creatinine 4.7 H 0.5-1.0 mg/dL Glomerular Filtration Rate Calc 9 >90 mL/min Random Glucose 132 H 70-105 mg/dL Lactic Acid Level 2.6 H 0.8-2.5 mmol/L Uric Acid 6.8 2.6-7.2 mg/dL Total Calcium 7.1 L 8.5-10.1 mg/dL Phosphorus Level 6.5 H 2.5-4.9 mg/dL Magnesium Level 2.00 1.80-2.40 mg/dL Total Bilirubin 2.7 H 0.2-1.0 mg/dL Aspartate Amino Transf (AST/SGOT) 1219 *H 10-37 U/L Alanine Aminotransferase (ALT/SGPT) 834 *H 12-78 U/L Alkaline Phosphatase 445 H 50-136 U/L Total Creatine Kinase 398 H 21-232 U/L Troponin I High Sensitivity 643.7 *H 4-50 ng/L Total Protein 6.2 6.0-8.3 g/dL Albumin 2.2 L 3.5-5.0 g/dL Triglycerides Level 59 30-200 mg/dL Cholesterol Level 86 <200 mg/dL LDL Cholesterol 40 0-99 mg/dL HDL Cholesterol 23 L 35-85 mg/dL PATIENT: YVONNE STINSON MR#: [id number] : 1950 SEX: F AGE: 74 LOCATION: [facility] ORDER 1204 STATUS: ADM IN REPORT#: [id number] SERVICE 1203 REASON: acute heart failure ORDERING PHYSICIAN: ANTHONY CHIU PROCEDURE: ECHO CMP - ECHO 2-D COMPLETE APPROVED REPORT EXAM: Two-dimensional and M-mode echocardiogram with Doppler and color Doppler. INDICATION ICD: Acute heart failure 2D Dimensions RVDd 3.9 cm LVEF(%) 53.1 (>50%) LVED Vol(simp.) 57.0 mL IVSd 1.2 (0.7-1.1cm) FS(%) 26 % LVES Vol(simp.) 28.0 mL LVDd 3.1 (3.8-5.6cm) LA (2D) 4.6 (1.6-4.0cm) LVEF(%, simp.) 51 % PWd 1.4 (0.7-1.1cm) Ao Root(2D) 3.5 (2.0-3.7cm) LA ESV INDEX (BP) 34.59 mL/m2 IVSs 1.2 cm LVOT diam 2.2 (1.8-2.4cm) LVDs 2.3 (2.5-4.0cm) PWs 1.7 cm Deformation Strain Apical 4 -12.2 % Apical 2 -14.9 % Apical 3 -14.0 % Global Strain -13.7 % M-Mode Dimensions EPSS 0.9 cm LA (MM) 5.1 (1.6-4.0cm) Ao Root(MM) 3.1 (2.0-3.7cm) Aortic Valve AoV Vmax 1.8 m/s Ao Peak GR 12.7 mmHg LVOT Vmax 0.9 m/s AoV VTI 0.2 m Ao Mean GR 5.8 mmHg LVOT VTI 0.11 m PAZ (VMAX) 1.89 cm2 PAZ (VTI) 2.0 cm2 Mitral Valve MV E Vmax 45.4 cm/s DECEL Time 109 ms MV A Vmax 65.1 cm/s P 1/2 T 35 ms E/A ratio 0.7 MVA (PHT) 6.2 cm2 TDI E/E' Medial 20.7 E/E' Lateral 8.0 Medial E' Peak V 2.19 cm/s Lateral E' Peak V 5.68 cm/s Pulmonary Valve PV Vmax 1.2 m/s PV VTI 0.11 m PV Mean GR 3.1 mmHg PV Peak GR 5.7 mmHg PI End Anai. Jared 97.7 cm/s Tricuspid Valve RAP (EST) 8 mmHg RVSP 8.0 mmHg Left Ventricle The left ventricle is normal size. GLS -14.0% There is mild left ventricular wall thickness. LVEF is 50-55%. Stage I diastolic dysfunction. Right Ventricle The right ventricle is normal size. Right ventricular systolic function is borderline reduced. Atria The left atrium is borderline dilated. The right atrium size is normal. Aortic Valve The aortic valve is trileaflet, mildly thickened and opens well. Trace of aortic regurgitation is present. There is no aortic valvular stenosis. Mitral Valve Mitral valve leaflets appear normal. Mild posterior annular calcification noted. Mitral valve leaflets open well. There is trace of mitral valve regurgitation noted. There is no mitral valve stenosis. Tricuspid Valve The tricuspid valve is normal in structure. There is trace of tricuspid valve regurgitation noted. Pulmonic Valve The pulmonary valve is normal in structure. There is trace of pulmonic valvular regurgitation. Great Vessels The aortic root is normal in size. IVC is not well visualized. Pericardium There is no pericardial effusion. Other Information Quality : Technically difficult study due to body habitus Conclusion There is mild left ventricular wall thickness. Stage I diastolic dysfunction. GLS -14.0% DICTATED BY: LORRIE HUYNH MD DATE: 02/25/25 1402 ELECTRONICALLY SIGNED BY: LORRIE HUYNH MD DATE: 02/25/25 1622 PLAN ICU care Cardiac monitoring Cardiac enzymes BNP follow cardiology recommendations 2D echo done admission [facility] which shows EF of 4 40-45% CV has been consulted pending eval and recommendations AC on hold due to acute anemia Monitor for bleeding Vitamin K x 1 dose Iron IV x 3 days Epogen per neprhology recs PPI for risk of bleeding Glucose goal between 82 180 mg/dL Atorvastatin on hold due to elevated liver enzymes Sodium bicarb 650 mg p.o. b.i.d. Start Zosyn IV q.12 hours Doxycycline 100 mg IV q.12 hours Patient is NPO due to abdominal pain and nausea.-IVF with NS at 50 mL/hour for now. Stop IV fluids once patient tolerates p.o.. Appreciate GI eval and recommendations Follow recs from ID GI to eval no need for ERCP, per GI IR to has deemed pt to high risk for abscess drain intervention NEURO: Minimize central acting medications as possible. Fall Precautions. Well lighted room through the day and minimize interruptions through the night to prevent acute delirium. Patient with underlying history of dementia-melatonin q.h.s. PULMONARY: Supplemental 02 as needed Titrate Fio2 to keep Spo2 > or = 90% DuoNebs and CPT as needed IS hourly while awake for pulmonary hygiene Out of bed to chair as tolerated CXR with no obvious infiltrates CARDIOVASCULAR: Follow hemodynamics. Titrate vasopressor to keep MAP >65 or systolic blood pressure >95mmHg Continuous cardiac monitoring follow cardiology recommendations Drips: Levophed LINES: PIV PICC line GI & NUTRITION: Continue nutritional support Aspirations precautions Prokinetic agents and laxatives as needed resume clears GI consulted and appreciate recs KIDNEYS & ELECTROLYTES: Strict monitoring of intake and output Daily weights Avoid nephrotoxic agents Monitor electrolytes and replace as needed Goal urine output of 30mL/hr or 0.5mL/kg/hr potassium half protocol magnesium protocol ENDOCRINE: Maintain blood glucose between 100-180 at all times. Insulin sliding scale for blood glucose management A1C 5.9 at [facility]. TSH normal INFECTIOUS DISEASE: Trend temperature. Doyle-culture if febrile. Micro: [ ] Respiratory Urine Blood cultures covid Influenza a and B swab COVID-19 swab Antibiotics: Zosyn Doxy HEMATOLOGY & COAGULATION: Monitor H&H. Keep Hgb > 7 Transfuse 1 unit of PRBC for Hgb < 7 Transfuse 1 pack of platelets of platelets < 20, 000 Watch for any signs and symptoms of bleeding SKIN: Pressure ulcer prevention per facility protocol Rehab: PT/OT Prophylaxis: GI: Protonix DVT: Patient currently on heparin drip on HOLD due to high risk for bleeding and anemia, SCDS Code Status: Full Resuscitation Disposition: ICU Other: Critical care time60 This patient required multiple bedside visits to manage the patient, review blood gases, coordinate with respiratory, nurses, talk to [Specialist] review radiology exams, talk to the family members and discuss advanced directives. I personally spent 90 minutes of critical care time in treatment of this p atient. This includes patient management, time at bedside, time reviewing tests, labs, appropriate images and studies, documentation, and patient care coordination. This time excludes separately billable procedures. Case was discussed and seen with my supervising physician. The above plan was formulated and agreed upon. ATTESTATION BY PHYSICIAN I reviewed the documentation, medical decision making, and treatment plan as noted by the mid-level provider above. I agree with the findings and plan of care. Crispin Martin MD, NELLY J ARNP February 25, 2025 12:26
--- NOTE | 2025-02-25 13:44 | PN ---
NEPHROLOGY PROGRESS NOTE Date/Time Patient Seen: February 25, 2025 SUBJECTIVE: This is a 74 year old female with a history of AFib, HTN, dyslipidemia, CAD, CHF, and dementia She presented to [facility] as a transfer from [facility] for the Diagnosis of triple-vessel disease and for evaluation of a CABG. Per chart review the patient presented to [facility] and was found to have leukocytosis, normocytic anemia, hypokalemia, elevated LFTs, elevated troponin, and hypoalbuminemia. The patient is a Jehovah Witness. The patient had an ultrasound of the abdomen which revealed complex hepatic cyst apparently surgery was consulted in the past but patient declined intervention. Other significant finding was dilated common bile duct with sternal echogenic material with posterior shadowing favoring choledocholithiasis. She was noted with elevated BUN/creatinine. We has been consulted for renal failure Hemoglobin and iron panel was noted She has been started on Epogen and IV iron There was no labs collect this morning She was seen in the ICU REVIEW OF SYSTEMS: GENERAL: Negative for any nausea, vomiting, fevers, chills, or weight loss. NEUROLOGIC: Negative for any blurry vision, blind spots, double vision, facial asymmetry, dysphagia, dysarthria, hemiparesis, hemisensory deficits, vertigo, ataxia. HEENT: Negative for any head trauma, neck trauma, neck stiffness, photophobia, phonophobia, sinusitis, rhinitis. CARDIAC: Negative for any chest pain, dyspnea on exertion, paroxysmal nocturnal dyspnea, peripheral edema. PULMONARY: Negative for any shortness of breath, wheezing, COPD, or TB exposure. GASTROINTESTINAL: Negative for any abdominal pain, nausea, vomiting, bright red blood per rectum, melena. GENITOURINARY: Negative for any dysuria, hematuria, incontinence. INTEGUMENTARY: Negative for any rashes, cuts, insect bites. RHEUMATOLOGIC: Negative for any joint pains, photosensitive rashes, history of vasculitis or kidney problems. HEMATOLOGIC: Negative for any abnormal bruising, frequent infections or bleeding. PHYSICAL EXAM: GENERAL: Alert and oriented x 3. No acute distress. Well-nourished. EYES: EOMI. Anicteric. HENT: Moist mucous membranes. No scleral icterus. No cervical lymphadenopathy. LUNGS: Clear to auscultation bilaterally. No accessory muscle use. CARDIOVASCULAR: Regular rate and rhythm. No murmur. No JVD. ABDOMEN: Soft, non-tender and non-distended. No palpable masses. EXTREMITIES: No edema. Non-tender.?SKIN: No rashes or lesions. Warm. NEUROLOGIC: No focal neurological deficits. CN II-XII grossly intact, but not individually tested. PSYCHIATRIC: Cooperative. Appropriate mood and affect. LABORATORY: [ ] Hematology Labs: Test 02/24/25 08:56 Range/Units White Blood Count 21.1 H 4.8-10.8 K/uL Red Blood Count 2.21 L 4.00-5.50 MIL/uL Hemoglobin 7.0 *L 12.0-16.0 g/dL Hematocrit 20.5 *L 36-48 % Mean Corpuscular Volume 92.8 79-99 fL Mean Corpuscular Hemoglobin 31.7 27.0-33.0 pg Mean Corpuscular Hemoglobin Concent 34.1 32.0-36.0 g/dL Red Cell Distribution Width 14.1 11.0-15.5 % Platelet Count 200 130-400 K/uL Mean Platelet Volume 11.6 H 7.5-10.5 fL Immature Granulocyte % (Auto) 1.6 H 0-1 % Neutrophils (%) (Auto) 86.8 H 40.0-77.0 % Lymphocytes (%) (Auto) 6.8 L 21.0-51.0 % Monocytes (%) (Auto) 4.7 3.0-13.0 % Eosinophils (%) (Auto) 0.0 0.0-8.0 % Basophils (%) (Auto) 0.1 0.0-5.0 % Neutrophils # (Auto) 18.3 H 1.8-7.7 K/uL Lymphocytes # (Auto) 1.4 1.0-4.8 K/uL Monocytes # (Auto) 1.0 0.1-1.0 K/uL Eosinophils # (Auto) 0.00 0.00-0.70 K/uL Basophils # (Auto) 0.02 0.00-0.20 K/uL Absolute Immature Granulocyte (auto 0.33 0-1 K/uL Nucleated Red Blood Cells 0.6 H 0.0-0.19 % Chemistry Labs: Test 02/25/25 06:34 02/24/25 08:56 Range/Units Whole Blood Glucose 152 #H 70-110 MG/DL Sodium Level 131 L 136-145 mmol/L Potassium Level 4.3 3.5-5.1 mmol/L Chloride Level 97 L 101-111 mmol/L Carbon Dioxide Level 21 21-32 mmol/L Blood Urea Nitrogen 76 *H 7-18 mg/dL Creatinine 4.7 H 0.5-1.0 mg/dL Glomerular Filtration Rate Calc 9 >90 mL/min Random Glucose 132 H 70-105 mg/dL Lactic Acid Level 2.6 H 0.8-2.5 mmol/L Uric Acid 6.8 2.6-7.2 mg/dL Total Calcium 7.1 L 8.5-10.1 mg/dL Phosphorus Level 6.5 H 2.5-4.9 mg/dL Magnesium Level 2.00 1.80-2.40 mg/dL Total Bilirubin 2.7 H 0.2-1.0 mg/dL Aspartate Amino Transf (AST/SGOT) 1219 *H 10-37 U/L Alanine Aminotransferase (ALT/SGPT) 834 *H 12-78 U/L Alkaline Phosphatase 445 H 50-136 U/L Total Creatine Kinase 398 H 21-232 U/L Troponin I High Sensitivity 643.7 *H 4-50 ng/L Total Protein 6.2 6.0-8.3 g/dL Albumin 2.2 L 3.5-5.0 g/dL Triglycerides Level 59 30-200 mg/dL Cholesterol Level 86 <200 mg/dL LDL Cholesterol 40 0-99 mg/dL HDL Cholesterol 23 L 35-85 mg/dL DIAGNOSTICS / RADIOLOGY: REASON: hypoxic ORDERING PHYSICIAN: ANTHONY CHIU PROCEDURE: CXR1VW - CHEST 1VW Exam Type: CHEST 1VW Clinical Information: hypoxic Comparison: None Findings: Left PICC line is noted with tip within the mid superior vena cava and there are no other interval changes. IMPRESSION: Left PICC line as noted. DICTATED BY: KIT ALEMAN MD DATE: 02/24/25 1149 REASON: PICC PLACEMENT ORDERING PHYSICIAN: ANTHONY CHIU PROCEDURE: CXR1VW - CHEST 1VW Exam Type: CHEST 1VW Clinical Information: PICC PLACEMENT Comparison: None Findings: Left PICC line is noted with tip within the mid superior vena cava and there are no other interval changes. IMPRESSION: Left PICC line as noted. DICTATED BY: KIT ALEMAN MD DATE: 02/23/25 1429 REASON: rule out intrabdominal infection ORDERING PHYSICIAN: ANTHONY CHIU PROCEDURE: ABD PEL WO - CT ABDOMEN/PELVIS W/O CONTRAST Exam Type: CT ABDOMEN/PELVIS W/O CONTRAST Clinical Information: rule out intrabdominal infection Comparison: None CT Dose Index (CTDI): 10.20 mGy Dose Length Product (DLP): 530.00 total mGy-cm PROTOCOL: Routine noncontrast helical scanning of the abdomen and pelvis was performed at 5mm collimation. Findings: Please note that this is a noncontrast study but there is residual contrast within the urinary tract, probably from a recent exam. Please correlate with patient's immediate history. The liver is enlarged and there is a complex structure within the right lobe extending into the left lobe, large, centrally located and measuring 16.1 x 14.3 cm. The appearance of the structures that of a developing abscess or a parenchymal hematoma of the liver, less likely. No evidence of nephro or ureterolithiasis is found. No hydronephrosis or ureteral dilatation is seen. The lung bases are clear. The stomach is unremarkable. It shows no wall thickening. No gross ulceration is seen. It is not overly distended. There are no surrounding inflammatory changes. No wall lesions are identified to suggest cancer. The spleen is unremarkable. It is not enlarged. The pancreas shows normal anatomy. It is not fatty replaced. It shows no lesions. The pancreatic duct is not dilated. The gallbladder is surgically absent. The adrenal glands are unremarkable. There is no enlargement. No lesions are noted. The appendix is unremarkable. It shows no evidence of inflammation. No appendicolith is seen. The small bowel is unremarkable. There is no evidence of dilatation to suggest obstruction. No evidence of adynamic ileus is seen. There is no small bowel wall thickening to suggest enteritis. The colon is unremarkable. The urinary bladder is unremarkable. There is no wall thickening to suggest tumor or inflammation. There are no intraluminal calculi. There are no diverticula. There is no evidence of chronic bladder outlet obstruction. There is no evidence of urinary bladder distention to suggest urinary retention. Means catheter noted in place. The other pelvic structures are unremarkable. The bony and vascular structures are unremarkable for the patient's age. IMPRESSION: Hepatic abscess, less likely hematoma as noted above. This study was performed using dose reduction techniques to include automated exposure control and/or adjustment of the mA and/or kV according to patient size. DICTATED BY: KIT ALEMAN MD DATE: 02/23/25 1431 REASON: shortness of breath ORDERING PHYSICIAN: ELVIRA BRYAN [employer] PROCEDURE: CXR1VW - CHEST 1VW Exam Type: CHEST 1VW Clinical Information: shortness of breath Comparison: None Findings: The lungs are clear of infiltrates. The heart is enlarged. Bony and soft tissue structures of the chest wall are unremarkable. IMPRESSION: Cardiomegaly. Clear lungs. DICTATED BY: KIT ALEMNA MD DATE: 02/23/25 0903 ASSESSMENT: Acute renal failure Anemia Possible Septic shock, POA Possible acute ascending cholangitis, POA Triple-vessel disease, POA Non ST-elevation OR type , elevated troponins Paroxysmal atrial fibrillation with RVR Left ventricular systolic function is moderate, per echo on 02/19/2025 Global wall hypokinesis LVEF is 40-45%, per echo on 02/19/2025. Severe diastolic dysfunction (restrictive filling), per echo on 02/19/2025 Mild aortic, mitral, and tricuspid regurgitation, per echo on 02/19/2025. Bradycardia episodes, POA Rhino virus, possibly bronchopneumonia Transaminitis Polycystic liver disease Significant increase in the size of intrahepatic cystic lesions, associated with increased intrahepatic bile duct dilatation, per MRCP on 02/21/2025 Common bile duct dilatation AFib HTN dyslipidemia CAD CHF Dementia PLAN: Labs, diagnostic, radiologic exams reviewed and interpreted by myself and supervising physician. We have reviewed external records in detail Epogen 20,000 U SQ weekly. Require close monitoring of renal function and electrolytes Order CBC, CMP,and electrolytes in am Continue with antibiotics Renal diabetic diet BiPAP as necessary, for respiratory distress IV pressors as needed Monitor blood pressure adjust medication doses as needed Avoid hypotensive episodes May use Dilaudid 0.5 mg IV every 6 hours as needed for severe pain Monitor blood sugars Strict intake, output, and daily weight should be monitored Please renally adjust medications Avoid nephrotoxic and nonsteroidal drugs Avoid contrast if possible Will continue to monitor renal function, anemia, electrolytes Treatment plan discussed with patient Questions were answered We have discussed with the other team physicians in detail about the care plan We will continue to monitor the patient closely Total critical care time spent with patient, nursing staff, critical care team over 35 minutes ATTESTATION BY PHYSICIAN I have seen and examined the patient. I reviewed the documentation, medical decision making, and treatment plan as noted by the mid-level provider above. I agree with the findings and plan of care. EVGENY SMITH MD, ELIZABETH [facility] February 25, 2025 13:44
[2025-02-25] MEDS ORDERED: IpraTROPium 0.5 MG/2.5 ML INH IH PRN (15:00)
--- NOTE | 2025-02-25 16:22 | HMCSR ---
APPROVED REPORT EXAM: Two-dimensional and M-mode echocardiogram with Doppler and color Doppler. INDICATION ICD: Acute heart failure 2D Dimensions RVDd3.9 cmLVEF(%)53.1 (>50%)LVED Vol(simp.)57.0 mL IVSd1.2 (0.7-1.1cm)FS(%)26 %LVES Vol(simp.)28.0 mL LVDd3.1 (3.8-5.6cm)LA (2D)4.6 (1.6-4.0cm)LVEF(%, simp.)51 % PWd1.4 (0.7-1.1cm)Ao Root(2D)3.5 (2.0-3.7cm)LA ESV INDEX (BP)34.59 mL/m2 IVSs1.2 cmLVOT diam2.2 (1.8-2.4cm) LVDs2.3 (2.5-4.0cm) PWs1.7 cm Deformation Strain Apical 4-12.2 % Apical 2-14.9 % Apical 3-14.0 % Global Strain-13.7 % M-Mode Dimensions EPSS0.9 cm LA (MM)5.1 (1.6-4.0cm) Ao Root(MM)3.1 (2.0-3.7cm) Aortic Valve AoV Vmax1.8 m/Sravanthi Peak GR12.7 mmHgLVOT Vmax0.9 m/s AoV VTI0.2 mAo Mean GR5.8 mmHgLVOT VTI0.11 m PAZ (VMAX)1.89 cm2AVA (VTI) 2.0 cm2 Mitral Valve MV E Vmax45.4 cm/sDECEL [id number] ms MV A Vmax65.1 cm/sP 1/2 T35 ms E/A ratio0.7MVA (PHT)6.2 cm2 TDI E/E' Wqzkut06.7E/E' Lateral8.0 Medial E' Peak V2.19 cm/sLateral E' Peak V5.68 cm/s Pulmonary Valve PV Vmax1.2 m/sPV VTI0.11 mPV Mean GR3.1 mmHg PV Peak GR5.7 mmHgPI End Anai. Jared 97.7 cm/s Tricuspid Valve RAP (EST) 8 mmHgRVSP8.0 mmHg Left Ventricle The left ventricle is normal size. GLS -14.0% There is mild left ventricular wall thickness. LVEF is 50-55%. Stage I diastolic dysfunction. Right Ventricle The right ventricle is normal size. Right ventricular systolic function is borderline reduced. Atria The left atrium is borderline dilated. The right atrium size is normal. Aortic Valve The aortic valve is trileaflet, mildly thickened and opens well. Trace of aortic regurgitation is pre sent. There is no aortic valvular stenosis. Mitral Valve Mitral valve leaflets appear normal. Mild posterior annular calcification noted. Mitral valve leaflet s open well. There is trace of mitral valve regurgitation noted. There is no mitral valve stenosis. Tricuspid Valve The tricuspid valve is normal in structure. There is trace of tricuspid valve regurgitation noted. Pulmonic Valve The pulmonary valve is normal in structure. There is trace of pulmonic valvular regurgitation. Great Vessels The aortic root is normal in size. IVC is not well visualized. Pericardium There is no pericardial effusion. Other Information Quality : Technically difficult study due to body habitus Conclusion There is mild left ventricular wall thickness. Stage I diastolic dysfunction. GLS -14.0%
--- NOTE | 2025-02-25 19:17 | PN ---
INFECTIOUS DISEASE FOLLOWUP NOTE DATE OF SERVICE: 02/25/2025. SUBJECTIVE: The patient is seen and examined at bedside. No fever, no chills. No nausea, no vomiting. Remained in the ICU. The patient is still on vasopressor. ____ CT surgery, the patient is not a candidate for CABG at this time. Family continued to refuse blood transfusion. PHYSICAL EXAMINATION: VITAL SIGNS: Temperature 97.9. EYES: No icterus. Pupils equal and reactive. HENT: No oral thrush seen. Moist oral mucosa. NECK: Supple. No JVD or thyromegaly. LUNGS: Good air entry. No rales. No rhonchi. CARDIOVASCULAR: S1 and S2, regular. No murmur heard. ABDOMEN: Full, soft. Bowel sound is present. CENTRAL NERVOUS SYSTEM: Awake, alert and oriented x 3. No focal deficits. SKIN: No rashes. No itchiness. LYMPHATIC: No peripheral lymphadenopathy. BACK: No deformity. No pressure ulcer. MUSCULOSKELETAL: No joint swelling, erythema, or tenderness. ASSESSMENT: A 74-year-old female with multiple problems, which include: * Septic shock. * Liver abscess. * NSTEMI. * Acute renal failure. * Elevated liver enzymes. * Shock liver. * ____. * Multivessel coronary artery disease. PLAN: * Continue Zosyn. * Continue doxycycline. * Continue critical care support. * Continue pain management. * Continue vasopressor. * Continue antiemetic. * Monitor electrolyte. * The patient will be followed up closely. TID: [id number] RECEIPT: [id number]
[2025-02-26] VITALS (65 sets, daily range): BP systolic 70–139; BP diastolic 27–87; PULSE 31–130; RESP 11–116; TEMP 97–98.3; O2SAT 92–100
--- NOTE | 2025-02-26 08:52 | HMCIMG ---
Exam Type: CHEST 1VW Clinical Information: hypoxic Comparison: None Findings: Pulmonary pattern is as before. No worrisome interval changes have taken place. Impression: Stable exam.
--- NOTE | 2025-02-26 09:17 | NUR ---
PT FAMILY QUESTIONS NEED FOR VENIPUNCTURE. THEY DID NOT WANT PERIPHERAL VENIPUNCTURE. THEY THEN ASKED ME TO DRAW FROM PICC LINE. I EXPLAINED THAT I WOULD HAVE TO DISCARD INITIAL BLOOD DRAW FROM LINE THEN COLLECT SUFFICIENT SAMPLE TO FILL PEDI TUBES. THEY DID NOT WANT VENIPUNCTURE IT WOULD CAUSE DISCOMFORT TO PT. I ATTEMPTED TO DRAW FROM PICC LINE ONCE THEY AGREED BUT UNFORTUNATELY NO BLOOD RETURN FROM LINES. THEY HAVE ASKED ME TO WAIT FOR A DECISION ABOUT VENIPUNCTURE. THEY HAVE BEEN SPOKEN TO BY ICU TEAM ABOUT PALLIATIVE/HOSPICE/DNR/DNI. THEY UNDERSTAND THAT PT IS ANEMIC/UNABLE TO PROCEED WITH ANY INTERVENTION AT THIS TIME. I EXPLAINED CURRENT PLAN OF CARE/ANTIBIOTICS/VASOPRESSOR SUPPORT- I EXPLAINED THERE ARE NO CHANGES TO PT CONDITION OR PLAN OF CARE. I HAVE GIVEN THEM TIME TO MAKE CHOICES AND SPEAK WITH OTHER FAMILY MEMBERS. FAMILY MEMBERS PRESENT -SON TONEY/DAUGHTER BERE
--- NOTE | 2025-02-26 09:48 | NUR ---
FAMILY HAS NOW AGREED TO VENIPUNCTURE. IN PROGRESS
--- NOTE | 2025-02-26 10:04 | PN ---
NEPHROLOGY PROGRESS NOTE Date/Time Patient Seen: February 26, 2025 SUBJECTIVE: This is a 74 year old female with a history of AFib, HTN, dyslipidemia, CAD, CHF, and dementia She presented to [facility] as a transfer from [facility] for the Diagnosis of triple-vessel disease and for evaluation of a CABG. Per chart review the patient presented to [facility] and was found to have leukocytosis, normocytic anemia, hypokalemia, elevated LFTs, elevated troponin, and hypoalbuminemia. The patient is a Jehovah Witness. The patient had an ultrasound of the abdomen which revealed complex hepatic cyst apparently surgery was consulted in the past but patient declined intervention. Other significant finding was dilated common bile duct with sternal echogenic material with posterior shadowing favoring choledocholithiasis. She was noted with elevated BUN/creatinine. We have been consulted for renal failure Hemoglobin and iron panel was noted She has been started on Epogen and IV iron She was seen in the ICU REVIEW OF SYSTEMS: GENERAL: Negative for any nausea, vomiting, fevers, chills, or weight loss. NEUROLOGIC: Negative for any blurry vision, blind spots, double vision, facial asymmetry, dysphagia, dysarthria, hemiparesis, hemisensory deficits, vertigo, ataxia. HEENT: Negative for any head trauma, neck trauma, neck stiffness, photophobia, phonophobia, sinusitis, rhinitis. CARDIAC: Negative for any chest pain, dyspnea on exertion, paroxysmal nocturnal dyspnea, peripheral edema. PULMONARY: Negative for any shortness of breath, wheezing, COPD, or TB exposure. GASTROINTESTINAL: Negative for any abdominal pain, nausea, vomiting, bright red blood per rectum, melena. GENITOURINARY: Negative for any dysuria, hematuria, incontinence. INTEGUMENTARY: Negative for any rashes, cuts, insect bites. RHEUMATOLOGIC: Negative for any joint pains, photosensitive rashes, history of vasculitis or kidney problems. HEMATOLOGIC: Negative for any abnormal bruising, frequent infections or bleeding. PHYSICAL EXAM: GENERAL: Alert and oriented x 3. No acute distress. Well-nourished. EYES: EOMI. Anicteric. HENT: Moist mucous membranes. No scleral icterus. No cervical lymphadenopathy. LUNGS: Clear to auscultation bilaterally. No accessory muscle use. CARDIOVASCULAR: Regular rate and rhythm. No murmur. No JVD. ABDOMEN: Soft, non-tender and non-distended. No palpable masses. EXTREMITIES: No edema. Non-tender.?SKIN: No rashes or lesions. Warm. NEUROLOGIC: No focal neurological deficits. CN II-XII grossly intact, but not individually tested. PSYCHIATRIC: Cooperative. Appropriate mood and affect. LABORATORY: [ ] Chemistry Labs: Test 02/25/25 06:34 Range/Units Whole Blood Glucose 152 #H 70-110 MG/DL DIAGNOSTICS / RADIOLOGY: REASON: hypoxic ORDERING PHYSICIAN: ANTHONY CHIU PROCEDURE: CXR1VW - CHEST 1VW Exam Type: CHEST 1VW Clinical Information: hypoxic Comparison: None Findings: Pulmonary pattern is as before. No worrisome interval changes have taken place. Impression: Stable exam. DICTATED BY: KIT ALEMAN MD DATE: 02/26/25 0849 REASON: acute heart failure ORDERING PHYSICIAN: ANTHONY CHIU PROCEDURE: ECHO CMP - ECHO 2-D COMPLETE APPROVED REPORT EXAM: Two-dimensional and M-mode echocardiogram with Doppler and color Doppler. INDICATION ICD: Acute heart failure 2D Dimensions RVDd 3.9 cm LVEF(%) 53.1 (>50%) LVED Vol(simp.) 57.0 mL IVSd 1.2 (0.7-1.1cm) FS(%) 26 % LVES Vol(simp.) 28.0 mL LVDd 3.1 (3.8-5.6cm) LA (2D) 4.6 (1.6-4.0cm) LVEF(%, simp.) 51 % PWd 1.4 (0.7-1.1cm) Ao Root(2D) 3.5 (2.0-3.7cm) LA ESV INDEX (BP) 34.59 mL/m2 IVSs 1.2 cm LVOT diam 2.2 (1.8-2.4cm) LVDs 2.3 (2.5-4.0cm) PWs 1.7 cm Deformation Strain Apical 4 -12.2 % Apical 2 -14.9 % Apical 3 -14.0 % Global Strain -13.7 % M-Mode Dimensions EPSS 0.9 cm LA (MM) 5.1 (1.6-4.0cm) Ao Root(MM) 3.1 (2.0-3.7cm) Aortic Valve AoV Vmax 1.8 m/s Ao Peak GR 12.7 mmHg LVOT Vmax 0.9 m/s AoV VTI 0.2 m Ao Mean GR 5.8 mmHg LVOT VTI 0.11 m PAZ (VMAX) 1.89 cm2 PAZ (VTI) 2.0 cm2 Mitral Valve MV E Vmax 45.4 cm/s DECEL Time 109 ms MV A Vmax 65.1 cm/s P 1/2 T 35 ms E/A ratio 0.7 MVA (PHT) 6.2 cm2 TDI E/E' Medial 20.7 E/E' Lateral 8.0 Medial E' Peak V 2.19 cm/s Lateral E' Peak V 5.68 cm/s Pulmonary Valve PV Vmax 1.2 m/s PV VTI 0.11 m PV Mean GR 3.1 mmHg PV Peak GR 5.7 mmHg PI End Anai. Jared 97.7 cm/s Tricuspid Valve RAP (EST) 8 mmHg RVSP 8.0 mmHg Left Ventricle The left ventricle is normal size. GLS -14.0% There is mild left ventricular wall thickness. LVEF is 50-55%. Stage I diastolic dysfunction. Right Ventricle The right ventricle is normal size. Right ventricular systolic function is borderline reduced. Atria The left atrium is borderline dilated. The right atrium size is normal. Aortic Valve The aortic valve is trileaflet, mildly thickened and opens well. Trace of aortic regurgitation is present. There is no aortic valvular stenosis. Mitral Valve Mitral valve leaflets appear normal. Mild posterior annular calcification noted. Mitral valve leaflets open well. There is trace of mitral valve regurgitation noted. There is no mitral valve stenosis. Tricuspid Valve The tricuspid valve is normal in structure. There is trace of tricuspid valve regurgitation noted. Pulmonic Valve The pulmonary valve is normal in structure. There is trace of pulmonic valvular regurgitation. Great Vessels The aortic root is normal in size. IVC is not well visualized. Pericardium There is no pericardial effusion. Other Information Quality : Technically difficult study due to body habitus Conclusion There is mild left ventricular wall thickness. Stage I diastolic dysfunction. GLS -14.0% DICTATED BY: LORRIE HUYNH MD DATE: 02/25/25 1402 REASON: hypoxic ORDERING PHYSICIAN: ANTHONY CHIU PROCEDURE: CXR1VW - CHEST 1VW Exam Type: CHEST 1VW Clinical Information: hypoxic Comparison: None Findings: Left PICC line is noted with tip within the mid superior vena cava and there are no other interval changes. IMPRESSION: Left PICC line as noted. DICTATED BY: KIT ALEMAN MD DATE: 02/24/25 1149 REASON: PICC PLACEMENT ORDERING PHYSICIAN: ANTHONY CHIU PROCEDURE: CXR1VW - CHEST 1VW Exam Type: CHEST 1VW Clinical Information: PICC PLACEMENT Comparison: None Findings: Left PICC line is noted with tip within the mid superior vena cava and there are no other interval changes. IMPRESSION: Left PICC line as noted. DICTATED BY: KIT ALEMAN MD DATE: 02/23/25 1429 REASON: rule out intrabdominal infection ORDERING PHYSICIAN: ANTHONY CHIU PROCEDURE: ABD PEL WO - CT ABDOMEN/PELVIS W/O CONTRAST Exam Type: CT ABDOMEN/PELVIS W/O CONTRAST Clinical Information: rule out intrabdominal infection Comparison: None CT Dose Index (CTDI): 10.20 mGy Dose Length Product (DLP): 530.00 total mGy-cm PROTOCOL: Routine noncontrast helical scanning of the abdomen and pelvis was performed at 5mm collimation. Findings: Please note that this is a noncontrast study but there is residual contrast within the urinary tract, probably from a recent exam. Please correlate with patient's immediate history. The liver is enlarged and there is a complex structure within the right lobe extending into the left lobe, large, centrally located and measuring 16.1 x 14.3 cm. The appearance of the structures that of a developing abscess or a parenchymal hematoma of the liver, less likely. No evidence of nephro or ureterolithiasis is found. No hydronephrosis or ureteral dilatation is seen. The lung bases are clear. The stomach is unremarkable. It shows no wall thickening. No gross ulceration is seen. It is not overly distended. There are no surrounding inflammatory changes. No wall lesions are identified to suggest cancer. The spleen is unremarkable. It is not enlarged. The pancreas shows normal anatomy. It is not fatty replaced. It shows no lesions. The pancreatic duct is not dilated. The gallbladder is surgically absent. The adrenal glands are unremarkable. There is no enlargement. No lesions are noted. The appendix is unremarkable. It shows no evidence of inflammation. No appendicolith is seen. The small bowel is unremarkable. There is no evidence of dilatation to suggest obstruction. No evidence of adynamic ileus is seen. There is no small bowel wall thickening to suggest enteritis. The colon is unremarkable. The urinary bladder is unremarkable. There is no wall thickening to suggest tumor or inflammation. There are no intraluminal calculi. There are no diverticula. There is no evidence of chronic bladder outlet obstruction. There is no evidence of urinary bladder distention to suggest urinary retention. Means catheter noted in place. The other pelvic structures are unremarkable. The bony and vascular structures are unremarkable for the patient's age. IMPRESSION: Hepatic abscess, less likely hematoma as noted above. This study was performed using dose reduction techniques to include automated exposure control and/or adjustment of the mA and/or kV according to patient size. DICTATED BY: KIT ALEMAN MD DATE: 02/23/25 1431 REASON: shortness of breath ORDERING PHYSICIAN: ELVIRA BRYAN AT[employer]IC PHYSICS PROFESSOR PROCEDURE: CXR1VW - CHEST 1VW Exam Type: CHEST 1VW Clinical Information: shortness of breath Comparison: None Findings: The lungs are clear of infiltrates. The heart is enlarged. Bony and soft tissue structures of the chest wall are unremarkable. IMPRESSION: Cardiomegaly. Clear lungs. DICTATED BY: KIT ALEMAN MD DATE: 02/23/25 0903 ASSESSMENT: Acute renal failure Anemia Possible Septic shock, POA Possible acute ascending cholangitis, POA Triple-vessel disease, POA Non ST-elevation MS type , elevated troponins Paroxysmal atrial fibrillation with RVR Left ventricular systolic function is moderate, per echo on 02/19/2025 Global wall hypokinesis LVEF is 40-45%, per echo on 02/19/2025. Severe diastolic dysfunction (restrictive filling), per echo on 02/19/2025 Mild aortic, mitral, and tricuspid regurgitation, per echo on 02/19/2025. Bradycardia episodes, POA Rhino virus, possibly bronchopneumonia Transaminitis Polycystic liver disease Significant increase in the size of intrahepatic cystic lesions, associated with increased intrahepatic bile duct dilatation, per MRCP on 02/21/2025 Common bile duct dilatation AFib HTN dyslipidemia CAD CHF Dementia PLAN: Labs, diagnostic, radiologic exams reviewed and interpreted by myself and supervising physician. We have reviewed external records in detail At this time there is no need for emergent renal replacement therapy Any form of renal replacement therapy remains a high-risk procedure due to patient's underlying conditions This is discussed in detail with patient and family at the bedside, multiple questions were answered Require close monitoring of renal function and electrolytes Order CBC, CMP,and electrolytes in am Continue with antibiotics Renal diabetic diet BiPAP as necessary, for respiratory distress IV pressors as needed Monitor blood pressure adjust medication doses as needed Avoid hypotensive episodes May use Dilaudid 0.5 mg IV every 6 hours as needed for severe pain Monitor blood sugars Strict intake, output, and daily weight should be monitored Please renally adjust medications Avoid nephrotoxic and nonsteroidal drugs Avoid contrast if possible Will continue to monitor renal function, anemia, electrolytes Treatment plan discussed with patient Questions were answered We have discussed with the other team physicians in detail about the care plan We will continue to monitor the patient closely Total critical care time spent with patient, nursing staff, critical care team over 35 minutes ATTESTATION BY PHYSICIAN I have seen and examined the patient. I reviewed the documentation, medical decision making, and treatment plan as noted by the mid-level provider above. I agree with the findings and plan of care. EVGENY SMITH MD, ELIZABETH FNP February 26, 2025 10:04
[2025-02-26 10:12] LABS: BASOPHILS # (AUTO) 0.03 K/uL (0.00-0.20); BASOPHILS % (AUTO) 0.1 % (0.0-5.0); IMMATURE GRANULOCYTE ABSOLUTE 0.45 K/uL (0-1); LYMPHOCYTES # (AUTO) 0.7 K/uL (1.0-4.8); LYMPHOCYTES % (AUTO) 2.9 % (21.0-51.0); MEAN CORPUSCULAR HEMOGLOBIN 31.5 pg (27.0-33.0); MEAN CORPUSCULAR HGB CONC 34.3 g/dL (32.0-36.0); MEAN CORPUSCULAR VOLUME 91.7 fL (79-99); MONOCYTES # (AUTO) 0.7 K/uL (0.1-1.0); MONOCYTES % (AUTO) 2.7 % (3.0-13.0); NEUTROPHILS # (AUTO) 22.6 K/uL (1.8-7.7); NEUTROPHILS % (AUTO) 92.5 % (40.0-77.0); NUCLEATED RED BLOOD CELLS 3.7 % (0.0-0.19); PLATELET COUNT (AUTO) 174 K/uL (130-400); RED BLOOD CELL COUNT(AUTO) 1.81 MIL/uL (4.00-5.50); RED CELL DISTRIBUTION WIDTH 14.8 % (11.0-15.5); WHITE BLOOD COUNT (AUTO) 24.4 K/uL (4.8-10.8)
[2025-02-26 10:16] LABS: HEMATOCRIT 16.6 % (36-48)
[2025-02-26 10:28] LABS: ALBUMIN 1.9 g/dL (3.5-5.0); POTASSIUM 5.1 mmol/L (3.5-5.1)
--- NOTE | 2025-02-26 10:32 | PN ---
[facility] PROGRESS NOTE Date of Service: February 26, 2025 Time of Service: 10:23 SUBJECTIVE: [ ] Ms. Rodriguez is a 74 year old female with a history of AFib, HTN, dyslipidemia, CAD, CHF, and dementia who presented [place] [facility] [place] from [facility] for the Diagnosis of triple-vessel disease and for evaluation of a CABG. The patient was seen by me on arrival to [facility]. RN reports that on arrival patient's blood pressure was 82/44, heart rate 81, map 62, 98% on room air. He reports the patient was clammy and diaphoretic. EKG was done which showed sinus rhythm, PACs, L BBB, ST-elevation secondary to IVCD. Per chart review the patient presented to [facility] and was found to have leukocytosis, normocytic anemia, hypokalemia, elevated LFTs, elevated troponin, and hypoalbuminemia. The patient is a Jehovah Witness. The patient had an ultrasound of the abdomen which revealed complex hepatic cyst apparently surgery was consulted in the past but patient declined intervention. Other significant finding was dilated common bile duct with sternal echogenic material with posterior shadowing favoring choledocholithiasis. The patient was transferred on Levophed to ICU and was started on heparin drip. 02/23 patient is seen and evaluated earlier this morning at bedside, patient alert and oriented x3, on supplemental oxygen via nasal cannula at 2 L, saturating 98%, she remains on heparin drip and Levophed. Denies chest pain, denied shortness a breath. Chest x-ray reviewed, cardiomegaly with clear lungs. Patient noted to have leukocytosis, with WBC 9.4, hemoglobin stable at 9.6. The patient 3.1. Daughter is at bedside during my visit, updated. 02/24 patient is seen and examined at bedside, remains on Levophed for blood pressure support, BP 108/62, afebrile, saturating 98% 2 L nasal cannula. Patien t getting broad-spectrum IV antibiotics. Son is at the bedside during my visit. Ultrasound of the abdomen as well as CT of the abdomen suspected right liver lobe abscess, common bile duct and intrahepatic bile duct dilatation with choledocholithiasis is present. Discussed findings with both the patient and the son at bedside, all questions answered. Understood all the information provided. Patient hemoglobin today 7.0, hematocrit 20.5, persistent leukocytosis at 21.1. 02/25 patient is seen and examined at bedside, she remains alert oriented x3, remains on Levophed for blood pressure support, she is getting broad-spectrum IV antibiotics, getting nutritional support via TPN. BP 99/54, she is saturating 100% on 3 L via nasal cannula. Latest hemoglobin of 7.0, hematocrit 20.5, with WBC persistently elevated at 21.1. Date of service February Ms. Rodriguez is a 74 year old female with a history of AFib, HTN, dyslipidemia, CAD, CHF, and dementia who presented to [facility] as a transfer from [facility] for the Diagnosis of triple-vessel disease and for evaluation of a CABG Today, The patient remains on Levophed for blood pressure support, hemoglobin keeps dropping, today at 5.7, hematocrit 16.6, persistent leukocytosis 24.4. The patient is still refusing blood transfusion as she is a Jehovah Witness. Ultrasound of the abdomen as well as CT of the abdomen suspected right liver lobe abscess, common bile duct and intrahepatic bile duct dilatation with choledocholithiasis is present. Patient evaluated by GI, ERCP not warranted given no evidence of choledocholithiasis on MRCP. IR consult was placed for drainage of liver abscess however patient was deemed not to be a candidate. Per Cardiothoracic surgeon, would not be safe to proceed with the knee surgical intervention this point from their standpoint. Advanced directive has been discussed with the family, patient remains full code. Prognosis very poor and guarded. REVIEW OF SYSTEMS 12-point ROS reviewed. All pertinent positives mentioned above. Otherwise negative, noncontributory, non-pertinent. PHYSICAL EXAM GENERAL APPEARANCE: The patient is awake, alert, and oriented, in no acute cardiopulmonary distress. Appears weak, diaphoretic. NEUROLOGICAL: Cranial nerves II-XII grossly intact. Motor is 5/5 in bilateral upper and lower extremities proximal to distal. No sensory deficits. HEENT: Face is symmetric. Pupils are equal and reactive. Extraocular movements are intact. NECK: Supple. No JVD. No thyromegaly. No submental, submandibular, pre- /postauricular, occipital or supraclavicular lymphadenopathy. CHEST: Normal chest expansion. No Telemetry. LUNGS: Absence of any rales, rhonchi or any wheezing. CARDIOVASCULAR: Regular. S1 and S2 normal. No appreciable rubs, murmurs or gallops. ABDOMEN: Soft, nontender, and nondistended. There is no rebound, voluntary guarding, or rigidity. : Deferred. No Means. EXTREMITIES: Non-edematous and not cyanotic. No clubbing. Good capillary refill. SKIN: No skin breakdown. Vital Signs (last 8hr) Date Time Temp Pulse Resp B/P (MAP) Pulse Ox O2 Delivery O2 Flow Rate FiO2 02/26/25 07:01 98 18 N/Cannula Low lpm 2.0 28 02/26/25 06:00 95 12 116/50 98 02/26/25 05:00 96 12 129/73 97 02/26/25 04:00 96 Nasal Cannula* 3 32 02/26/25 04:00 98.1 94 12 107/73 98 02/26/25 03:00 96 12 129/73 97 02/26/25 02:44 95 12 116/50 98 LABS: Laboratory: Test 02/26/25 10:03 02/25/25 06:34 Range/Units White Blood Count 24.4 H 4.8-10.8 K/uL Red Blood Count 1.81 L 4.00-5.50 MIL/uL Hemoglobin 5.7 *L 12.0-16.0 g/dL Hematocrit 16.6 *L 36-48 % Mean Corpuscular Volume 91.7 79-99 fL Mean Corpuscular Hemoglobin 31.5 27.0-33.0 pg Mean Corpuscular Hemoglobin Concent 34.3 32.0-36.0 g/dL Red Cell Distribution Width 14.8 11.0-15.5 % Platelet Count 174 130-400 K/uL Mean Platelet Volume 11.0 H 7.5-10.5 fL Immature Granulocyte % (Auto) 1.8 H 0-1 % Neutrophils (%) (Auto) 92.5 H 40.0-77.0 % Lymphocytes (%) (Auto) 2.9 L 21.0-51.0 % Monocytes (%) (Auto) 2.7 L 3.0-13.0 % Eosinophils (%) (Auto) 0.0 0.0-8.0 % Basophils (%) (Auto) 0.1 0.0-5.0 % Neutrophils # (Auto) 22.6 H 1.8-7.7 K/uL Lymphocytes # (Auto) 0.7 L 1.0-4.8 K/uL Monocytes # (Auto) 0.7 0.1-1.0 K/uL Eosinophils # (Auto) 0.00 0.00-0.70 K/uL Basophils # (Auto) 0.03 0.00-0.20 K/uL Absolute Immature Granulocyte (auto 0.45 0-1 K/uL Nucleated Red Blood Cells 3.7 H 0.0-0.19 % Whole Blood Glucose 152 #H 70-110 MG/DL Current Medications Medications (Trade) Dose Ordered Sig/Nathan Route PRN Reason Start Time Stop Time Status Last Admin Dose Admin Acetaminophen (TYLenol 325MG TAB) 650 mg Q6H PRN PO FEVER/MILD PAIN LEVEL 1-3 02/23/25 00:00 03/25/25 00:00 Acetaminophen (TYLenol 650MG SUPPOSITORY) 650 mg Q6H PRN RC FEVER / MILD PAIN 1-3 IF NPO 02/23/25 00:00 03/25/25 00:00 Atorvastatin Calcium (LIPItor 40MG) 40 mg HS PO 02/23/25 00:15 03/25/25 00:14 Hold 02/23/25 01:51 40 MG Docusate Sodium (COLace 100MG CAP) 100 mg BID PRN PO CONSTIPATION 02/23/25 00:00 03/25/25 00:00 Doxycycline Hyclate 250 ml @ 125 mls/hr Q12H IV 02/23/25 09:30 03/05/25 09:29 02/26/25 09:08 125 MLS/HR Heparin Sodium/ Dextrose 250 ml @ 0 mls/hr PROTOCOL IV 02/23/25 00:30 03/25/25 00:29 Hold 02/23/25 01:55 15 MLS/HR Hydromorphone HCl (DiLAUDid 0.5MG INJ) 0.5 mg Q4H PRN IVP SEVERE PAIN (7-10) 02/23/25 12:00 02/28/25 11:59 02/26/25 07:53 0.5 MG Insulin Human Regular (humuLIN R 100 UNIT/ML 3ML) INSULIN SLIDING SCAL... ACHS SQ 02/23/25 07:30 02/25/25 12:15 DC Ipratropium [place] (AtrovENT UD) 0.5 MG [id number] IH 02/24/25 14:00 02/25/25 14:45 DC 02/25/25 07:11 0.5 MG Ipratropium [place] (AtrovENT UD) 0.5 MG [id number] PRN IH SHORTNESS OF BREATH 02/25/25 15:00 03/26/25 13:59 Iron Sucrose (VenoFER) 200 mg Q24H IV 02/24/25 11:00 02/27/25 10:59 02/25/25 10:00 200 MG Lactated Ringer's (Lactated Ringers 1000ml) 500 ml ONCE IV 02/23/25 09:30 02/23/25 09:31 DC 02/23/25 09:44 500 ML Lactulose (Constulose 20gm/ 30ml Udcup) 20 gm Q6H PRN PO CONSTIPATION 02/23/25 00:00 03/25/25 00:00 Magnesium Sulfate 50 ml @ 0 mls/hr PROTOCOL PRN IV low magnesium 02/23/25 13:00 03/25/25 12:59 Melatonin (Melatonin) 10 mg HS PO 02/23/25 21:00 03/25/25 20:59 02/25/25 21:19 10 MG Metronidazole/ Sodium Chloride 100 ml @ 100 mls/hr Q8H6 IVPB 02/23/25 22:00 03/05/25 21:59 02/26/25 05:17 100 MLS/HR Norepinephrine 250 ml @ 33.509 mls/ hr PROTOCOL IV 02/23/25 05:30 02/25/25 08:39 DC 02/23/25 12:31 33.509 MLS/HR Norepinephrine Bitartrate 32 mg/ Sodium Chloride 250 ml @ 0 mls/hr AD IV 02/25/25 09:00 02/25/25 08:39 DC Norepinephrine Bitartrate 32 mg/ Sodium Chloride 250 ml @ 0 mls/hr PROTOCOL IV 02/25/25 09:00 03/27/25 08:59 02/26/25 04:57 0.3 MLS/HR Ondansetron HCl (zoFRAN 4MG INJ) 4 mg Q6H PRN IVP NAUSEA/VOMITING 02/23/25 00:00 03/25/25 00:00 02/26/25 07:53 4 MG Pantoprazole Sodium (PROTonix 40MG INJ) 40 mg BID IVP 02/24/25 21:00 03/25/25 12:59 02/26/25 10:15 40 MG Pantoprazole Sodium (PROTonix 40MG INJ) 40 mg DAILY IVP 02/23/25 13:00 02/24/25 10:44 DC 02/24/25 10:18 40 MG Pharmacy Profile Note (Pharmacy Communication) 1 each ONCE MISC 02/25/25 09:00 03/04/25 08:59 Cancel Pharmacy Profile Note (Pharmacy Communication) 1 each ONCE MISC 02/23/25 19:00 02/23/25 19:16 DC Piperacillin Sod/ Tazobactam Sod (Zosyn 3.375gm+NS 50ml) 3.375 gm Q12H IV 02/23/25 09:30 03/05/25 09:29 02/26/25 10:15 3.375 GM Potassium Chloride 100 ml @ 100 mls/hr AD PRN IV POTASSIUM PROTOCOL 02/23/25 13:00 03/25/25 12:59 Potassium Chloride 100 ml @ 100 mls/hr AD PRN IV POTASSIUM PROTOCOL 02/23/25 13:00 03/25/25 12:59 Potassium Chloride (K-Dur/Klor-Con 20meq) 10 meq AD PRN PO POTASSIUM PROTOCOL 02/23/25 13:00 03/25/25 12:59 Potassium Chloride (KCl 10% Elixir 20meq/15ml) 10 meq AD PRN PO POTASSIUM PROTOCOL 02/23/25 13:00 03/25/25 12:59 Sodium Bicarbonate (Sodium Bicarbonate) 650 mg BID PO 02/23/25 21:00 03/25/25 20:59 02/25/25 21:18 650 MG Sodium Chloride 500 ml @ 0 mls/hr Q0M IV 02/24/25 11:00 03/26/25 10:59 Sodium Chloride 1,000 ml @ 50 mls/hr Q20H IV 02/23/25 09:30 02/24/25 10:40 DC 02/24/25 08:33 50 MLS/HR Temazepam (restORIL 15 MG CAP) 15 mg HS PRN PO INSOMNIA/SLEEP 02/23/25 00:00 03/25/25 00:00 Thiamine HCl (Vitamin B-1) 100 mg DAILY IM 02/24/25 09:00 02/24/25 10:22 DC Thiamine HCl (Vitamin B-1) 100 mg DAILY IV 02/24/25 10:30 03/26/25 10:29 02/26/25 10:16 100 MG Vitamin B Complex/ Vit C/Folic Acid (Nephrovite Tablet) 1 cap DAILY PO 02/24/25 09:00 03/26/25 08:59 DIAGNOSTICS / RADIOLOGY: [ ] ASSESSMENT: Septic shock, POA Acute ascending cholangitis, POA Suspected right liver lobe abscess, POA Common bile duct dilatation, POA Intrahepatic bile duct dilatation with choledocholithiasis, POA CAD with a Triple-vessel disease, POA Non ST-elevation MO type , elevated troponins Paroxysmal atrial fibrillation with RVR Left ventricular systolic function is moderate, per echo on 02/19/2025 Global wall hypokinesis LVEF is 40-45%, per echo on 02/19/2025. Severe diastolic dysfunction (restrictive filling), per echo on 02/19/2025 Mild aortic, mitral, and tricuspid regurgitation, per echo on 02/19/2025. Bradycardia episodes, POA Rhino virus, possibly bronchopneumonia Transaminitis possible shock liver Polycystic liver disease Significant increase in the size of intrahepatic cystic lesions, associated with increased intrahepatic bile duct dilatation, per MRCP on 02/21/2025 Common bile duct dilatation Chronic problem list: AFib, HTN, dyslipidemia, CAD, CHF, dementia Jehovah Witness Anemia of chronic disease PLAN: Patient remains admitted to the ICU Continue the patient on supplemental oxygen via nasal cannula at 2 L to keep oxygen saturation greater than 94% Continue the patient on Levophed, wean as tolerated Continue the patient on broad-spectrum IV antibiotics. Patient not a candidate for CABG per Cardiothoracic surgeon No need for ERCP per GI Per IR patient deemed not to be a candidate for drainage Patient and family still refusing blood, advanced directive discussed, patient remains full code. Prognosis of this patient is guarded. NEURO: Minimize central acting medications as possible. Fall Precautions. Well lighted room through the day and minimize interruptions through the night to prevent acute delirium. PULMONARY: Supplemental 02 as needed BiPAP as necessary, for respiratory distress Titrate Fio2 to keep Spo2 > or = 90% DuoNebs and CPT as needed IS hourly while awake for pulmonary hygiene prn Out of bed to chair as tolerated Maintain aspiration precautions at all times CARDIOVASCULAR: Follow hemodynamics. Vital signs per facility protocol GI & NUTRITION: Continue nutritional support Aspirations precautions Prokinetic agents and laxatives as needed KIDNEYS & ELECTROLYTES: Strict monitoring of intake and output Daily weights Avoid nephrotoxic agents Monitor electrolytes and replace as needed Goal urine output of 30mL/hr or 0.5mL/kg/hr Medications to be dosed according to renal function. Avoid contrast if possible ENDOCRINE: Maintain blood glucose between 100-180 at all times. Insulin sliding scale for blood glucose management Hypoglycemia and hyperglycemia protocol in place INFECTIOUS DISEASE: Trend temperature, WBC and procalcitonin level Follow cultures, deescalate antibiotics as soon as possible. Panculture if new onset fever HEMATOLOGY & COAGULATION: Monitor H&H. Keep Hgb > 7 Transfuse 1 unit of PRBC for Hgb < 7 Transfuse 1 pack of platelets of platelets < 20, 000 Watch for any signs and symptoms of bleeding SKIN: Pressure ulcer prevention per facility protocol Specialty mattress as needed ORTHO/REHAB Continue PT/OT PRN: MEDICATIONS Tylenol 650 mg po every 4 hrs for fever zofran 4 mg IV every 6 hrs for n/v Hydralazine 5 mg IV every 4 hrs systolic pressure > 160 bowel regiment: lactulose 20 gm PO BID PRN constipation Supportive measures: Continue GI and DVT prophylaxis Disposition: Pending improvement in clinical condition All questions answered time spent: > 35 min FRANCIA SETHI MD February 26, 2025 10:32
[2025-02-26 10:38] LABS: BILIRUBIN,TOTAL 2.5 mg/dL (0.2-1.0); TOTAL PROTEIN, SERUM 6.1 g/dL (6.0-8.3)
--- NOTE | 2025-02-26 10:41 | PN ---
[facility] PROGRESS NOTE Date Patient Seen: February 26, 2025 Time of Visit: 10:23 Supervising Physician:Crispin Martin MD Primary Care Physician: Kin Guerra MD Outpatient Specialists: Inpatient Consults: NELIA, Dr Roche, Dr Kelton Patel MD , MD Dr Tito Lima MD PROBLEM LIST: Refractory combination Cardiogenic Shock SCAI Stage D, Septic shock, and hemorrhagic shock, POA Poor candidate for MCS due to Multiorgan failure Liver abscess w/ possible hemorrhagic component POA Acute on chronic anemia from blood loss - Refusing blood due to Jehovah witness MvCAD- Not a candidate for CABG 2/2 to above NSTEMI Type II POA- Not on AC due to acute anemia Acute metabolic encephalopathy Paroxysmal atrial fibrillation with RVR [id number] score 5 Points, HAS Bled Score of 4 Points (High Risk for bleed) Chronic diastolic Heart Failure with EF of 40-45% POA 02/19/25 Mild aortic, mitral, and tricuspid regurgitation, per echo on 02/19/2025. Non sustained VTach runs on 02/24/25 + Rhino virus POA (Tested + at [facility]) Transaminitis Polycystic liver disease Significant increase in the size of intrahepatic cystic lesions, associated with increased intrahepatic bile duct dilatation, per MRCP on 02/21/2025 at [facility] Common bile duct dilatation not a candidate for ERCP per GI Chronic problem list: AFib, HTN, dyslipidemia, CAD, CHF, dementia Jehovah Witness INTERVAL HISTORY: Pt assessed in room 208 in the ICU. Currently drowsy and sleepy as per RN he just gave her Dilaudid 0.5 mg IV due to severe abdominal pain. Daughter and son at the bedside. patient requiring blood pressure support with Levophed at 0.3 mcg/kg per minute blood pressure 116/50 heart rate in the 90s respiratory rate of 12 saturating 98% with 2 L via nasal cannula and she has remained afebrile with a T-max of 98.4 in the last 24 hours and a T low of 97.5. Urine output has been 50 mL in the last 24 hours. White count of 24.4 H&H of 5.7/16.6. Family has opted for no blood given that patient is Catholic. WBCs increased 24.4 H&H decreased to 5.7/16.6 platelet count of 174 K. Neutrophils 92.5 increasing. Chemistry lactic acid is 2.8 pending the rest of the chemistry. Chest x-ray with no worrisome interval changes. We will administer pt 500 mls of LR due to component of hemorrhagic shock in the presence of already septic and cardiogenic shock. I was called to the bedside for pt becoming unresponsive and episode of VT, amiodarone push administered and drip started. Decision was made to intubate. REVIEW OF SYSTEMS: unable to perform due to encephalopathy. PHYSICAL EXAM: GENERAL: Pale alert, weak, awake oriented x 2 HEENT: EOMI, Sclera non icteric, moist mucosa NECK: Supple, no JVD, trachea midline LUNGS: Diminished breath sounds bilaterally. No wheezes HEART: Regular rate and rhythm. Normal S1 and S2, without murmurs ABD: Abdomen soft, tender to RUQ Bowel sounds hypoactive EXT: No clubbing cyanosis + non pitting edema to BLE NEURO: lethargic and confused Vital Signs (last 8hr) Date Time Temp Pulse Resp B/P (MAP) Pulse Ox O2 Delivery O2 Flow Rate FiO2 02/26/25 07:01 98 18 N/Cannula Low lpm 2.0 28 02/26/25 06:00 95 12 116/50 98 02/26/25 05:00 96 12 129/73 97 02/26/25 04:00 96 Nasal Cannula* 3 32 02/26/25 04:00 98.1 94 12 107/73 98 02/26/25 03:00 96 12 129/73 97 02/26/25 02:44 95 12 116/50 98 LABS: Hematology Labs: Test 02/26/25 10:03 Range/Units White Blood Count 24.4 H 4.8-10.8 K/uL Red Blood Count 1.81 L 4.00-5.50 MIL/uL Hemoglobin 5.7 *L 12.0-16.0 g/dL Hematocrit 16.6 *L 36-48 % Mean Corpuscular Volume 91.7 79-99 fL Mean Corpuscular Hemoglobin 31.5 27.0-33.0 pg Mean Corpuscular Hemoglobin Concent 34.3 32.0-36.0 g/dL Red Cell Distribution Width 14.8 11.0-15.5 % Platelet Count 174 130-400 K/uL Mean Platelet Volume 11.0 H 7.5-10.5 fL Immature Granulocyte % (Auto) 1.8 H 0-1 % Neutrophils (%) (Auto) 92.5 H 40.0-77.0 % Lymphocytes (%) (Auto) 2.9 L 21.0-51.0 % Monocytes (%) (Auto) 2.7 L 3.0-13.0 % Eosinophils (%) (Auto) 0.0 0.0-8.0 % Basophils (%) (Auto) 0.1 0.0-5.0 % Neutrophils # (Auto) 22.6 H 1.8-7.7 K/uL Lymphocytes # (Auto) 0.7 L 1.0-4.8 K/uL Monocytes # (Auto) 0.7 0.1-1.0 K/uL Eosinophils # (Auto) 0.00 0.00-0.70 K/uL Basophils # (Auto) 0.03 0.00-0.20 K/uL Absolute Immature Granulocyte (auto 0.45 0-1 K/uL Nucleated Red Blood Cells 3.7 H 0.0-0.19 % Chemistry Labs: Test 02/25/25 06:34 Range/Units Whole Blood Glucose 152 #H 70-110 MG/DL DIAGNOSTICS / RADIOLOGY RESULTS: Chest XR; Findings: Pulmonary pattern is as before. No worrisome interval changes have taken place. Impression: Stable exam. PATIENT: YVONNE STINSON MR#: [id number] : 1950 SEX: F AGE: 74 LOCATION: [facility] ORDER 1204 STATUS: ADM IN REPORT#: [id number] SERVICE 1203 REASON: acute heart failure ORDERING PHYSICIAN: ANTHONY CHIU PROCEDURE: ECHO CMP - ECHO 2-D COMPLETE APPROVED REPORT EXAM: Two-dimensional and M-mode echocardiogram with Doppler and color Doppler. INDICATION ICD: Acute heart failure 2D Dimensions RVDd 3.9 cm LVEF(%) 53.1 (>50%) LVED Vol(simp.) 57.0 mL IVSd 1.2 (0.7-1.1cm) FS(%) 26 % LVES Vol(simp.) 28.0 mL LVDd 3.1 (3.8-5.6cm) LA (2D) 4.6 (1.6-4.0cm) LVEF(%, simp.) 51 % PWd 1.4 (0.7-1.1cm) Ao Root(2D) 3.5 (2.0-3.7cm) LA ESV INDEX (BP) 34.59 mL/m2 IVSs 1.2 cm LVOT diam 2.2 (1.8-2.4cm) LVDs 2.3 (2.5-4.0cm) PWs 1.7 cm Deformation Strain Apical 4 -12.2 % Apical 2 -14.9 % Apical 3 -14.0 % Global Strain -13.7 % M-Mode Dimensions EPSS 0.9 cm LA (MM) 5.1 (1.6-4.0cm) Ao Root(MM) 3.1 (2.0-3.7cm) Aortic Valve AoV Vmax 1.8 m/s Ao Peak GR 12.7 mmHg LVOT Vmax 0.9 m/s AoV VTI 0.2 m Ao Mean GR 5.8 mmHg LVOT VTI 0.11 m PAZ (VMAX) 1.89 cm2 PAZ (VTI) 2.0 cm2 Mitral Valve MV E Vmax 45.4 cm/s DECEL Time 109 ms MV A Vmax 65.1 cm/s P 1/2 T 35 ms E/A ratio 0.7 MVA (PHT) 6.2 cm2 TDI E/E' Medial 20.7 E/E' Lateral 8.0 Medial E' Peak V 2.19 cm/s Lateral E' Peak V 5.68 cm/s Pulmonary Valve PV Vmax 1.2 m/s PV VTI 0.11 m PV Mean GR 3.1 mmHg PV Peak GR 5.7 mmHg PI End Anai. Jared 97.7 cm/s Tricuspid Valve RAP (EST) 8 mmHg RVSP 8.0 mmHg Left Ventricle The left ventricle is normal size. GLS -14.0% There is mild left ventricular wall thickness. LVEF is 50-55%. Stage I diastolic dysfunction. Right Ventricle The right ventricle is normal size. Right ventricular systolic function is aileen rderline reduced. Atria The left atrium is borderline dilated. The right atrium size is normal. Aortic Valve The aortic valve is trileaflet, mildly thickened and opens well. Trace of aortic regurgitation is present. There is no aortic valvular stenosis. Mitral Valve Mitral valve leaflets appear normal. Mild posterior annular calcification noted. Mitral valve leaflets open well. There is trace of mitral valve regurgitation noted. There is no mitral valve stenosis. Tricuspid Valve The tricuspid valve is normal in structure. There is trace of tricuspid valve regurgitation noted. Pulmonic Valve The pulmonary valve is normal in structure. There is trace of pulmonic valvular regurgitation. Great Vessels The aortic root is normal in size. IVC is not well visualized. Pericardium There is no pericardial effusion. Other Information Quality : Technically difficult study due to body habitus Conclusion There is mild left ventricular wall thickness. Stage I diastolic dysfunction. GLS -14.0% DICTATED BY: LORRIE HUYNH MD DATE: 02/25/25 1402 ELECTRONICALLY SIGNED BY: LORRIE HUYNH MD DATE: 02/25/25 1622 PLAN ICU care Cardiac monitoring Levophed to maintain MAP > 65 Add midodrine 10mg TID PO IR to deemed pt to high risk for abscess drain intervention Pt is Jehovah witness and pt and family refusing blood or any blood products. Intubate if GCS < 8 bicarb drip and pushes as needed continue Abx per ID NEURO: Minimize central acting medications as possible. Fall Precautions. Well lighted room through the day and minimize interruptions through the night to prevent acute delirium. Patient with underlying history of dementia-melatonin q.h.s. monitor GCS notify provider if GCS < 8 PULMONARY: Supplemental 02 as needed Titrate Fio2 to keep Spo2 > or = 90% DuoNebs and CPT as needed IS hourly while awake for pulmonary hygiene Out of bed to chair as tolerated CXR with no obvious infiltrates Maintain o2 sats above 92% CARDIOVASCULAR: Follow hemodynamics. Titrate vasopressor to keep MAP >65 or systolic blood pressure >95mmHg Continuous cardiac monitoring Follow cardiology recommendations Drips: Levophed LINES: PIV PICC line GI & NUTRITION: Continue nutritional support Aspirations precautions Prokinetic agents and laxatives as needed resume clears GI consulted and appreciate recs KIDNEYS & ELECTROLYTES: Strict monitoring of intake and output Daily weights Avoid nephrotoxic agents Monitor electrolytes and replace as needed Goal urine output of 30mL/hr or 0.5mL/kg/hr potassium half protocol magnesium protocol ENDOCRINE: Maintain blood glucose between 100-180 at all times. Insulin sliding scale for blood glucose management A1C 5.9 at [facility]. TSH normal INFECTIOUS DISEASE: Trend temperature. Doyle-culture if febrile. Micro: [ ] Respiratory Urine Blood cultures negative covid - Influenza a and B swab - COVID-19 swab - Antibiotics: Zosyn Doxy HEMATOLOGY & COAGULATION: Monitor H&H. Keep Hgb > 7 Transfuse 1 unit of PRBC for Hgb < 7 Transfuse 1 pack of platelets of platelets < 20, 000 Watch for any signs and symptoms of bleeding SKIN: Pressure ulcer prevention per facility protocol Rehab: PT/OT Prophylaxis: GI: Protonix DVT: Patient currently on heparin drip on HOLD due to high risk for bleeding and anemia, SCDS Code Status: Full Resuscitation Disposition: ICU Other: This patient required multiple bedside visits to manage the patient, review blood gases, coordinate with respiratory, nurses, talk to ID, primary team and nephrology team review radiology exams, talk to the family members and discuss advanced directives. I personally spent 120 minutes of critical care time in treatment of this patient. This includes patient management, time at bedside, time reviewing tests, labs, appropriate images and studies, documentation, and patient care coordination. This time excludes separately billable procedures. Case was discussed and seen with my supervising physician. The above plan was formulated and agreed upon. ATTESTATION BY PHYSICIAN I reviewed the documentation, medical decision making, and treatment plan as noted by the mid-level provider above. I agree with the findings and plan of care. Crispin Martin MD, [facility] February 26, 2025 10:41
--- NOTE | 2025-02-26 10:52 | NUR ---
CRITICAL LABS- HGB/HCT-5.7/16.6 BUN/CREAT-107/7.0 AST/ALT-1820/1179 REPORTED TO Marci CHIU NP-
--- NOTE | 2025-02-26 10:59 | PN ---
[facility] Cardiology Progress Note CARDIOLOGY PROGRESS NOTE FEBRUARY 26, 2025 Problems: 1. Non ST-elevation myocardial infarction 2. Multifactorial shock including sepsis 3. Intrahepatic cyst versus abscess, history of polycystic liver disease 4. Acute liver injury 5. Acute renal insufficiency with a GFR less than 10 6. Anemia secondary to blood loss 7. CAD status post drug-eluting stent in the mid LAD 2008 with ejection fraction of 40-45% this admission 8. Synagogue declining blood products 9. Hypertension 10. Dyslipidemia 11. Diabetes mellitus type 2 12. History of paroxysmal atrial fibrillation Blood pressure is currently running 115/50 heart rate is in the 80-90. She has a history of paroxysmal atrial fibrillation but has been in sinus rhythm while [place] [address] hemoglobin has dropped to 5.7. Jessica telet count [id number]. The patient has Synagogue and is declining transfusion. Potassium 5.1 BUN 107 creatinine 7.0 up from 4.7. The patient continues on antibiotics iron supplementation midodrine and pressor support pantoprazole. 2D echocardiogram yesterday showed ejection fraction of 50-55% with grade 1 diastolic left ventricular dysfunction. There was trace mitral regurgitation trace tricuspid regurgitation and no pericardial effusion. She has been receiving iron infusions and Epogen shots. Prognosis is extremely poor. The family is aware. LORRIE HUYNH MD February 26, 2025 10:59
[2025-02-26] MEDS: SODIUM BICARB 50MEQ 50ML VIAL IV ONE (11:18)
[2025-02-26] MEDS: LACTATED RINGERS 1000ML IV ONE (11:18)
--- NOTE | 2025-02-26 12:44 | NUR ---
REFER TO AMELIA BOO RECORD
[2025-02-26] MEDS ORDERED: MIDAZOLAM 100MG-0.9% NS 100ML 100ML BAG IV SCH (13:00)
--- NOTE | 2025-02-26 13:21 | PRN ---
[facility] Procedure Note-ETube [facility] Pulmonary and Critical Care Service Procedure Note DATE OF PROCEDURE: 02/26/25 at 12:40 INDICATION: Acute hypoxemic respiratory failure Procedure performed: -Endotracheal intubation. Indication for procedure: -Acute respiratory failure. Pre-procedure checklist: Emergent procedure Time out per hospital policy. Medications used: -Etomidate 20 mg IV -rocuronium 50 mg IV Description of procedure: Hand hygiene was performed. Patient was sedated with IV Etomidate and paralyzed with IV rocuronium. A [7.5] endotracheal tube was inserted through the vocal cords on the first attempt using video-assisted glide scope with laryngeal scope blade size [3], grade [2] view. Tube secured at [21] cm at lip level. Bilateral breath sounds auscultated. Positive end-tidal CO2 capnography. Patient maintained 100% SpO2 during the entire procedure. Procedure completed without complications. Post-procedure chest x-ray showed proper placement of endotracheal tube. Procedure was performed under direct supervision by [Dr. Crispin Martin.] Time spent performing the procedure is independent of the time spent planning and coordinating the patient's care. ANTHONY CHIU [facility] February 26, 2025 13:21
--- NOTE | 2025-02-26 13:23 | EKG ---
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 : 1950 Requested By: ANTHONY CHIU Order Number: [id number] Reading MD: Jewel Farris Measurements Intervals [place] Rate: 87 P: 0 IL: 0 QRS: 231 QRSD: 194 T: 22 QT: 504 QTc: 606 Interpretive Statements Agonal rhythm Right superior axis deviation Left bundle branch block Compared to ECG 02/22/2025 23:16:00 Uncertain supraventricular rhythm now present Ventricular premature complex(es) now present Right superior axis now present Sinus rhythm no longer present Atrial premature complex(es) no longer present Intraventricular conduction delay no longer present ST (T wave) deviation no longer present Electronically Signed On 02-26-2025 17:28:05 CDT by Jewel Farris Please click the below link to view image of tracing.
[2025-02-26] MEDS: MIDAZOLAM 100MG-0.9% NS 100ML 100ML BAG IV SCH (13:24)
[2025-02-26] MEDS: FENTanyl 1000MCG+NS 100ML 100 ML IV SCH (13:25)
--- NOTE | 2025-02-26 13:29 | HMCIMG ---
Exam Type: CHEST 1VW Clinical Information: s/p code Comparison: None Findings: Endotracheal tube is noted with tip approximately 4cm from morenita and no interval changes are seen otherwise. IMPRESSION: Endotracheal tube tip as noted.
--- NOTE | 2025-02-26 13:38 | EKG ---
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
--- NOTE | 2025-02-26 13:38 | EKG ---
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 : 1950 Requested By: ANTHONY CHIU Order Number: [id number] Reading MD: Jewel Farris Measurements Intervals [place] Rate: 94 P: 0 NM: 0 QRS: -31 QRSD: 162 T: 37 QT: 466 QTc: 582 Interpretive Statements Atrial fibrillation with a competing junctional pacemaker with premature ventricular or aberrantly conducted complexes Left axis deviation Left bundle branch block Compared to ECG 02/26/2025 13:23:47 Left bundle-branch block now present Uncertain supraventricular rhythm no longer present Electronically Signed On 02-26-2025 17:29:21 CDT by Jewel Farris Please click the below link to view image of tracing.
--- NOTE | 2025-02-26 13:38 | EKG ---
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
[2025-02-26] MEDS: miDODRine HCL 5 MG TABLET PO SCH (14:00)
[2025-02-26] MEDS: SODIUM BICARB 8.4% 50ML SYRING 150 MEQ in DEXTROSE 5%-WATER 1,000 ML IVP SCH (14:12)
[2025-02-26] MEDS: VASOpressin 20 UNITS/ML 1ML Vi 40 UNITS in 0.9%NACL 50ML 40 ML IV SCH (14:20)
[2025-02-26 14:42] LABS: ABG BASE EXCESS -19.5 mmol/L (-2.0-3.0); ABG HCO3 8.9 mmol/L (21.0-28.0); ABG OXYGEN SATURATION 99.3 % (94.0-98.0); ABG PCO2 31 mmHg (32-45); CARBON MONOXIDE 0.3 % (0.5-1.5); HHb 0.7; PO2, ARTERIAL BG 375.4 mmHg (83.0-108.0); VENT MODE, BG AC (ROOM AIR)
[2025-02-26 15:20] LABS: ABG PH 7.074 (7.350-7.450)
[2025-02-26] MEDS ORDERED: MIDAZOLAM 100MG-0.9% NS 100ML 100ML BAG IV PRN (15:30)
--- NOTE | 2025-02-26 18:29 | NUR ---
PT IS NOW DNR. FAMILY AT BEDSIDE. I HAVE NOTIFIED DR SETHI , DR WILKINS, DR HUYNH OF PT DETERIORATION AND CODE BLUE
--- NOTE | 2025-02-26 18:46 | NUR ---
Deidre.EricS.A. REFERRAL #[id number]
[2025-02-26] MEDS: AMIOdarone 900MG VIAL 540 MG in DEXTROSE 5%-WATER 300 ML IV SCH (18:53)
[2025-02-26] MEDS ORDERED: EPINEPHrine PF 1MG (1:1,000) 10 MG in 0.9% NACL 250ML 250 ML IV SCH (22:30)
--- NOTE | 2025-02-27 05:01 | PN ---
INFECTIOUS DISEASE FOLLOWUP NOTE DATE OF SERVICE: 02/26/2025 SUBJECTIVE: The patient is seen and examined at bedside. No fever, no chills. No nausea, vomiting. No abdominal pain. No bleeding tendencies. remains in the ICU. She is still on vasopressor. Hemoglobin has dropped below 6. Still the patient continues to refuse blood transfusion due to regional belief. PHYSICAL EXAMINATION: VITAL SIGNS: Temperature 98.4. EYES: No icterus. Pupils are equal and reactive. HENT: No oral thrush seen. Moist oral mucosa. NECK: Supple. No JVD or thyromegaly. LUNGS: Good air entry. No rales. No rhonchi. CARDIOVASCULAR: S1 and S2 regular. No murmur heard. ABDOMEN: Soft and nontender. Bowel sounds are present. CENTRAL NERVOUS SYSTEM: Awake, alert, oriented x 3. No focal deficits. SKIN: No rashes. No itchiness. LYMPHATIC: No peripheral lymphadenopathy. MUSCULOSKELETAL: No joint swelling, erythema, or tenderness. ASSESSMENT: A 74-year-old female with multiple medical problems which include: * Septic shock. * Liver abscess. * Renal failure. * Elevated liver enzymes. * Pneumonia. * Coronary artery disease. * Obesity. PLAN: * Continue vasopressor. * Continue replacement. * Continue critical care support. * Continue . * Continue nutritional support. * Monitor electrolytes. * The patient will be followed up closely. TID: [id number] RECEIPT: [id number]
--- NOTE | 2025-02-27 05:15 | NUR ---
PATIENT REMAINED HYPOTENSIVE DESPITE INCREASIN PRESSORS TO MAX DOSE, PATIENT ALSO HAVING AGONAL BREATHING WHILE ON THE VENT. CALLED TRACI THOMAS TO OBTAIN ORERS FOR EPINEPHRINE DRIP. I WAS TALKING TO HIM, TELEMETRY NOTIFIED ME OF PATIENT GOING BRADYCARDIC IN 40'S BPM. I HUNG UP WITH DIRECTOR OF DONOR RELATIONS I WALKED INTO THE ROOM AND NOTICED WIDE QRS WITH HR IN 40'S MOST LIKELY A VENTRICULAR RHYTHEM. i PROCEEDED TO STOP AMIODARONE BUT MINUTES LATER PATIENT WENT ASYSTOLE. PATIENT WITH NO PULE OR COULD NOT HEAR A HEAT BEART UPON AUSCULTATION, BP COULD NOT BE DETERMINED, PULSE OXIMETRY WITH NO WAVE FORM AND NOT READING. I THEN PROCEEDED TO CALL ER DOCTOR FOR VERIFICATION AND PRONOUNCING OF WHICH WAS DETERMINED TO BE 2216. FAMILY MEMBER AT BEDSIDE WAS NOTIFIED OF TIME OF AND ASK HIM TO REACH OUT TO HIS FAMILY AND GIVE THEM THE NEWS.
== END 2025-02-26 22:16 | DRG 871 ==
LOC: 2AH 23:02 → 2CV 23:47 → 2BH 02-23 02:21
PROVIDERS: ADMIT Internal Medicine; ATTEND Internal Medicine
PROC: 02HV33Z Insertion of Infusion Device into Superior Vena Cava, Percutaneous Approach (ICD-10-PCS; 2025-02-23)
PROC: B548ZZA Ultrasonography of Superior Vena Cava, Guidance (ICD-10-PCS; 2025-02-23)
PROC: 0BH17EZ Insertion of Endotracheal Airway into Trachea, Via Natural or Artificial Opening (ICD-10-PCS; principal; 2025-02-26)
PROC: 5A1935Z Respiratory Ventilation, Less than 24 Consecutive Hours (ICD-10-PCS; 2025-02-26)
PROC: 5A12012 Performance of Cardiac Output, Single, Manual (ICD-10-PCS; 2025-02-26)
DX: A41.9 Sepsis, unspecified organism (principal); G93.41 Metabolic encephalopathy; R65.21 Severe sepsis with septic shock; J96.01 Acute respiratory failure with hypoxia; I21.A1 Myocardial infarction type 2; K72.00 Acute and subacute hepatic failure without coma; K75.0 Abscess of liver; I47.20 Ventricular tachycardia, unspecified; D62 Acute posthemorrhagic anemia; E87.20 Acidosis, unspecified; I50.42 Chronic combined systolic (congestive) and diastolic (congestive) heart failure; N17.9 Acute kidney failure, unspecified; I25.10 Atherosclerotic heart disease of native coronary artery without angina pectoris; I48.0 Paroxysmal atrial fibrillation; I11.0 Hypertensive heart disease with heart failure; E87.6 Hypokalemia; E78.5 Hyperlipidemia, unspecified; Z20.822 Contact with and (suspected) exposure to COVID-19; D63.8 Anemia in other chronic diseases classified elsewhere; E11.9 Type 2 diabetes mellitus without complications; E66.9 Obesity, unspecified; E88.09 Other disorders of plasma-protein metabolism, not elsewhere classified; F03.90 Unspecified dementia, unspecified severity, without behavioral disturbance, psychotic disturbance, mood disturbance, and anxiety; Z66 Do not resuscitate; R57.0 Cardiogenic shock; K80.50 Calculus of bile duct without cholangitis or cholecystitis without obstruction; I44.7 Left bundle-branch block, unspecified; I08.3 Combined rheumatic disorders of mitral, aortic and tricuspid valves; K59.00 Constipation, unspecified; Z95.5 Presence of coronary angioplasty implant and graft; Z95.1 Presence of aortocoronary bypass graft; Z79.899 Other long term (current) drug therapy
CPT/HCPCS: 31500; 36415; 36569; 36600; 71045; 74176; 76700; 80048; 80053; 80061; 80074; 82010; 82140; 82435; 82550; 82803; 82947; 82948; 83036; 83540; 83550; 83605; 83690; 83735; 83880; 84100; 84132; 84145; 84295; 84443; 84484; 84550; 85018; 85025; 85027; 85610; 85730; 86308; 86850; 86900; 86901; 87040; 92950; 93005; 93306; 93356; 94002; 94640; 94660; 94664; C1751; G0378; J0171; J0282; J1171; J1644; J1756; J2250; J2405; J2470; J2543; J3010; J3411; J3430; J3480; J3490; J7050; J7060; J7070; J7120; J0283; Q5106